=== PATIENT | male | born 2000 | race Caucasian/White ===

== ENCOUNTER 2020-02-19 05:21 | Emergency (ER) | payer OTHER, SELFPAY ==
--- NOTE | 2020-02-19 05:42 | ED.PSYCH ---
HPI - Psych General Stated Complaint: CRISIS Time Seen by Provider: 02/19/20 05:41 MDM - Psych Restraints Face to Face Assessment: Face to Face Assessment: Current Situation: After assessment of the patient, a review of the pertinent medical record and a discussion with nursing staff, I feel the patient requires a restrain intervention. Reaction To: [] Medical Condition: [] Behavioral State: [] Continued Need: []
[2020-02-19 05:55] VITALS: BP 143/98; PULSE 103; RESP 16; TEMP 36.2; O2SAT 99; BMI 21.5
[2020-02-19 06:27] VITALS: BP 143/98; PULSE 103; RESP 18; TEMP 36.2; O2SAT 99
[2020-02-19 06:30] VITALS: BP 143/98; PULSE 103; RESP 20; TEMP 36.2; O2SAT 99
--- NOTE | 2020-02-19 07:27 | ED.PSYCH ---
HPI - Psych General Chief Complaint: Psychiatric Symptoms Stated Complaint: CRISIS Time Seen by Provider: 02/19/20 05:41 Source: patient Mode of arrival: ambulatory History of Present Illness HPI Narrative: 19-year-old male who presents emergency department for evaluation of depression and suicidal ideation. The patient states that he has been depressed and having suicidal ideation for many years. He cannot identify a recent trigger but he states that he is currently suicidal without a plan. He states that the holiday season makes him very depressed. He states in the past he has tried to cut himself. Denies any attempted suicide prior to coming to the emergency department, denies any ingestions. He states that he has been in his usual state of health and has had no known COVID-19 exposures. He denied fever, chills, sore throat, cough, chest pain, shortness of breath, abdominal pain, diarrhea, loss of taste or smell. Review of Systems Review of Systems: Yes all other systems are reviewed and are negative Constitutional: Constitutional: Reports as per HPI Eyes: Eyes: Reports as per HPI ENT: Reports as per HPI Cardiovascular: Cardiovascular: Reports as per HPI Respiratory: Respiratory: Reports as per HPI Gastrointestinal: Gastrointestinal: Reports as per HPI Genitourinary: Genitourinary: Reports as per HPI Musculoskeletal: Musculoskeletal: Reports as per HPI Integumentary/Breasts: Skin/Breast: Reports as per HPI Neurologic: Reports as per HPI and Reports Abnormal speech present Psychiatric: Psychiatric: Reports as per HPI Allergic/Immunologic: Allergic/Immunologic: Reports as per HPI [facility] Past Medical History Attestation statement: The following information was validated with the patient. [facility] Narrative: The patient has a history of depression anxiety, he had a bilateral mastectomy several years ago, he denies tobacco, alcohol and drug use. Medical History (Updated 02/19/20 @ 12:25 by Adolph Aquino MD) Anxiety Depression PTSD (post-traumatic stress disorder) Social History Social History Alcohol intake: never Smoking Status: Never smoker Use of substances other than those prescribed or required for medical reasons: No Advance Directives: No Advance Directives Information Provided: No Physical Exam Vital Signs: Vital Signs: Last Vital Signs Temp 98.6 F 02/19/20 10:07 Pulse 94 02/19/20 10:07 Resp 14 02/19/20 10:07 BP 153/89 H 02/19/20 10:07 Pulse Ox 98 02/19/20 10:07 Body Mass Index 21.5 Const: General: cooperative and healthy appearing Nutritional Appearance: average body habitus Orientation/consciousness: oriented to person and oriented to place Limitations: no limitations HENMT: Head: Yes normal to inspection, Yes normocephalic and Yes atraumatic Ears: external ears normal General nose exam: Normal external nose present Face and sinus: Yes normal facial exam Mouth: Normal oral and palatal mucosa present Throat: Yes posterior oropharynx normal Eyes: General: appearance normal, both eyes and all related structures Alignment and Position: alignment normal Periorbital: periorbital findings normal Eyelids: Yes eyelids normal Conjunctivae: conjunctivae normal Sclerae: sclerae normal Pupils: Equal, round and reactive pupils present Direct Ophthalmoscopy: normal light reflex Neck: Neck: Yes normal visual inspection and Yes supple Thyroid: Thyroid normal Chest: Chest palpation & inspection: normal inspection of the chest and normal palpation of entire chest wall Resp: Effort & Inspection: normal respiratory effort and able to speak in complete sentences Auscultation: clear to auscultation bilaterally, no crackles, no rales and no rhonchi Cardio: Rate: regular rate Rhythm: regular rhythm Heart sounds: S1 normal heart sound present, S2 normal heart sound present and no murmurs GI: Inspection: Yes normal to inspection Palpation (GI): Soft to palpation, nontender and no guarding Auscultation: normal bowel sounds : General: Yes no CVA tenderness Back/Spine/Pelvis: Back: no CVA tenderness Cervical Spine: normal cervical lordosis Thoracic/Lumbar Spine: thoracic and lumbar spine normal to inspection Skin: General skin exam: no rashes or lesions noted Lesions: no lesions Rashes: no rashes Trauma: no lacerations or abrasions Neuro: General: oriented to person and oriented to place Cranial nerves: Yes CN's II-XII intact bilaterally and Yes Equal, round and reactive pupils present Cognition (Neuro): normal cognition Speech: Abnormal speech present Motor exam (neuro): 5/5 motor strength present throughout Extrem: General: Yes normal to inspection and Yes full ROM Psych: Appearance: grossly normal and well kempt Mental Status: mental status grossly normal Speech and movement: Normal speech and movement present Affect: normal affect Attitude: cooperative Thought process: Normal thought process present Thought content: Normal thought content present Insight: Good insight present (Psych) Judgement: Good judgement present (Psych) Course Course Course Narrative: 19-year-old male who presents emergency department for evaluation of suicidal ideation and depression, no recent trigger, no suicide plan, history of cutting himself in the past. Physical examination was unremarkable. The patient is medically cleared for crisis evaluation. 1222: Dr. Aquino's addendum: The patient was evaluated by crisis. The patient is not suicidal at this time and has no plan to hurt himself. Family is willing to pick the patient up. The patient will be discharged home MDM - Psych Restraints Face to Face Assessment: Face to Face Assessment: Current Situation: After assessment of the patient, a review of the pertinent medical record and a discussion with nursing staff, I feel the patient requires a restrain intervention. Reaction To: [] Medical Condition: [] Behavioral State: [] Continued Need: [] Lab Data Labs: Lab Results 02/19/20 Range/Units 07:07 Urine Opiates Screen Not Detected (Not Detect) Ur Barbiturates Screen Not Detected (Not Detect) Ur Phencyclidine Scrn Not Detected (Not Detect) Ur Amphetamines Screen Not Detected (Not Detect) U Benzodiazepines Scrn Not Detected (Not Detect) Urine Cocaine Screen Not Detected (Not Detect) U Marijuana (THC) Screen POSITIVE H (Not Detect) Discharge Plan Discharge Clinical Impression: Suicidal ideation, Depression Patient Disposition: Home, Self-Care Instructions: Depression (ED) Additional Instructions: You were evaluated by our crisis team and you are being discharged home If you feel like your symptoms are getting worse, if you are getting more depressed or develops any other symptoms, please return to the emergency department for evaluation. If you believe that you are going to hurt yourself or hurt anyone else, please return to the emergency department for help. Follow-up with your provider in 2 days for re-evaluation.
--- NOTE | 2020-02-19 07:29 | PC.NURSE ---
Report received. PT resting, denies complaints. PT to be seen by crisis.
[2020-02-19 08:00] LABS: Amphetamine Screen Urine Not Detected (Not Detect); Barbiturates, Urine Not Detected (Not Detect); Benzodiazepines Screen Urine Not Detected (Not Detect); Cannabinoid Screen Urine POSITIVE (Not Detect); Cocaine Screen Urine Not Detected (Not Detect); Opiate Screen Urine Not Detected (Not Detect); Phencyclidine Screen Urine Not Detected (Not Detect)
[2020-02-19 10:07] VITALS: BP 153/89; PULSE 94; RESP 14; TEMP 37; O2SAT 98
== END 2020-02-19 12:43 | disposition home or self-care (01) ==
PROVIDERS: Student in an Organized Health Care Education/Training Program; Emergency Provider Emergency Medicine Emergency Medical Services
DX: R45.851 Suicidal ideations (principal); F32.9 Major depressive disorder, single episode, unspecified; F43.10 Post-traumatic stress disorder, unspecified
CPT/HCPCS: 80307; 99284

== ENCOUNTER 2020-10-19 12:51 | Inpatient (IN) | payer OTHER, SELFPAY ==
--- NOTE | 2020-10-19 12:56 | ECG_ITS ---
Test Reason : OVERDOSE Blood Pressure : / mmHG Vent. Rate : 082 BPM Atrial Rate : 082 BPM P-R Int : 196 ms QRS Dur : 088 ms QT Int : 366 ms P-R-T Axes : 054 047 031 degrees QTc Int : 427 ms Normal sinus rhythm with sinus arrhythmia Possible Left atrial enlargement Borderline ECG No previous ECGs available Referred By: Machelle Ricci Electronically Signed By:DAYNE WILLETT
[2020-10-19 13:02] VITALS: BP 128/76; BP 130/80; PULSE 79; PULSE 90; RESP 17; TEMP 37.1; O2SAT 98; BMI 29.6
--- NOTE | 2020-10-19 13:02 | ED_ITS ---
HPI - Overdose General Chief Complaint: Psychiatric Symptoms Stated Complaint: drug ingestion Time Seen by Provider: 10/19/20 12:56 Source: patient Mode of arrival: ambulatory Limitations: no limitations History of Present Illness complaint: intentional overdose Onset (ago): hour(s) (2 am today almost 12 hours ago) Timing confirmed by: other (self) Substance Ingested acetaminophen: Strength of Substance: 500 Number of Pills Ingested: 30 Total Dose: 50864 Time of Ingestion: 02:00 Intent: suicide attempt How Overdose Was Discovered: called family/friend Context: Intentional Overdose: other (voices told him to) Associated symptoms: depression Treatments Prior to Arrival: none Related Data Home Medications Medication Instructions Recorded Confirmed atomoxetine 25 mg capsule 50 mg PO QAM 10/19/20 10/19/20 dextroamphetamine-amphetamine ER 15 mg PO QAM 10/19/20 10/19/20 15 mg 24hr capsule,extend release (Adderall XR) duloxetine 60 mg capsule,delayed 60 mg PO QAM 10/19/20 10/19/20 release olanzapine 10 mg tablet 10 mg PO BEDTIME 10/19/20 10/19/20 testosterone cypionate 200 mg/mL 100 mg SUBCUT CAMILO 10/19/20 10/19/20 intramuscular oil Allergies Allergy/AdvReac Type Severity Reaction Status Date / Time No Known Allergies Allergy Unverified 02/29/20 16:04 Albuterol Allergy Unknown Uncoded 02/29/20 16:04 Flovent HFA Allergy Unknown Uncoded 02/29/20 16:04 Review of Systems Review of Systems: Constitutional : No Fever, No Chills ENT/Mouth : No Ear Pain, No Nasal Congestion, No sore throat Eyes: No Eye Pain, No Swelling, No Redness Cardiovascular : No Chest Pain, No SOB Respiratory : No Cough, No Sputum, No Dyspnea Gastrointestinal : No Nausea, pos Vomiting (one time at 10am), No Diarrhea, No Hematochezia, No Melena Genitourinary : No Dysuria, No Urinary Frequency, No Hematuria Musculoskeletal : No Myalgias Skin : No Skin Lesions, No rash Neuro : No Weakness, No Numbness, No Paresthesias, No Dizziness, No Headache Psych : positive Anxiety, positive Depression, positive SI no HI, pos AH Heme/Lymph: No Lymphadenopathy Endocrine : No Polyuria, No Polydipsia All other systems reviewed and are negative [facility] Past Medical History Attestation statement: The following information was validated with the patient. Medical History Anxiety Depression PTSD (post-traumatic stress disorder) Social History Social History (Updated 10/19/20 @ 13:30 by Machelle Ricci DO) Alcohol intake: never Patient Tobacco Use Status: Never used Tobacco Use of substances other than those prescribed or required for medical reasons: No Advance Directives: No Advance Directives Information Provided: No Physical Exam Vital Signs: Vital Signs: Last Vital Signs Temp 98.8 F 10/19/20 13:02 Pulse 75 10/19/20 14:50 Resp 14 10/19/20 14:50 BP 128/76 10/19/20 13:02 Pulse Ox 98 10/19/20 14:50 Body Mass Index 29.6 Appearance: Alert. Oriented X3. No acute distress. Eyes: Pupils equal, round and reactive to light. ENT: Pharynx normal. Neck: Normal inspection. Neck supple. CVS: Normal heart rate and rhythm. Pulses normal. Respiratory: No respiratory distress. Breath sounds normal. Abdomen: Soft and non-tender. Skin: Skin warm and dry. Normal skin color. Normal skin turgor. Extremities: No lower extremity edema. No calf ttp Neuro: Oriented X 3. No motor deficit. No sensory deficit. CN 2- 12 intact Psych: pos SI no HI, calm and cooperative Course Course Course Narrative: poison control, continue on protocol, repeat APAP 530 call back with results. Still concerned about ingestion given reports though labs not consistent on nomogram MDM - Overdose MDM Narrative Medical decision making narrative: 19 yo patient significant APAP ingestion almost 12 hours ago did not vomit any pills up this was SI attempt, tox labs ordered, IV nac protocol ordered on arrival. Planned admit for 21 hour protocol pending labs Lab Data Result diagrams: 10/19/20 13:27 10/19/20 13:27 Labs: Lab Results 10/19/20 10/19/20 10/19/20 Range/Units 13:27 13:27 13:27 WBC 5.7 (4.8-10.8) X10*3/uL RBC 4.78 (4.20-5.50) X10*6/uL Hgb 14.4 (12.0-16.0) g/dl Hct 43.0 (37-47) % MCV 90.0 (80-98) fL MCH 30.1 (27.0-33.0) pg MCHC 33.5 (31.0-35.0) g/dl RDW 12.2 (11.0-16.0) % Plt Count 323 (160-400) X10*3/uL MPV 10.2 (9.4-12.3) fL Immature Gran % (Auto) 0.2 (0.0-0.4) % Neut % (Auto) 68.2 (45-73) % Lymph % (Auto) 22.1 (20-40) % [place] % (Auto) 8.4 (2-11) % Eos % (Auto) 0.2 (0-4) % Baso % (Auto) 0.9 (0-2) % Lymph # (Auto) 1.3 (1.2-4.9) X10*3/uL [place] # (Auto) 0.5 (0.1-1.2) X10*3/uL Eos # (Auto) 0.0 (0.0-0.4) X10*3/uL Baso # (Auto) 0.1 (0.0-0.2) X10*3/uL Abs Immat Gran (auto) 0.01 (0.00-0.03) X10*3/uL Absolute Neuts (auto) 3.9 (2.0-8.3) X10*3/uL Absolute Nucleated RBC 0.000 (0.0-0.012) X10*3/uL Nucleated RBC % (auto) 0.0 (0.0-0.2) /100WBC PT (9.9-13.0) SEC INR (0.9-1.1) APTT (24.1-38.0) SEC Sodium 139 (135-145) mmol/L Potassium 4.3 (3.3-5.1) mmol/L Chloride 111 H (96-108) mmol/L Carbon Dioxide 22 (22-29) mmol/L Anion Gap 10 L (12-20) BUN 6 L (9-16) mg/dL Creatinine 0.79 (0.5-1.4) mg/dL Estim Creat Clear Calc 166.2 Estimated GFR > 60 Random Glucose 119 H (60-115) mg/dL Calcium 9.0 (8.4-10.2) mg/dL Magnesium (1.6-2.6) mg/dL Total Bilirubin (0.0-1.0) mg/dL Direct Bilirubin (0.0-0.5) mg/dL AST (5-37) U/L ALT (0-40) U/L Alkaline Phosphatase (39-117) U/L Total Protein (6.5-8.0) g/dL Albumin (3.5-5.0) g/dL Lipase 9 (8-78) U/L Beta HCG, Quant < 2 mIU/mL Salicylates < 5.0 L (15-30) mg/dL Acetaminophen 23 (<30) mcg/mL Ethyl Alcohol mg/dL COVID-19 ([facility]) Negative (Negative) COVID-19 Clin Com See Note 10/19/20 10/19/20 10/19/20 Range/Units 13:27 13:27 13:27 WBC (4.8-10.8) X10*3/uL RBC (4.20-5.50) X10*6/uL Hgb (12.0-16.0) g/dl Hct (37-47) % MCV (80-98) fL MCH (27.0-33.0) pg MCHC (31.0-35.0) g/dl RDW (11.0-16.0) % Plt Count (160-400) X10*3/uL MPV (9.4-12.3) fL Immature Gran % (Auto) (0.0-0.4) % Neut % (Auto) (45-73) % Lymph % (Auto) (20-40) % [place] % (Auto) (2-11) % Eos % (Auto) (0-4) % Baso % (Auto) (0-2) % Lymph # (Auto) (1.2-4.9) X10*3/uL [place] # (Auto) (0.1-1.2) X10*3/uL Eos # (Auto) (0.0-0.4) X10*3/uL Baso # (Auto) (0.0-0.2) X10*3/uL Abs Immat Gran (auto) (0.00-0.03) X10*3/uL Absolute Neuts (auto) (2.0-8.3) X10*3/uL Absolute Nucleated RBC (0.0-0.012) X10*3/uL Nucleated RBC % (auto) (0.0-0.2) /100WBC PT 12.4 (9.9-13.0) SEC INR 1.1 (0.9-1.1) APTT 36.2 (24.1-38.0) SEC Sodium (135-145) mmol/L Potassium (3.3-5.1) mmol/L Chloride (96-108) mmol/L Carbon Dioxide (22-29) mmol/L Anion Gap (12-20) BUN (9-16) mg/dL Creatinine (0.5-1.4) mg/dL Estim Creat Clear Calc Estimated GFR Random Glucose (60-115) mg/dL Calcium (8.4-10.2) mg/dL Magnesium 2.0 (1.6-2.6) mg/dL Total Bilirubin 1.1 H (0.0-1.0) mg/dL Direct Bilirubin 0.4 (0.0-0.5) mg/dL AST 19 (5-37) U/L ALT 18 (0-40) U/L Alkaline Phosphatase 62 (39-117) U/L Total Protein 7.1 (6.5-8.0) g/dL Albumin 4.4 (3.5-5.0) g/dL Lipase (8-78) U/L Beta HCG, Quant mIU/mL Salicylates (15-30) mg/dL Acetaminophen (<30) mcg/mL Ethyl Alcohol < 10 mg/dL COVID-19 ([facility]IS) (Negative) COVID-19 Clin Com ECG Data Attestation: I personally reviewed and interpreted this ECG as follows: ECG interpretation date: 10/19/20 ECG interpretation time: 13:02 Interpretation: Rate: 82 Rhythm: NSR [place]: normal Normal P waves. Normal SANJAY. Normal QRS complex. ST T wave : normal no BOO qTC: normal prior studies: no acute ischemia The study has been interpreted contemporaneously by me. . Critical Care Time Critical Care Time Critical Care Time: Yes Total Critical Care Time: 35 Attestation: poison control consult, pharmacy consult, NAC protocol I attest to this time spent taking care of the patient Discharge Plan Discharge Clinical Impression: Depression Qualifiers: Depression Type: other depression Qualified Code(s): F32.89 - Other specified depressive episodes Acetaminophen overdose Qualifiers: Encounter type: initial encounter Injury intent: intentional self-harm Qualified Code(s): T39.1X2A - Poisoning by 4-Aminophenol derivatives, inte ntional self-harm, initial encounter Patient Disposition: Admitted As Inpatient
[2020-10-19] MEDS: 0.9 % Sodium Chloride 1,000 ML 999 ML IVCONT (13:15)
--- NOTE | 2020-10-19 13:23 | PC.NURSE ---
Spoke with Sujata Smith , cell (mom) concerned regarding next step, if he needs in-patient level of care or home care with support.
[2020-10-19 13:35] LABS: MANUAL DIFF FLAG NO
[2020-10-19 13:37] LABS: Basophils Absolute Auto 0.1 X10*3/uL (0.0-0.2); Basophils Percent Auto 0.9 % (0-2); Eosinophils Percent Auto 0.2 % (0-4); Imm Gran Abs Auto 0.01 X10*3/uL (0.00-0.03); Imm Gran Pct Auto 0.2 % (0.0-0.4); Lymphocytes Absolute Auto 1.3 X10*3/uL (1.2-4.9); Lymphocytes Percent Auto 22.1 % (20-40); Mean Corpuscular Hemoglobin 30.1 pg (27.0-33.0); Monocytes Absolute Auto 0.5 X10*3/uL (0.1-1.2); Monocytes Percent Auto 8.4 % (2-11); Neutrophils Absolute Auto 3.9 X10*3/uL (2.0-8.3); Neutrophils Percent Auto 68.2 % (45-73); Platelet Count 323 X10*3/uL (160-400); Red Cell Distribution Width 12.2 % (11.0-16.0); White Blood Count 5.7 X10*3/uL (4.8-10.8)
[2020-10-19 13:38] LABS: Venous Blood Gas Refer to POC result
[2020-10-19 13:44] LABS: INTERNATIONAL NORM RATIO 1.1 (0.9-1.1); Prothrombin Time 12.4 SEC (9.9-13.0)
[2020-10-19 13:46] LABS: Partial Thromboplastin Time 36.2 SEC (24.1-38.0)
[2020-10-19 13:57] LABS: COVID-19 Test Negative (Negative); Ethanol < 10 mg/dL; IDNOW Serial# 55D5AD1C
--- NOTE | 2020-10-19 13:57 | PHA.MEDREC ---
Pharmacy Consult ? Medication Reconciliation Pharmacy has completed the medication reconciliation. Patient reports taking Stattera 50mg. Patient has a recently fill history for Stattera 25mg and 60mg, it is possible that patient is being titrate up. Patient reports missing the testosterone dose on 10/15/2020. Rebecca Mc, EstebanD
[2020-10-19 13:59] LABS: Alanine Aminotransferase 18 U/L (0-40); Albumin Level 4.4 g/dL (3.5-5.0); Alkaline Phosphatase 62 U/L (39-117); Aspartate Amino Transferase 19 U/L (5-37); Bilirubin Direct 0.4 mg/dL (0.0-0.5); Bilirubin Total 1.1 mg/dL (0.0-1.0); Total Protein 7.1 g/dL (6.5-8.0)
[2020-10-19 14:01] LABS: Anion Gap 10 (12-20); Blood Urea Nitrogen 6 mg/dL (9-16); Carbon Dioxide 22 mmol/L (22-29); Chloride 111 mmol/L (96-108); Creatinine Clr Calc Pharmacy 166.2; Estimated Glomerular Filt Rate > 60; Glucose Random 119 mg/dL (60-115); Lipase 9 U/L (8-78); Potassium 4.3 mmol/L (3.3-5.1); Sodium 139 mmol/L (135-145)
[2020-10-19 14:05] LABS: Acetaminophen LAB 23 mcg/mL (<30); Salicylate < 5.0 mg/dL (15-30)
[2020-10-19 14:08] LABS: HCG Quantitative < 2 mIU/mL
[2020-10-19] MEDS: ondansetron HCL 4 MG/2 ML VIAL IVPUSH (14:49)
[2020-10-19 14:50] VITALS: PULSE 75; RESP 14; O2SAT 98
--- NOTE | 2020-10-19 15:16 | PC.NURSE ---
pt awake and alert in bed, cooperative. he continues to report thoughts of SI. requesting fluids and something to eat. pt had some nausea, given Zofran with good effect.
--- NOTE | 2020-10-19 15:20 | PM.IMHP ---
History of Present Illness Date of Service: 10/19/20 Chief Complaint: overdose 19yo F->M pt with PTSD, depression, ADHD presenting after intentionally ingesting 30 x 500mg APAP plus 5 x 200 mg IBU at 02:30 this morning in an attempt to kill himself. Endorses depressed mood. He hears voices, though not commanding him to hurt himself. Complains of nausea and epigastric pain. No fever or confusion. Denies other substance ingestion and does not use drugs other than THC in the past. Multiple psychiatric hospitalizations. In the ED, APAP level at 13:17 was 23, below the treatment threshold. However, Poison Control recommended that the patient be admitted and given the 20-hour NAC protocol, which has been started. Review of Systems Review of Systems: Yes all other systems are reviewed and are negative [facility] Medical History ADHD Anxiety Depression PTSD (post-traumatic stress disorder) Pertinent family history: no liver disease Social History Alcohol intake: never Patient Tobacco Use Status: Never used Tobacco Use of substances other than those prescribed or required for medical reasons: No Advance Directives: No Advance Directives Information Provided: No Meds Allergies Allergy/AdvReac Type Severity Reaction Status Date / Time No Known Allergies Allergy Unverified 02/29/20 16:04 Albuterol Allergy Unknown Uncoded 02/29/20 16:04 Flovent HFA Allergy Unknown Uncoded 02/29/20 16:04 Active Medications: Current Medications Generic Name Dose Route Start Last Admin Trade Name Freq PRN Reason Stop Dose Admin Acetylcysteine 4,550 mg/ 522.75 mls @ 125 mls/hr 10/19/20 14:20 Dextrose IV 10/19/20 18:30 ONCE ONE Acetylcysteine 9,100 mg/ 1,045.5 mls @ 62.5 mls/hr 10/19/20 18:30 Dextrose IV 10/20/20 11:13 ONCE ONE Pharmacy Consult 1 each 10/19/20 12:56 Consult Rx Perform Med Rec MISCELLANE ONCE PRN Consult order Home Medications Medication Instructions Recorded Confirmed Last Taken Type atomoxetine 25 mg capsule 50 mg PO QAM 10/19/20 10/19/20 10/18/20 History dextroamphetamine-amphetamine ER 15 mg PO QAM 10/19/20 10/19/20 10/18/20 History 15 mg 24hr capsule,extend release (Adderall XR) duloxetine 60 mg capsule,delayed 60 mg PO QAM 10/19/20 10/19/20 10/18/20 History release olanzapine 10 mg tablet 10 mg PO BEDTIME 10/19/20 10/19/20 10/18/20 History testosterone cypionate 200 mg/mL 100 mg SUBCUT CAMILO 10/19/20 10/19/20 10/08/20 History intramuscular oil Physical Exam Vital Signs and Narrative: Vital Signs: Last Vital Signs Temp 98.8 F 10/19/20 13:02 Pulse 75 10/19/20 14:50 Resp 14 10/19/20 14:50 BP 128/76 10/19/20 13:02 Pulse Ox 98 10/19/20 14:50 Body Mass Index 29.6 Gen: in no acute distress HEENT: sclera anicteric, moist mucus membranes Neck: supple Lungs: clear to auscultation bilaterally Heart: regular rate and rhythm, no murmurs Abd: soft, mild epigastric tenderness with no rebound, non-distended Ext: no edema Skin: warm/well-perfused Neuro: alert and oriented x3, no focal findings Psych: appropriate affect Results Labs CBC and Chem 7: 10/19/20 13:27 10/19/20 13:27 Labs: Laboratory Results - last 24 hr 10/19/20 10/19/20 10/19/20 13:27 13:27 13:27 MCV 90.0 MCH 30.1 MCHC 33.5 RDW 12.2 Plt Count 323 MPV 10.2 Immature Gran % (Auto) 0.2 Neut % (Auto) 68.2 Lymph % (Auto) 22.1 [place] % (Auto) 8.4 Eos % (Auto) 0.2 Baso % (Auto) 0.9 Lymph # (Auto) 1.3 [place] # (Auto) 0.5 Eos # (Auto) 0.0 Baso # (Auto) 0.1 Abs Immat Gran (auto) 0.01 Absolute Neuts (auto) 3.9 Absolute Nucleated RBC 0.000 Nucleated RBC % (auto) 0.0 PT INR APTT Anion Gap 10 L Estim Creat Clear Calc 166.2 Estimated GFR > 60 Random Glucose 119 H Calcium 9.0 Magnesium Total Bilirubin Direct Bilirubin AST ALT Alkaline Phosphatase Total Protein Albumin Lipase 9 Beta HCG, Quant < 2 Salicylates < 5.0 L Acetaminophen 23 Ethyl Alcohol COVID-19 ([facility]) Negative COVID-19 Clin Com See Note 10/19/20 10/19/20 10/19/20 13:27 13:27 13:27 MCV MCH MCHC RDW Plt Count MPV Immature Gran % (Auto) Neut % (Auto) Lymph % (Auto) [place] % (Auto) Eos % (Auto) Baso % (Auto) Lymph # (Auto) [place] # (Auto) Eos # (Auto) Baso # (Auto) Abs Immat Gran (auto) Absolute Neuts (auto) Absolute Nucleated RBC Nucleated RBC % (auto) PT 12.4 INR 1.1 APTT 36.2 Anion Gap Estim Creat Clear Calc Estimated GFR Random Glucose Calcium Magnesium 2.0 Total Bilirubin 1.1 H Direct Bilirubin 0.4 AST 19 ALT 18 Alkaline Phosphatase 62 Total Protein 7.1 Albumin 4.4 Lipase Beta HCG, Quant Salicylates Acetaminophen Ethyl Alcohol < 10 COVID-19 ([facility]) COVID-19 Clin Com EKG: Normal sinus rhythm with sinus arrhythmia Assessment and Plan (1) Acetaminophen overdose: Qualifiers: Encounter type: initial encounter Injury intent: intentional self-harm Qualified Code(s): T39.1X2A - Poisoning by 4-Aminophenol derivatives, intentional self-harm, initial encounter Status: Acute 19yo transgender F->M with ADHD, depression, PTSD presenting after intentional APAP overdose (91536 mg at 02:30) # APAP overdose - admit to [facility] [place] for 20-hr NAC protocol, check LFTs in am + update Poison Control # JOEL - JESSI rust consult after medically cleared # depression # PTSD - continue duloxetine + olanzapine # ADHD - Adderall + atomoxetine non-formulary; will need to be brought in from home # transgender - pt on testosterone therapy, can continue if brought in from home # VTE ppx - early ambulation; low-risk # code - FULL # dispo - will need IP psychiatry after medically cleared Quality Stroke Does the patient have a stroke diagnosis?: No VTE Prior VTE?: No VTE Risk Level:: Medical - low VTE Device Contraindication: N/A - Device Ordered VTE Drug Contraindication: N/A - Med Ordered
[2020-10-19 16:09] VITALS: PULSE 87; RESP 15
[2020-10-19] MEDS: DULoxetine HCl 60 MG CAPSULE.DR PO (16:09)
[2020-10-19] MEDS: 0.9 % Sodium Chloride Flush 3 ML SYRINGE IVFLUSH (16:10)
[2020-10-19 16:52] LABS: Amphetamine Screen Urine Not Detected (Not Detect); Barbiturates, Urine Not Detected (Not Detect); Benzodiazepines Screen Urine Not Detected (Not Detect); Cannabinoid Screen Urine Not Detected (Not Detect); Cocaine Screen Urine Not Detected (Not Detect); Fentanyl, urine Not Detected (Not Detect); Opiate Screen Urine Not Detected (Not Detect); Phencyclidine Screen Urine Not Detected (Not Detect)
[2020-10-19 16:53] LABS: Glucose Urine UA NEG (NEG); Leukocyte Esterase Urine NEG (NEG); Nitrite Urine NEG (NEG); PH 6.5 (5.0-8.0); Urine Blood NEG (NEG); Urine Ketones >=80 MG/DL (NEG); Urine Protein NEG (NEG-TRACE)
--- NOTE | 2020-10-19 17:03 | MHC.CARE ---
Pt will require an crisis evaluation once medically cleared. Given the pt's age, pt will require an BHN referral. Please consult CARE team to assist with Smart sheet (BHN) referral once cleared.
[2020-10-19 17:11] LABS: Appearance Urine CLEAR; Color Urine YELLOW
[2020-10-19 18:24] VITALS: BP 140/80; PULSE 85; RESP 18; TEMP 36.6; O2SAT 98
[2020-10-19 19:17] LABS: Acetaminophen LAB 3 mcg/mL (<30)
[2020-10-19] MEDS: OLANZapine 10 MG TABLET PO (21:18)
[2020-10-20 01:13] VITALS: BP 128/66; PULSE 104; RESP 15; TEMP 36.6; O2SAT 97
[2020-10-20 03:48] VITALS: BP 124/56; PULSE 84; RESP 17; TEMP 36.1; O2SAT 96
[2020-10-20 06:16] LABS: MANUAL DIFF FLAG NO
[2020-10-20 06:39] LABS: Eosinophils Percent Auto 1.1 % (0-4); Hematocrit 42.4 % (42-52); Imm Gran Pct Auto 0.3 % (0.0-0.4); Lymphocytes Percent Auto 36.1 % (20-40); Mean Corpuscular Hemoglobin 29.9 pg (27.0-33.0); Mean Corpuscular Volume 90.6 fL (80-98); Mean Platelet Volume 10.4 fL (9.4-12.4); Monocytes Percent Auto 7.3 % (2-11); Neutrophils Percent Auto 54.2 % (45-73); Platelet Count 292 X10*3/uL (160-400); Red Blood Count 4.68 X10*6/uL (4.60-5.80); Red Cell Distribution Width 12.6 % (11.0-16.0); White Blood Count 8.8 X10*3/uL (4.8-10.8)
[2020-10-20 06:40] LABS: Basophils Absolute Auto 0.1 X10*3/uL (0.0-0.2); Eosinophils Absolute Auto 0.1 X10*3/uL (0.0-0.4); Imm Gran Abs Auto 0.03 X10*3/uL (0.00-0.03); Lymphocytes Absolute Auto 3.2 X10*3/uL (1.2-4.9); Monocytes Absolute Auto 0.6 X10*3/uL (0.1-1.2); Neutrophils Absolute Auto 4.8 X10*3/uL (2.0-8.3)
[2020-10-20 06:47] LABS: INTERNATIONAL NORM RATIO 1.2 (0.9-1.1); Prothrombin Time 13.1 SEC (9.9-13.0)
[2020-10-20 07:10] LABS: Acetaminophen LAB < 1 mcg/mL (<30); Alanine Aminotransferase 16 U/L (0-40); Albumin Level 3.8 g/dL (3.5-5.0); Alkaline Phosphatase 51 U/L (39-117); Anion Gap 11 (12-20); Aspartate Amino Transferase 15 U/L (5-37); Bilirubin Total 1.6 mg/dL (0.0-1.0); Blood Urea Nitrogen 5 mg/dL (9-16); Calcium 8.7 mg/dL (8.4-10.2); Carbon Dioxide 24 mmol/L (22-29); Chloride 110 mmol/L (96-108); Estimated Glomerular Filt Rate > 60; Glucose Random 99 mg/dL (60-115); Potassium 4.2 mmol/L (3.3-5.1); Sodium 141 mmol/L (135-145); Total Protein 6.3 g/dL (6.5-8.0)
[2020-10-20 08:00] VITALS: BP 135/74; PULSE 90; RESP 20; TEMP 36.6; O2SAT 96
--- NOTE | 2020-10-20 08:31 | MHC.CM.PN ---
Per H&P, Patient will need Inpatient Psych once medically cleared (Suicide/Overdose attempt). PCP is DR. Alyx Shanks. Patient lives with his Foster Parents.CM has initiated and will follow for dc planning.
[2020-10-20] MEDS: DULoxetine HCl 60 MG CAPSULE.DR PO (09:39)
--- NOTE | 2020-10-20 10:58 | MHC.CARE ---
CARE Team has placed referral to [facility] crisis for evaluation today, as pt is part of the [facility] program with [facility]. ETA pending. Per Dr. Walden, pt will be medically cleared shortly.
[2020-10-20 11:29] VITALS: BP 110/84; PULSE 90; RESP 16; TEMP 37; O2SAT 97
[2020-10-20 12:17] LABS: INTERNATIONAL NORM RATIO 1.2 (0.9-1.1); Prothrombin Time 13.3 SEC (9.9-13.0)
[2020-10-20 12:41] LABS: Acetaminophen LAB < 1 mcg/mL (<30); Alanine Aminotransferase 19 U/L (0-40); Alkaline Phosphatase 55 U/L (39-117); Anion Gap 8 (12-20); Aspartate Amino Transferase 16 U/L (5-37); Bilirubin Total 1.6 mg/dL (0.0-1.0); Blood Urea Nitrogen 5 mg/dL (9-16); Calcium 9.2 mg/dL (8.4-10.2); Carbon Dioxide 27 mmol/L (22-29); Chloride 110 mmol/L (96-108); Creatinine Clr Calc Pharmacy 172.8; Estimated Glomerular Filt Rate > 60; Glucose Random 115 mg/dL (60-115); Potassium 4.4 mmol/L (3.3-5.1); Sodium 141 mmol/L (135-145); Total Protein 6.5 g/dL (6.5-8.0)
--- NOTE | 2020-10-20 12:59 | P.DS_ITS ---
DS: Providers Provider Date of Service: 10/20/20 Date of admission: 10/19/20 15:25 Primary care physician: TERESA Raza Consults: 10/19/20 15:11 Consult for Sitter Routine Reason for consultation: SI DS: Transfer Hospital Acceptance Reason for Transfer: inpatient psychiatry [place] of Facility: [facility] [place] Psychiatry Accepting Provider: Uche Garcia MD DS: Diagnosis Discharge Diagnosis (1) Acetaminophen overdose: Status: Acute (2) Suicide attempt by acetaminophen overdose: Status: Acute DS: Medications Discharge Medications Home Medications: Home Medications Medication Instructions Recorded Confirmed atomoxetine 25 mg capsule 50 mg PO QAM 10/19/20 10/19/20 dextroamphetamine-amphetamine ER 15 mg PO QAM 10/19/20 10/19/20 15 mg 24hr capsule,extend release (Adderall XR) duloxetine 60 mg capsule,delayed 60 mg PO QAM 10/19/20 10/19/20 release olanzapine 10 mg tablet 10 mg PO BEDTIME 10/19/20 10/19/20 testosterone cypionate 200 mg/mL 100 mg SUBCUT CAMILO 10/19/20 10/19/20 intramuscular oil DS: Summary Hospital Course Hospital Course: from my admission H+P, 10/19/20: 19yo F->M pt with PTSD, depression, ADHD presenting after intentionally ingesting 30 x 500mg APAP plus 5 x 200 mg IBU at 02:30 this morning in an attempt to kill himself.? Endorses depressed mood.? He hears voices, though not commanding him to hurt himself.? Complains of nausea and epigastric pain.? No fever or confusion.? Denies other substance ingestion and does not use drugs other than THC in the past.? Multiple psychiatric hospitalizations. In the ED, APAP level at 13:17 was 23, below the treatment threshold.? However, Poison Control recommended that the patient be admitted and given the 20-hour NAC protocol, which has been started. The patient was admitted to the [facility] and given the 20-hour NAC protocol. He did not develop any signs of liver injury and mental status was normal. He was cleared by poison control and transferred to inpatient psychiatry. Time Spent with Patient Time attestation: Total time spent providing and/or coordinating discharge services: Discharge coordination time: Greater than 30 minutes Quality: Stroke Does the patient have a stroke diagnosis?: No Physical Exam Vital Signs: Vital Signs: Last Vital Signs Temp 98.6 F 10/20/20 11:29 Pulse 90 10/20/20 11:29 Resp 16 10/20/20 11:29 BP 110/84 10/20/20 11:29 Pulse Ox 97 10/20/20 11:29 Body Mass Index 29.6 Gen: in no acute distress HEENT: sclera anicteric, moist mucus membranes Neck: supple Lungs: clear to auscultation bilaterally Heart: regular rate and rhythm, no murmurs Abd: soft, non-tender, non-distended Ext: no edema Skin: warm/well-perfused Neuro: alert and oriented x3, no focal findings, no asterixis noted Psych: restricted affect DS: Data Data Completed and Pending Completed studies during hospitalization [Text1]: Laboratory Results WBC 8.8 X10*3/uL (4.8-10.8) 10/20/20 05:09 RBC 4.68 X10*6/uL (4.60-5.80) 10/20/20 05:09 Hgb 14.0 g/dl (14.0-18.0) 10/20/20 05:09 Hct 42.4 % (42-52) 10/20/20 05:09 MCV 90.6 fL (80-98) 10/20/20 05:09 MCH 29.9 pg (27.0-33.0) 10/20/20 05:09 MCHC 33.0 g/dl (31.0-36.0) 10/20/20 05:09 RDW 12.6 % (11.0-16.0) 10/20/20 05:09 Plt Count 292 X10*3/uL (160-400) 10/20/20 05:09 MPV 10.4 fL (9.4-12.4) 10/20/20 05:09 Immature Gran % (Auto) 0.3 % (0.0-0.4) 10/20/20 05:09 Neut % (Auto) 54.2 % (45-73) 10/20/20 05:09 Lymph % (Auto) 36.1 % (20-40) 10/20/20 05:09 [place] % (Auto) 7.3 % (2-11) 10/20/20 05:09 Eos % (Auto) 1.1 % (0-4) 10/20/20 05:09 Baso % (Auto) 1.0 % (0-2) 10/20/20 05:09 Lymph # (Auto) 3.2 X10*3/uL (1.2-4.9) 10/20/20 05:09 [place] # (Auto) 0.6 X10*3/uL (0.1-1.2) 10/20/20 05:09 Eos # (Auto) 0.1 X10*3/uL (0.0-0.4) 10/20/20 05:09 Baso # (Auto) 0.1 X10*3/uL (0.0-0.2) 10/20/20 05:09 Abs Immat Gran (auto) 0.03 X10*3/uL (0.00-0.03) 10/20/20 05:09 Absolute Neuts (auto) 4.8 X10*3/uL (2.0-8.3) 10/20/20 05:09 Absolute Nucleated RBC 0.000 X10*3/uL (0.0-0.012) 10/20/20 05:09 Nucleated RBC % (auto) 0.0 /100WBC (0.0-0.2) 10/20/20 05:09 PT 13.3 SEC (9.9-13.0) H 10/20/20 12:03 INR 1.2 (0.9-1.1) H 10/20/20 12:03 APTT 36.2 SEC (24.1-38.0) 10/19/20 13:27 Sodium 141 mmol/L (135-145) 10/20/20 12:03 Potassium 4.4 mmol/L (3.3-5.1) 10/20/20 12:03 Chloride 110 mmol/L (96-108) H 10/20/20 12:03 Carbon Dioxide 27 mmol/L (22-29) 10/20/20 12:03 Anion Gap 8 (12-20) L 10/20/20 12:03 BUN 5 mg/dL (9-16) L 10/20/20 12:03 Creatinine 0.76 mg/dL (0.5-1.4) 10/20/20 12:03 Estim Creat Clear Calc 172.8 10/20/20 12:03 Estimated GFR > 60 10/20/20 12:03 Random Glucose 115 mg/dL (60-115) 10/20/20 12:03 Calcium 9.2 mg/dL (8.4-10.2) 10/20/20 12:03 Magnesium 2.0 mg/dL (1.6-2.6) 10/19/20 13:27 Total Bilirubin 1.6 mg/dL (0.0-1.0) H 10/20/20 12:03 Direct Bilirubin 0.4 mg/dL (0.0-0.5) 10/19/20 13:27 AST 16 U/L (5-37) 10/20/20 12:03 ALT 19 U/L (0-40) 10/20/20 12:03 Alkaline Phosphatase 55 U/L (39-117) 10/20/20 12:03 Total Protein 6.5 g/dL (6.5-8.0) 10/20/20 12:03 Albumin 4.0 g/dL (3.5-5.0) 10/20/20 12:03 Lipase 9 U/L (8-78) 10/19/20 13:27 Beta HCG, Quant < 2 mIU/mL 10/19/20 13:27 Urine Color YELLOW 10/19/20 16:27 Urine Appearance CLEAR 10/19/20 16:27 Urine pH 6.5 (5.0-8.0) 10/19/20 16:27 Ur Specific [place] 1.010 (1.005-1.025) 10/19/20 16:27 Urine Protein NEG MG/DL (NEG-TRACE) 10/19/20 16:27 Urine Glucose (UA) NEG MG/DL (NEG) 10/19/20 16:27 Urine Ketones >=80 MG/DL (NEG) 10/19/20 16:27 Urine Blood NEG (NEG) 10/19/20 16:27 Urine Nitrite NEG (NEG) 10/19/20 16:27 Ur Leukocyte Esterase NEG (NEG) 10/19/20 16:27 Salicylates < 5.0 mg/dL (15-30) L 10/19/20 13:27 Urine Opiates Screen Not Detected (Not Detect) 10/19/20 16:27 Urine Fentanyl Screen Not Detected (Not Detect) 10/19/20 16:27 Acetaminophen < 1 mcg/mL (<30) 10/20/20 12:03 Ur Barbiturates Screen Not Detected (Not Detect) 10/19/20 16:27 Ur Phencyclidine Scrn Not Detected (Not Detect) 10/19/20 16:27 Ur Amphetamines Screen Not Detected (Not Detect) 10/19/20 16:27 U Benzodiazepines Scrn Not Detected (Not Detect) 10/19/20 16:27 Urine Cocaine Screen Not Detected (Not Detect) 10/19/20 16:27 U Marijuana (THC) Screen Not Detected (Not Detect) 10/19/20 16:27 Ethyl Alcohol < 10 mg/dL 10/19/20 13:27 COVID-19 (GLADIS) Negative (Negative) 10/19/20 13:27 COVID-19 Clin Com See Note 10/19/20 13:27 Labs on day of discharge: Laboratory Results - last 24 hr 10/19/20 10/19/20 10/19/20 13:27 13:27 13:27 WBC 5.7 RBC 4.78 Hgb 14.4 Hct 43.0 MCV 90.0 MCH 30.1 MCHC 33.5 RDW 12.2 Plt Count 323 MPV 10.2 Immature Gran % (Auto) 0.2 Neut % (Auto) 68.2 Lymph % (Auto) 22.1 [place] % (Auto) 8.4 Eos % (Auto) 0.2 Baso % (Auto) 0.9 Lymph # (Auto) 1.3 [place] # (Auto) 0.5 Eos # (Auto) 0.0 Baso # (Auto) 0.1 Abs Immat Gran (auto) 0.01 Absolute Neuts (auto) 3.9 Absolute Nucleated RBC 0.000 Nucleated RBC % (auto) 0.0 PT INR APTT Sodium 139 Potassium 4.3 Chloride 111 H Carbon Dioxide 22 Anion Gap 10 L BUN 6 L Creatinine 0.79 Estim Creat Clear Calc 166.2 Estimated GFR > 60 Random Glucose 119 H Calcium 9.0 Magnesium Total Bilirubin Direct Bilirubin AST ALT Alkaline Phosphatase Total Protein Albumin Lipase 9 Beta HCG, Quant < 2 Urine Color Urine Appearance Urine pH Ur Specific [place] Urine Protein Urine Glucose (UA) Urine Ketones Urine Blood Urine Nitrite Ur Leukocyte Esterase Salicylates < 5.0 L Urine Opiates Screen Urine Fentanyl Screen Acetaminophen 23 Ur Barbiturates Screen Ur Phencyclidine Scrn Ur Amphetamines Screen U Benzodiazepines Scrn Urine Cocaine Screen U Marijuana (THC) Screen Ethyl Alcohol COVID-19 (GLADIS) Negative COVID-19 Collax Com See Note 10/19/20 10/19/20 10/19/20 13:27 13:27 13:27 WBC RBC Hgb Hct MCV MCH MCHC RDW Plt Count MPV Immature Gran % (Auto) Neut % (Auto) Lymph % (Auto) [place] % (Auto) Eos % (Auto) Baso % (Auto) Lymph # (Auto) [place] # (Auto) Eos # (Auto) Baso # (Auto) Abs Immat Gran (auto) Absolute Neuts (auto) Absolute Nucleated RBC Nucleated RBC % (auto) PT 12.4 INR 1.1 APTT 36.2 Sodium Potassium Chloride Carbon Dioxide Anion Gap BUN Creatinine Estim Creat Clear Calc Estimated GFR Random Glucose Calcium Magnesium 2.0 Total Bilirubin 1.1 H Direct Bilirubin 0.4 AST 19 ALT 18 Alkaline Phosphatase 62 Total Protein 7.1 Albumin 4.4 Lipase Beta HCG, Quant Urine Color Urine Appearance Urine pH Ur Specific [place] Urine Protein Urine Glucose (UA) Urine Ketones Urine Blood Urine Nitrite Ur Leukocyte Esterase Salicylates Urine Opiates Screen Urine Fentanyl Screen Acetaminophen Ur Barbiturates Screen Ur Phencyclidine Scrn Ur Amphetamines Screen U Benzodiazepines Scrn Urine Cocaine Screen U Marijuana (THC) Screen Ethyl Alcohol < 10 COVID-19 (GLADIS) COVID-19 [employer] 10/19/20 10/19/20 10/19/20 16:27 16:27 18:18 WBC RBC Hgb Hct MCV MCH MCHC RDW Plt Count MPV Immature Gran % (Auto) Neut % (Auto) Lymph % (Auto) [place] % (Auto) Eos % (Auto) Baso % (Auto) Lymph # (Auto) [place] # (Auto) Eos # (Auto) Baso # (Auto) Abs Immat Gran (auto) Absolute Neuts (auto) Absolute Nucleated RBC Nucleated RBC % (auto) PT INR APTT Sodium Potassium Chloride Carbon Dioxide Anion Gap BUN Creatinine Estim Creat Clear Calc Estimated GFR Random Glucose Calcium Magnesium Total Bilirubin Direct Bilirubin AST ALT Alkaline Phosphatase Total Protein Albumin Lipase Beta HCG, Quant Urine Color YELLOW Urine Appearance CLEAR Urine pH 6.5 Ur Specific [place] 1.010 Urine Protein NEG Urine Glucose (UA) NEG Urine Ketones >=80 Urine Blood NEG Urine Nitrite NEG Ur Leukocyte Esterase NEG Salicylates Urine Opiates Screen Not Detected Urine Fentanyl Screen Not Detected Acetaminophen 3 Ur Barbiturates Screen Not Detected Ur Phencyclidine Scrn Not Detected Ur Amphetamines Screen Not Detected U Benzodiazepines Scrn Not Detected Urine Cocaine Screen Not Detected U Marijuana (THC) Screen Not Detected Ethyl Alcohol COVID-19 (GLADIS) COVID-19 Collax Com 10/20/20 10/20/20 10/20/20 05:09 05:09 05:09 WBC 8.8 RBC 4.68 Hgb 14.0 Hct 42.4 MCV 90.6 MCH 29.9 MCHC 33.0 RDW 12.6 Plt Count 292 MPV 10.4 Immature Gran % (Auto) 0.3 Neut % (Auto) 54.2 Lymph % (Auto) 36.1 [place] % (Auto) 7.3 Eos % (Auto) 1.1 Baso % (Auto) 1.0 Lymph # (Auto) 3.2 [place] # (Auto) 0.6 Eos # (Auto) 0.1 Baso # (Auto) 0.1 Abs Immat Gran (auto) 0.03 Absolute Neuts (auto) 4.8 Absolute Nucleated RBC 0.000 Nucleated RBC % (auto) 0.0 PT 13.1 H INR 1.2 H APTT Sodium 141 Potassium 4.2 Chloride 110 H Carbon Dioxide 24 Anion Gap 11 L BUN 5 L Creatinine 0.71 Estim Creat Clear Calc 185.0 Estimated GFR > 60 Random Glucose 99 Calcium 8.7 Magnesium Total Bilirubin 1.6 H Direct Bilirubin AST 15 ALT 16 Alkaline Phosphatase 51 Total Protein 6.3 L Albumin 3.8 Lipase Beta HCG, Quant Urine Color Urine Appearance Urine pH Ur Specific [place] Urine Protein Urine Glucose (UA) Urine Ketones Urine Blood Urine Nitrite Ur Leukocyte Esterase Salicylates Urine Opiates Screen Urine Fentanyl Screen Acetaminophen < 1 Ur Barbiturates Screen Ur Phencyclidine Scrn Ur Amphetamines Screen U Benzodiazepines Scrn Urine Cocaine Screen U Marijuana (THC) Screen Ethyl Alcohol COVID-19 (GLADIS) COVID-19 Collax Com 10/20/20 10/20/20 12:03 12:03 WBC RBC Hgb Hct MCV MCH MCHC RDW Plt Count MPV Immature Gran % (Auto) Neut % (Auto) Lymph % (Auto) [place] % (Auto) Eos % (Auto) Baso % (Auto) Lymph # (Auto) [place] # (Auto) Eos # (Auto) Baso # (Auto) Abs Immat Gran (auto) Absolute Neuts (auto) Absolute Nucleated RBC Nucleated RBC % (auto) PT 13.3 H INR 1.2 H APTT Sodium 141 Potassium 4.4 Chloride 110 H Carbon Dioxide 27 Anion Gap 8 L BUN 5 L Creatinine 0.76 Estim Creat Clear Calc 172.8 Estimated GFR > 60 Random Glucose 115 Calcium 9.2 Magnesium Total Bilirubin 1.6 H Direct Bilirubin AST 16 ALT 19 Alkaline Phosphatase 55 Total Protein 6.5 Albumin 4.0 Lipase Beta HCG, Quant Urine Color Urine Appearance Urine pH Ur Specific [place] Urine Protein Urine Glucose (UA) Urine Ketones Urine Blood Urine Nitrite Ur Leukocyte Esterase Salicylates Urine Opiates Screen Urine Fentanyl Screen Acetaminophen < 1 Ur Barbiturates Screen Ur Phencyclidine Scrn Ur Amphetamines Screen U Benzodiazepines Scrn Urine Cocaine Screen U Marijuana (THC) Screen Ethyl Alcohol COVID-19 (GLADIS) COVID-19 Clin Com Discharge Plan Discharge Disposition: Xfer Psychiatric Hosp Referrals: Alyx Shanks PA [Primary Care Provider] - 1 Week Discharge Medications: Continued olanzapine 10 mg tablet 10 mg PO BEDTIME RF: 0 testosterone cypionate 200 mg/mL oil 100 mg subcut CAMILO RF: 0 dextroamphetamine-amphetamine [Adderall XR] 15 mg capsule,extended release 24 hr 15 mg PO QAM RF: 0 atomoxetine 25 mg capsule 50 mg PO QAM RF: 0 duloxetine 60 mg capsule,delayed release(DR/EC) 60 mg PO QAM RF: 0 Discharge Orders: Discharge Order (Routine); Ordered 10/20/20 Ordered By: Faviola Walden Forms: Patient Portal Discharge page Care Plan Goals: mental wellness Health Concerns: intentional overdose of acetaminophen Plan of Treatment: inpatient psychiatry Assessment: as above Patient Instructions: Depression (DC)
[2020-10-20 16:00] VITALS: BP 144/73; PULSE 94; RESP 18; TEMP 36.6; O2SAT 97
[2020-10-20 19:49] VITALS: BP 144/73; PULSE 94; RESP 18; TEMP 36.6; O2SAT 97
[2020-10-23 08:41] LABS: VBG Base Excess -2.2 mmol/L; VBG HCO3 22 mmol/L (22-26); VBG pCO2 37 mmHg; VBG pH 7.38 (7.32-7.43); VBG pO2 173 mmHg
[2020-10-24 09:11] LABS: Hemoglobin 14.4 g/dl (14.0-18.0); Red Blood Count 4.78 X10*6/uL (4.60-5.80)
[2020-10-24 09:12] LABS: Mean Corpuscular HGB Conc 33.5 g/dl (31.0-36.0)
[2020-10-24 09:13] LABS: Mean Platelet Volume 10.2 fL (9.4-12.4)
== END 2020-10-20 21:11 | DRG 817 ==
LOC: HO.ED 13:41 → HO.IMC 16:30 → HO.PADLT16 10-20 13:06 → HO.IMC 10-20 14:01
PROVIDERS: Admitting Provider Family Medicine; Emergency Provider Emergency Medicine; PCP Physician Assistant; Visit Provider Family Medicine
DX: T39.1X2A Poisoning by 4-Aminophenol derivatives, intentional self-harm, initial encounter (principal); R45.851 Suicidal ideations; F32.89 Other specified depressive episodes; F64.0 Transsexualism; F43.10 Post-traumatic stress disorder, unspecified; F90.9 Attention-deficit hyperactivity disorder, unspecified type; Z20.822 Contact with and (suspected) exposure to COVID-19; Z79.899 Other long term (current) drug therapy
CPT/HCPCS: 36415; 80048; 80053; 80076; 80143; 80179; 80307; 81003; 82077; 82803; 83690; 83735; 84702; 85025; 85610; 85730; 87635; 93005; 96365; 96366; 96375; 99285; 99291; J0132; J2405

== ENCOUNTER 2020-10-20 21:52 | Inpatient (IN) | payer OTHER, SELFPAY ==
[2020-10-20 22:15] VITALS: BP 129/90; PULSE 103; TEMP 36.8; O2SAT 96
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
[2020-10-20] MEDS: OLANZapine 7.5 MG TABLET 15 MG PO (23:05)
--- NOTE | 2020-10-20 23:56 | PC.ADMIT ---
Pt is a 19 year old male admitted to the unit after referral from the CARE team at [facility] on IM. Arrived on unit at 2210 and placed on 5 minute safety checks per unit policy. Legal status: CV. Medical issues: denies. Substance use: denies. Precipitant: Pt reports that he has been struggling with anxiety, depression, and auditory hallucinations, sometimes commanding in nature. He reports taking in impulsive overdose of 30-500 mg tylenol in a suicide attempt. At the time of admission, pt regrets making attempt and is happy that it was not successful. He presents with a broad affect, pleasant and cooperative throughout admission assessment. Denies current auditory/visual hallucinations. Denies SI/HI or self-harming thoughts. He does admit to recently engaging in self-harm behaviors by superficially cutting. Denies sleep disturbances. Appetite is good. Pt does have outpatient providers. Nurse to nurse done prior to admission. Medications verified via [facility] d/c orders. Araseli Avila NP notified of admission and orders obtained. Pt placed on 15 minute safety checks. Contracts for unit safety and agrees to seek out staff if necessary.
[2020-10-21] MEDS: DULoxetine HCl 30 MG CAPSULE.DR 90 MG PO (08:28)
[2020-10-21 09:20] VITALS: BP 119/76; PULSE 91; TEMP 36.4
[2020-10-21 12:00] VITALS: BP 129/65; PULSE 102; TEMP 36.7
[2020-10-21 16:00] VITALS: BP 118/58; PULSE 103; RESP 16; TEMP 36.6; O2SAT 96
[2020-10-21 21:18] VITALS: BP 119/71; PULSE 100; RESP 16; TEMP 36.7; O2SAT 96
[2020-10-21] MEDS: OLANZapine 7.5 MG TABLET 15 MG PO (21:28)
[2020-10-21] MEDS: traZODone HCL 50 MG TABLET PO (21:38)
[2020-10-21 22:29] VITALS: O2SAT 96
--- NOTE | 2020-10-21 23:27 | HO.PSYCHPN ---
Subjective Subjective Date of Service: 10/21/20 Reason For Visit: APAP overdose Subjective Notes: Whitt Order and Conditional Voluntary Guardianship: No Medication Compliance: Yes Attending Groups: No Review of Systems S/P TYLENOL od Mental Status Exam Mental Status Exam Narrative: A&O. In hospital attire, good hygiene, overweight withdrawn . No Tics or Tremors. No abnormal involuntary movements. flat not engaged. Non-pressured speech, spontaneous with regular rate and rhythm, normal volume and prosody. No prolonged speech latency or dysarthria. Mood is ?groggy,? affect is blunted. Currently denies SI/SIB/HI upon inquiry. Endorses AH and tactile hallucinations, denies VH or delusional thought content. Thoughts are coherent, organized. No known cognitive or memory impairment. Insight/ Judgment fair and adequate. Diagnostics Vital Signs (24Hr): Vital Signs - 24 hr 10/21/20 09:20 10/21/20 12:00 10/21/20 16:00 Temperature 97.6 F 98.0 F 97.9 F Pulse Rate 91 102 H 103 H Respiratory Rate 16 Blood Pressure 119/76 129/65 118/58 L Pulse Oximetry 96 10/21/20 21:18 10/21/20 22:29 Temperature 98.1 F Pulse Rate 100 Respiratory Rate 16 Blood Pressure 119/71 Pulse Oximetry 96 96 Medications Medications Current Medications Generic Name Dose Route Start Last Admin Trade Name Freq PRN Reason Stop Dose Admin Acetaminophen 650 mg 10/20/20 21:52 Acetaminophen 325 Mg Tablet PO Q6H PRN Headache/Pain Mild Scale (1-3) Al Hydroxide/Mg Hydroxide 30 ml 10/20/20 21:52 Magnesium Hydrox/Alum Hydrox 30 Ml Oral.Susp PO Q6H PRN Heartburn/Nausea Al Hydroxide/Mg Hydroxide 30 ml 10/20/20 22:44 Magnesium Hydrox/Alum Hydrox 30 Ml Oral.Susp PO Q4H PRN Heartburn Al Hydroxide/Mg Hydroxide 30 ml 10/21/20 09:19 Magnesium Hydrox/Alum Hydrox 30 Ml Oral.Susp PO Q4H PRN Heartburn/Nausea Duloxetine HCl 90 mg 10/21/20 09:00 10/21/20 08:28 Duloxetine Hcl 30 Mg Capsule.Dr PO 90 mg DAILY ARPIT Administration Hydroxyzine HCl 25 mg 10/20/20 21:52 Hydroxyzine Hcl 25 Mg Tablet PO Q6H PRN Anxiety Magnesium Hydroxide 30 ml 10/20/20 21:52 Milk Of Magnesia 30 Ml Oral.Susp PO DAILY PRN Constipation Non-Formulary Medication 100 mg 10/22/20 22:40 Testosterone Cypionate SUBCUT [facility]ILO ARPIT Olanzapine 15 mg 10/20/20 22:45 10/21/20 21:28 Olanzapine 7.5 Mg Tablet PO 15 mg BEDTIME ARPIT Administration Trazodone HCl 50 mg 10/20/20 21:52 10/21/20 21:38 Trazodone Hcl 50 Mg Tablet PO 50 mg BEDTIME PRN Administration Insomnia Allergies Allergies Allergy/AdvReac Type Severity Reaction Status Date / Time No Known Allergies Allergy Unverified 02/29/20 16:04 Albuterol Allergy Unknown Uncoded 02/29/20 16:04 Flovent HFA Allergy Unknown Uncoded 02/29/20 16:04 Assessment & Plan Assessment & Plan (1) ADHD: Status: Acute Code(s): F90.9 - Attention-deficit hyperactivity disorder, unspecified type (2) Suicide attempt by acetaminophen overdose: Status: Acute Code(s): T39.1X2A - Poisoning by 4-Aminophenol derivatives, intentional self-harm, initial encounter (3) Schizoaffective disorder, depressive type: Status: Acute Code(s): F25.1 - Schizoaffective disorder, depressive type (4) PTSD (post-traumatic stress disorder): Status: Acute Code(s): F43.10 - Post-traumatic stress disorder, unspecified (5) Anxiety disorder, unspecified: Status: Acute Code(s): F41.9 - Anxiety disorder, unspecified Assessment and Plan: 19 y.o. Transgender male who carries a dx of ADHD, PTSD, depression, and ANI. Preferred pronouns are he/him. He presented to [facility] [place] [facility] via ambulance on 10/19/20 after intentionally ingesting 30 tabs of 500 mg APAP and 5 tabs of 200 mg Ibuprofen at 02:30 in a suicide attempt. He is currently presenting with sx of command AH, tactile hallucinations, depressed mood, and inattention. He reports some benefit on cymbalta and asks to trial an increased dose due to positive benefit and tolerability. He says olanzapine has helped with sleep and anxiety but not AH, would also like to trial an increased dose. He is amenable to trialing off adderall XR during this inpatient stay, although he says he has been off it before and denies that it exacerbates AH. He denies benefit on strattera, will discontinue. He currently denies SI/SIB/HI and says he feels safe. He would like help with managing the voices, wants them to be quieter. Plan: 1. increase cymbalta to 90 mg to target sx of depression, PTSD. 2. Increase olanzapine to 15 mg QHS to target AH, reviewed risks and benefits including wt gain 3. Hold adderall XR 15 mg QAM due to possible activation of AH 4. discontinue strattera 60 mg due to lack of benefit 5. consider neuro consult, head CT as AH are new problem, r/o neulogic pathology 6. Monitor response to medications. Monitor for safety in the milieu. Discharge on stabilization. Patient seen. Chart reviewed. Discussed with team. Continue present tx plan encourage OOB Greater than 50% of the session was spent on counseling and/or coordination of care Reason for contiued inpatient stay Substantial Risk for: harm to self and rapid decompensation
[2020-10-22 08:11] VITALS: BP 115/65; PULSE 92; TEMP 36.5; O2SAT 97
[2020-10-22 08:13] VITALS: BP 115/65; PULSE 91; TEMP 36.5; O2SAT 97
[2020-10-22] MEDS: DULoxetine HCl 30 MG CAPSULE.DR 90 MG PO (08:16)
[2020-10-22 12:00] VITALS: BP 115/64; PULSE 110; O2SAT 98
[2020-10-22 16:00] VITALS: BP 124/78; PULSE 96; RESP 16; TEMP 36.4; O2SAT 99
[2020-10-22] MEDS: OLANZapine 7.5 MG TABLET 15 MG PO (22:10)
[2020-10-22 22:12] VITALS: BP 134/76; PULSE 105; TEMP 36.4; O2SAT 95
--- NOTE | 2020-10-22 23:06 | P.PNPSI_ITS ---
Subjective Subjective Date of Service: 10/22/20 Reason For Visit: APAP overdose Subjective Notes: Conditional Voluntary Healthcare Proxy: No Guardianship: No Interim History: Patient has been withdrawn and lethargic not currently on stimulants they have been held secondary to psychosis patient describes hallucinations encouraging him to kill himself. Has been having psychotic symptoms about 1 year in addition to stimulants significant use of THC also a risk factor has been on olanzapine may be causing lethargy continues on Cymbalta Medication Compliance: Yes Mental Status Exam Mental Status Exam Narrative: A&O. In hospital attire, good hygiene, overweight withdrawn . No Tics or Tremors. No abnormal involuntary movements. flat not engaged. Non-pressured speech, spontaneous with regular rate and rhythm, normal volume and prosody. No prolonged speech latency or dysarthria. Mood is ?groggy,? affect is blunted. Currently denies SI/SIB/HI upon inquiry. Endorses AH and tactile hallucinations, denies VH or delusional thought content. Thoughts are coherent, organized. No known cognitive or memory impairment. Insight/ Judgment fair and adequate. Some degree of auditory hallucinations at times telling him to harm self patient states he feels safe Diagnostics Vital Signs (24Hr): Vital Signs - 24 hr 10/22/20 08:11 10/22/20 08:13 10/22/20 12:00 Temperature 97.7 F 97.7 F Pulse Rate 92 91 110 H Respiratory Rate Blood Pressure 115/65 115/65 115/64 Pulse Oximetry 97 97 98 10/22/20 16:00 10/22/20 22:12 Temperature 97.5 F 97.5 F Pulse Rate 96 105 H Respiratory Rate 16 Blood Pressure 124/78 134/76 Pulse Oximetry 99 95 Medications Medications Current Medications Generic Name Dose Route Start Last Admin Trade Name Freq PRN Reason Stop Dose Admin Acetaminophen 650 mg 10/20/20 21:52 Acetaminophen 325 Mg Tablet PO Q6H PRN Headache/Pain Mild Scale (1-3) Al Hydroxide/Mg Hydroxide 30 ml 10/20/20 21:52 Magnesium Hydrox/Alum Hydrox 30 Ml Oral.Susp PO Q6H PRN Heartburn/Nausea Al Hydroxide/Mg Hydroxide 30 ml 10/20/20 22:44 Magnesium Hydrox/Alum Hydrox 30 Ml Oral.Susp PO Q4H PRN Heartburn Al Hydroxide/Mg Hydroxide 30 ml 10/21/20 09:19 Magnesium Hydrox/Alum Hydrox 30 Ml Oral.Susp PO Q4H PRN Heartburn/Nausea Duloxetine HCl 90 mg 10/21/20 09:00 10/22/20 08:16 Duloxetine Hcl 30 Mg Capsule.Dr PO 90 mg DAILY ARPIT Administration Hydroxyzine HCl 25 mg 10/20/20 21:52 Hydroxyzine Hcl 25 Mg Tablet PO Q6H PRN Anxiety Magnesium Hydroxide 30 ml 10/20/20 21:52 Milk Of Magnesia 30 Ml Oral.Susp PO DAILY PRN Constipation Non-Formulary Medication 100 mg 10/22/20 22:40 Testosterone Cypionate SUBCUT [facility]IL[facility]PIT Olanzapine 15 mg 10/20/20 22:45 10/22/20 22:10 Olanzapine 7.5 Mg Tablet PO 15 mg BEDTIME ARPIT Administration Trazodone HCl 50 mg 10/20/20 21:52 10/21/20 21:38 Trazodone Hcl 50 Mg Tablet PO 50 mg BEDTIME PRN Administration Insomnia Allergies Allergies Allergy/AdvReac Type Severity Reaction Status Date / Time No Known Allergies Allergy Unverified 02/29/20 16:04 Albuterol Allergy Unknown Uncoded 02/29/20 16:04 Flovent HFA Allergy Unknown Uncoded 02/29/20 16:04 Assessment & Plan Assessment & Plan (1) ADHD: Status: Acute Code(s): F90.9 - Attention-deficit hyperactivity disorder, unspecified type (2) Suicide attempt by acetaminophen overdose: Status: Acute Code(s): T39.1X2A - Poisoning by 4-Aminophenol derivatives, intentional self-harm, initial encounter (3) Schizoaffective disorder, depressive type: Status: Acute Code(s): F25.1 - Schizoaffective disorder, depressive type (4) PTSD (post-traumatic stress disorder): Status: Acute Code(s): F43.10 - Post-traumatic stress disorder, unspecified (5) Anxiety disorder, unspecified: Status: Acute Code(s): F41.9 - Anxiety disorder, unspecified Assessment and Plan: 19 y.o. Transgender male who carries a dx of ADHD, PTSD, depression, and ANI. Preferred pronouns are he/him. He [place] [facility] [place] [facility] [place] on 10/19/20 after intentionally ingesting 30 tabs of 500 mg APAP and 5 tabs of 200 mg Ibuprofen at 02:30 in a suicide attempt. He is currently presenting with sx of command AH, tactile hallucinations, depressed mood, and inattention. He reports some benefit on cymbalta and asks to trial an increased dose due to positive benefit and tolerability. He says olanzapine has helped with sleep and anxiety but not AH, would also like to trial an increased dose. He is amenable to trialing off adderall XR during this inpatient stay, although he says he has been off it before and denies that it exacerbates AH. He denies benefit on strattera, will discontinue. He currently denies SI/SIB/HI and says he feels safe. He would like help with managing the voices, wants them to be quieter. Plan: 1. increase cymbalta to 90 mg to target sx of depression, PTSD. 2. Increase olanzapine to 15 mg QHS to target AH, reviewed risks and benefits including wt gain 3. Hold adderall XR 15 mg QAM due to possible activation of AH 4. discontinue strattera 60 mg due to lack of benefit Agree with above continue olanzapine may be causing sedation Greater than 50% of the session was spent on counseling and/or coordination of care Informed Consent: understands Reason for contiued inpatient stay Substantial Risk for: harm to self
[2020-10-23 08:00] VITALS: BP 128/72; PULSE 75; TEMP 36.2; O2SAT 98
[2020-10-23] MEDS: DULoxetine HCl 30 MG CAPSULE.DR 90 MG PO (08:26)
[2020-10-23 08:32] VITALS: BP 128/72; PULSE 75; TEMP 36.2; O2SAT 98
[2020-10-23 12:00] VITALS: BP 138/73; PULSE 113; O2SAT 96
--- NOTE | 2020-10-23 15:42 | HO.PSYCHPN ---
Subjective Subjective Date of Service: 10/23/20 Reason For Visit: APAP overdose Interim History: pt requesting discharge today, reports has had some insights since admission, such as that his foster family cares about him and wants him to come home. denies SI since the index event. states he does not have SI unless hearing the CAH. AH continue, but minute and as chatter. describes his support structure of therapist and prescriber as well as foster family. states he started cutting abit a week prior to the overdose attempt, first time cutting in his life. unable to identify any stressors other than registering for college [employer] year, however. per staff, s/p tylenol overdose. guarded. dep 03/05 and anx 0/. isolative, withdrawn. attending art group. Mental Status Exam Mental Status Exam Narrative: A&O. In hospital attire, good hygiene, overweight withdrawn . No Tics or Tremors. No abnormal involuntary movements. Non-pressured speech, spontaneous with regular rate and rhythm, normal volume and prosody. No prolonged speech latency or dysarthria. affect is flexible. Currently denies SI/SIB/HI upon inquiry. Endorses AH. Thoughts are coherent, organized. No known cognitive or memory impairment. Insight/ Judgment fair and adequate. Diagnostics Vital Signs (24Hr): Vital Signs - 24 hr 10/22/20 16:00 10/22/20 22:12 10/23/20 08:00 Temperature 97.5 F 97.5 F 97.2 F Pulse Rate 96 105 H 75 Respiratory Rate 16 Blood Pressure 124/78 134/76 128/72 Pulse Oximetry 99 95 98 10/23/20 08:32 10/23/20 12:00 Temperature 97.2 F Pulse Rate 75 113 H Respiratory Rate Blood Pressure 128/72 138/73 Pulse Oximetry 98 96 Medications Medications Current Medications Generic Name Dose Route Start Last Admin Trade Name Freq PRN Reason Stop Dose Admin Acetaminophen 650 mg 10/20/20 21:52 Acetaminophen 325 Mg Tablet PO Q6H PRN Headache/Pain Mild Scale (1-3) Al Hydroxide/Mg Hydroxide 30 ml 10/20/20 21:52 Magnesium Hydrox/Alum Hydrox 30 Ml Oral.Susp PO Q6H PRN Heartburn/Nausea Al Hydroxide/Mg Hydroxide 30 ml 10/20/20 22:44 Magnesium Hydrox/Alum Hydrox 30 Ml Oral.Susp PO Q4H PRN Heartburn Al Hydroxide/Mg Hydroxide 30 ml 10/21/20 09:19 Magnesium Hydrox/Alum Hydrox 30 Ml Oral.Susp PO Q4H PRN Heartburn/Nausea Duloxetine HCl 90 mg 10/21/20 09:00 10/23/20 08:26 Duloxetine Hcl 30 Mg Capsule.Dr PO 90 mg DAILY ARPIT Administration Hydroxyzine HCl 25 mg 10/20/20 21:52 Hydroxyzine Hcl 25 Mg Tablet PO Q6H PRN Anxiety Magnesium Hydroxide 30 ml 10/20/20 21:52 Milk Of Magnesia 30 Ml Oral.Susp PO DAILY PRN Constipation Non-Formulary Medication 100 mg 10/22/20 22:40 Testosterone Cypionate SUBCUT [facility]PIT Olanzapine 15 mg 10/20/20 22:45 10/22/20 22:10 Olanzapine 7.5 Mg Tablet PO 15 mg BEDTIME ARPIT Administration Trazodone HCl 50 mg 10/20/20 21:52 10/21/20 21:38 Trazodone Hcl 50 Mg Tablet PO 50 mg BEDTIME PRN Administration Insomnia Allergies Allergies Allergy/AdvReac Type Severity Reaction Status Date / Time No Known Allergies Allergy Unverified 02/29/20 16:04 Albuterol Allergy Unknown Uncoded 02/29/20 16:04 Flovent HFA Allergy Unknown Uncoded 02/29/20 16:04 Assessment & Plan Assessment & Plan (1) ADHD: Status: Acute Code(s): F90.9 - Attention-deficit hyperactivity disorder, unspecified type (2) Suicide attempt by acetaminophen overdose: Status: Acute Code(s): T39.1X2A - Poisoning by 4-Aminophenol derivatives, intentional self-harm, initial encounter (3) Schizoaffective disorder, depressive type: Status: Acute Code(s): F25.1 - Schizoaffective disorder, depressive type (4) PTSD (post-traumatic stress disorder): Status: Acute Code(s): F43.10 - Post-traumatic stress disorder, unspecified (5) Anxiety disorder, unspecified: Status: Acute Code(s): F41.9 - Anxiety disorder, unspecified Assessment and Plan: 19 y.o. Transgender male who carries a dx of ADHD, PTSD, depression, and ANI. Preferred pronouns are he/him. [place] [facility] [place] on 10/19/20 after intentionally ingesting 30 tabs of 500 mg APAP and 5 tabs of 200 mg Ibuprofen at 02:30 in a suicide attempt. He is currently presenting with sx of command AH, tactile hallucinations, depressed mood, and inattention. He reports some benefit on cymbalta and asks to trial an increased dose due to positive benefit and tolerability. He says olanzapine has helped with sleep and anxiety but not AH, would also like to trial an increased dose. He is amenable to trialing off adderall XR during this inpatient stay, although he says he has been off it before and denies that it exacerbates AH. He denies benefit on strattera, will discontinue. He currently denies SI/SIB/HI and says he feels safe. He would like help with managing the voices, wants them to be quieter. Plan: 1. increased cymbalta to 90 mg to target sx of depression, PTSD. 2. Increased olanzapine to 15 mg QHS to target AH, reviewed risks and benefits including wt gain 3. Hold adderall XR 15 mg QAM due to possible activation of AH 4. discontinued strattera 60 mg due to lack of benefit Greater than 50% of the session was spent on counseling and/or coordination of care Reason for contiued inpatient stay Substantial Risk for: harm to self, inability to function and rapid decompensation
[2020-10-23 16:00] VITALS: BP 115/65; PULSE 94; RESP 20; TEMP 36.8; O2SAT 97
[2020-10-23 22:09] VITALS: BP 132/68; PULSE 81; TEMP 36.5; O2SAT 97
[2020-10-23] MEDS: OLANZapine 7.5 MG TABLET 15 MG PO (22:10)
[2020-10-24 08:46] VITALS: BP 135/76; PULSE 89; RESP 16; TEMP 36.6; O2SAT 98
[2020-10-24] MEDS: DULoxetine HCl 30 MG CAPSULE.DR 90 MG PO (08:47)
[2020-10-24 10:48] VITALS: O2SAT 98
--- NOTE | 2020-10-24 13:33 | P.PNPSI_ITS ---
Subjective Subjective Date of Service: 10/24/20 Reason For Visit: APAP overdose Interim History: pt has no questions or concerns. roused from sleep late morning. aware SW is contacting collaterals. denies any safety cocnerns, reports mood as good. per SW, both therapist and foster mother have serious concerns. therapist recommending a PHP. no discharge today. per staff, no notable events or behaviors. Mental Status Exam Mental Status Exam Narrative: A&O. In hospital attire, good hygiene, overweight withdrawn . No Tics or Tremors. No abnormal involuntary movements. Non-pressured speech, spontaneous with regular rate and rhythm, normal volume and prosody. No prolonged speech latency or dysarthria. affect is flexible. mood good. Currently denies SI/SIBI/HI/AVH. Thoughts are coherent, organized. No known cognitive or memory impairment. Insight/ Judgment fair and adequate. Diagnostics Vital Signs (24Hr): Vital Signs - 24 hr 10/23/20 16:00 10/23/20 22:09 10/24/20 08:46 Temperature 98.3 F 97.7 F 97.9 F Pulse Rate 94 81 89 Respiratory Rate 20 16 Blood Pressure 115/65 132/68 135/76 Pulse Oximetry 97 97 98 10/24/20 10:48 Temperature Pulse Rate Respiratory Rate Blood Pressure Pulse Oximetry 98 Medications Medications Current Medications Generic Name Dose Route Start Last Admin Trade Name Freq PRN Reason Stop Dose Admin Acetaminophen 650 mg 10/20/20 21:52 Acetaminophen 325 Mg Tablet PO Q6H PRN Headache/Pain Mild Scale (1-3) Al Hydroxide/Mg Hydroxide 30 ml 10/20/20 21:52 Magnesium Hydrox/Alum Hydrox 30 Ml Oral.Susp PO Q6H PRN Heartburn/Nausea Al Hydroxide/Mg Hydroxide 30 ml 10/20/20 22:44 Magnesium Hydrox/Alum Hydrox 30 Ml Oral.Susp PO Q4H PRN Heartburn Al Hydroxide/Mg Hydroxide 30 ml 10/21/20 09:19 Magnesium Hydrox/Alum Hydrox 30 Ml Oral.Susp PO Q4H PRN Heartburn/Nausea Duloxetine HCl 90 mg 10/21/20 09:00 10/24/20 08:47 Duloxetine Hcl 30 Mg Capsule.Dr PO 90 mg DAILY ARPIT Administration Hydroxyzine HCl 25 mg 10/20/20 21:52 Hydroxyzine Hcl 25 Mg Tablet PO Q6H PRN Anxiety Magnesium Hydroxide 30 ml 10/20/20 21:52 Milk Of Magnesia 30 Ml Oral.Susp PO DAILY PRN Constipation Non-Formulary Medication 100 mg 10/22/20 22:40 Testosterone Cypionate SUBCUT [facility]PIT Olanzapine 15 mg 10/20/20 22:45 10/23/20 22:10 Olanzapine 7.5 Mg Tablet PO 15 mg BEDTIME ARPIT Administration Trazodone HCl 50 mg 10/20/20 21:52 10/21/20 21:38 Trazodone Hcl 50 Mg Tablet PO 50 mg BEDTIME PRN Administration Insomnia Allergies Allergies Allergy/AdvReac Type Severity Reaction Status Date / Time No Known Allergies Allergy Unverified 02/29/20 16:04 Albuterol Allergy Unknown Uncoded 02/29/20 16:04 Flovent HFA Allergy Unknown Uncoded 02/29/20 16:04 Assessment & Plan Assessment & Plan (1) ADHD: Status: Acute Code(s): F90.9 - Attention-deficit hyperactivity disorder, unspecified type (2) Suicide attempt by acetaminophen overdose: Status: Acute Code(s): T39.1X2A - Poisoning by 4-Aminophenol derivatives, intentional self-harm, initial encounter (3) Schizoaffective disorder, depressive type: Status: Acute Code(s): F25.1 - Schizoaffective disorder, depressive type (4) PTSD (post-traumatic stress disorder): Status: Acute Code(s): F43.10 - Post-traumatic stress disorder, unspecified (5) Anxiety disorder, unspecified: Status: Acute Code(s): F41.9 - Anxiety disorder, unspecified Assessment and Plan: 19 y.o. Transgender male who carries a dx of ADHD, PTSD, depression, and ANI. Preferred pronouns are he/him. He presented to [facility] [place] [facility] via ambulance on 10/19/20 after intentionally ingesting 30 tabs of 500 mg APAP and 5 tabs of 200 mg Ibupro fen at 02:30 in a suicide attempt. He is currently presenting with sx of command AH, tactile hallucinations, depressed mood, and inattention. He reports some benefit on cymbalta and asks to trial an increased dose due to positive benefit and tolerability. He says olanzapine has helped with sleep and anxiety but not AH, would also like to trial an increased dose. He is amenable to trialing off adderall XR during this inpatient stay, although he says he has been off it before and denies that it exacerbates AH. He denies benefit on strattera, will discontinue. He currently denies SI/SIB/HI and says he feels safe. He would like help with managing the voices, wants them to be quieter. Plan: 1. increased cymbalta to 90 mg to target sx of depression, PTSD. 2. Increased olanzapine to 15 mg QHS to target AH, reviewed risks and benefits including wt gain 3. Holding adderall XR 15 mg QAM due to possible activation of AH 4. discontinued strattera 60 mg due to lack of benefit 5. dispo pending adequately safe plan. Greater than 50% of the session was spent on counseling and/or coordination of care Reason for contiued inpatient stay Substantial Risk for: harm to self, inability to function and rapid decompensation
[2020-10-24 20:25] VITALS: BP 131/77; PULSE 71; RESP 18; TEMP 525.7; TEMP 978.3; O2SAT 98
[2020-10-24] MEDS: OLANZapine 7.5 MG TABLET 15 MG PO (20:27)
[2020-10-25 06:00] VITALS: BP 115/70; PULSE 97; RESP 16; TEMP 36.1; O2SAT 97
[2020-10-25] MEDS: DULoxetine HCl 30 MG CAPSULE.DR 90 MG PO (08:54)
[2020-10-25 12:05] VITALS: O2SAT 99
--- NOTE | 2020-10-25 12:45 | P.PNPSI_ITS ---
Subjective Subjective Date of Service: 10/25/20 Reason For Visit: APAP overdose Interim History: pt denies any concerns at the moment. appears quite ambivalent about PHP, but willing to do it to return to outpt care. attempted to engage pt in considering how he might be helped by such a program, especially in learning coping skills. denies any CAH since last . states he likes his outpt therapist and would like to return there. awarehis 3-day matures tomorrow and is intent on leaving. planning for discharge tomorrow. Mental Status Exam Mental Status Exam Narrative: A&O. In street clothes, good hygiene. No Tics or Tremors. No abnormal involuntary movements. Non-pressured speech, spontaneous with regular rate and rhythm, normal volume and prosody. No prolonged speech latency or dysarthria. affect is flexible. mood good. Currently denies SI/SIBI/HI/AVH. Thoughts are coherent, organized. No known cognitive or memory impairment. Insight/ Judgment fair and adequate. Diagnostics Vital Signs (24Hr): Vital Signs - 24 hr 10/24/20 20:25 10/25/20 06:00 10/25/20 12:05 Temperature 978.3 F H 97.0 F Pulse Rate 71 97 Respiratory Rate 18 16 Blood Pressure 131/77 115/70 Pulse Oximetry 98 97 99 Medications Medications Current Medications Generic Name Dose Route Start Last Admin Trade Name Freq PRN Reason Stop Dose Admin Acetaminophen 650 mg 10/20/20 21:52 Acetaminophen 325 Mg Tablet PO Q6H PRN Headache/Pain Mild Scale (1-3) Al Hydroxide/Mg Hydroxide 30 ml 10/20/20 21:52 Magnesium Hydrox/Alum Hydrox 30 Ml Oral.Susp PO Q6H PRN Heartburn/Nausea Al Hydroxide/Mg Hydroxide 30 ml 10/20/20 22:44 Magnesium Hydrox/Alum Hydrox 30 Ml Oral.Susp PO Q4H PRN Heartburn Al Hydroxide/Mg Hydroxide 30 ml 10/21/20 09:19 Magnesium Hydrox/Alum Hydrox 30 Ml Oral.Susp PO Q4H PRN Heartburn/Nausea Duloxetine HCl 90 mg 10/21/20 09:00 10/25/20 08:54 Duloxetine Hcl 30 Mg Capsule. PO 90 mg DAILY ARPIT Administration Hydroxyzine HCl 25 mg 10/20/20 21:52 Hydroxyzine Hcl 25 Mg Tablet PO Q6H PRN Anxiety Magnesium Hydroxide 30 ml 10/20/20 21:52 Milk Of Magnesia 30 Ml Oral.Susp PO DAILY PRN Constipation Non-Formulary Medication 100 mg 10/22/20 22:40 Testosterone Cypionate SUBCUT CAMILO ARPIT Olanzapine 15 mg 10/20/20 22:45 10/24/20 20:27 Olanzapine 7.5 Mg Tablet PO 15 mg BEDTIME ARPIT Administration Trazodone HCl 50 mg 10/20/20 21:52 10/21/20 21:38 Trazodone Hcl 50 Mg Tablet PO 50 mg BEDTIME PRN Administration Insomnia Allergies Allergies Allergy/AdvReac Type Severity Reaction Status Date / Time No Known Allergies Allergy Unverified 02/29/20 16:04 Albuterol Allergy Unknown Uncoded 02/29/20 16:04 Flovent HFA Allergy Unknown Uncoded 02/29/20 16:04 Assessment & Plan Assessment & Plan (1) ADHD: Status: Acute Code(s): F90.9 - Attention-deficit hyperactivity disorder, unspecified type (2) Suicide attempt by acetaminophen overdose: Status: Acute Code(s): T39.1X2A - Poisoning by 4-Aminophenol derivatives, intentional self-harm, initial encounter (3) Schizoaffective disorder, depressive type: Status: Acute Code(s): F25.1 - Schizoaffective disorder, depressive type (4) PTSD (post-traumatic stress disorder): Status: Acute Code(s): F43.10 - Post-traumatic stress disorder, unspecified (5) Anxiety disorder, unspecified: Status: Acute Code(s): F41.9 - Anxiety disorder, unspecified Assessment and Plan: 19 y.o. Transgender male who carries a dx of ADHD, PTSD, depression, and ANI. Preferred pronouns are he/him. He presented to [facility] ED via ambulance on 10/19/20 after intentionally ingesting 30 tabs of 500 mg APAP and 5 tabs of 200 mg Ibuprofen at 02:30 in a suicide attempt. He is currently presenting with sx of command AH, tactile hallucinations, depressed mood, and inattention. He reports some benefit on cymbalta and asks to trial an increased dose due to positive benefit and tolerability. He says olanzapine has helped with sleep and anxiety but not AH, would also like to trial an increased dose. He is amenable to trialing off adderall XR during this inpatient stay, although he says he has been off it before and denies that it exacerbates AH. He denies benefit on strattera, will discontinue. He currently denies SI/SIB/HI and says he feels safe. He would like help with managing the voices, wants them to be quieter. Plan: 1. increased cymbalta to 90 mg to target sx of depression, PTSD. 2. Increased olanzapine to 15 mg QHS to target AH, reviewed risks and benefits including wt gain 3. Holding adderall XR 15 mg QAM due to possible activation of AH 4. discontinued strattera 60 mg due to lack of benefit 5. discharge tomorrow as 3-day notice matures and pt is not committable at present. Greater than 50% of the session was spent on counseling and/or coordination of care Reason for contiued inpatient stay Substantial Risk for: rapid decompensation
[2020-10-25 19:53] VITALS: BP 143/67; PULSE 86; RESP 18; TEMP 36.4; O2SAT 98
[2020-10-25] MEDS: OLANZapine 7.5 MG TABLET 15 MG PO (20:08)
[2020-10-26 06:00] VITALS: BP 111/67; PULSE 72; O2SAT 98
[2020-10-26] MEDS: DULoxetine HCl 30 MG CAPSULE.DR 90 MG PO (08:09)
--- NOTE | 2020-10-26 08:59 | P.DS_ITS ---
DS: Providers Provider Date of admission: 10/20/20 21:52 Primary care physician: Unknown Physician DS: Diagnosis Discharge Diagnosis (1) ADHD: Status: Acute (2) Suicide attempt by acetaminophen overdose: Status: Acute (3) Schizoaffective disorder, depressive type: Status: Acute (4) PTSD (post-traumatic stress disorder): Status: Acute (5) Anxiety disorder, unspecified: Status: Acute DS: Medications Discharge Medications Home Medications: Home Medications Medication Instructions Recorded Confirmed dextroamphetamine-amphetamine ER 15 mg PO QAM 10/19/20 10/20/20 15 mg 24hr capsule,extend release (Adderall XR) testosterone cypionate 200 mg/mL 100 mg SUBCUT CAMILO 10/19/20 10/20/20 intramuscular oil Previous Rx's Medication Instructions Recorded duloxetine 30 mg capsule,delayed 90 mg PO DAILY 30 Days #90 cap 10/26/20 release olanzapine 7.5 mg tablet 15 mg PO BEDTIME 30 Days #60 tab 10/26/20 Data Data Completed and Pending Completed studies during hospitalization [Text1]: 10/26/20 10/26/20 08:43 08:43 Estimat Average Glucose Pending Hemoglobin A1c % Pending Triglycerides Pending Cholesterol Pending LDL Cholesterol, Calc Pending HDL Cholesterol Pending DS: Summary Time Spent with Patient Time attestation: Total time spent providing and/or coordinating discharge services: Discharge Plan Discharge Patient Disposition: Home, Self-Care Discharge Diagnosis: PTSD, Chronic Referrals: Mary Puentes (therapist) [Other] (Reach out to schedule follow-up after comple tion of [facility], or work with [facility] clinicians to schedule follow-up) Derrick Rogers (psychiatrist) [Other] - 11/09/20 8:30 am [facility] ([facility]) [Other] - 10/27/20 9:00 am (You will receive a phone call this evening to confirm your intake appointment tomorrow. You will then get an email with paperwork that needs to be completed and e-signed by this evening. Once your paperwork is submitted, you will be assigned a clinician who will send you the Zoom link via email for your intake tomorrow. ) Physician,Unknown [Primary Care Provider] - 1 Week Discharge Medications: New olanzapine 7.5 mg Tablet 15 mg PO BEDTIME 30 Days Qty: 60 RF: 0 duloxetine 30 mg Capsule,Delayed Release(Dr/Ec) 90 mg PO DAILY 30 Days Qty: 90 RF: 0 Continued testosterone cypionate 200 mg/mL oil 100 mg subcut CAMILO RF: 0 Held dextroamphetamine-amphetamine [Adderall XR] 15 mg capsule,extended release 24hr 15 mg PO QAM RF: 0 Hold Instructions: unclear if exacerbates psychotic symptoms. HOLD ind efinitely. Discontinued olanzapine 10 mg tablet 10 mg PO BEDTIME RF: 0 duloxetine 60 mg capsule,delayed release(DR/EC) 60 mg PO QAM RF: 0 Maalox 30 ml PO Q4H PRN (Reason: Heartburn) RF: 0 atomoxetine 25 mg Capsule 50 mg PO QAM RF: 0 Discharge Orders: Discharge Order (Routine); Ordered 10/26/20 Ordered By: Araseli Avila Diet: advance to usual diet Activity on Discharge: As tolerated Stand Alone Forms: Patient Portal Discharge page, Community Support Care Plan Goals: maintain safe and independent living in the outpatient setting Health Concerns: none Plan of Treatment: take medications as prescribed, attend appointments as scheduled Assessment: not at imminent risk of harm to self or others.
[2020-10-26 09:15] LABS: Estimated Average Glucose 103 mg/dL; Hemoglobin A1c % 5.2 %
[2020-10-26 09:16] LABS: Cholesterol 148 mg/dL; HDL Cholesterol 44 mg/dL; LDL Cholesterol Calculated 78 mg/dl; Triglycerides 132 mg/dL
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
== END 2020-10-26 15:18 | disposition home or self-care (01) | DRG 750 ==
PROVIDERS: Admitting Provider Psychiatry & Neurology Psychiatry; Visit Provider Psychiatry & Neurology Psychiatry
DX: F25.1 Schizoaffective disorder, depressive type (principal); R45.851 Suicidal ideations; F90.9 Attention-deficit hyperactivity disorder, unspecified type; F43.10 Post-traumatic stress disorder, unspecified; Z91.5 Personal history of self-harm; F41.9 Anxiety disorder, unspecified; F64.0 Transsexualism; Z79.899 Other long term (current) drug therapy
CPT/HCPCS: 36415; 80061; 83036

== ENCOUNTER 2021-04-07 18:27 | Inpatient (IN) | payer OTHER, SELFPAY ==
[2021-04-07 18:41] VITALS: BP 138/63; BP 162/82; PULSE 14; PULSE 95; RESP 18; TEMP 36.9; O2SAT 95; BMI 30.4
--- NOTE | 2021-04-07 18:51 | ECG_ITS ---
Test Reason : OD Blood Pressure : / mmHG Vent. Rate : 075 BPM Atrial Rate : 075 BPM P-R Int : 252 ms QRS Dur : 090 ms QT Int : 368 ms P-R-T Axes : 071 067 043 degrees QTc Int : 410 ms Sinus rhythm with marked sinus arrhythmia with 1st degree A-V block Possible Left atrial enlargement Borderline ECG When compared with ECG of 19-OCT-2020 13:03, ND interval has increased Referred By: Ayaz Cabezas Electronically Signed By:Salomon Holder
[2021-04-07] MEDS: 0.9 % Sodium Chloride 1,000 ML 999 ML IV (19:05)
--- NOTE | 2021-04-07 19:06 | PC.NURSE ---
patient a&ox3, denies si/hi, monitoring and evaluation advisor nsr, vss ,iv inserted labs drawn, ivf running per order, ekg being performed by tech, will continue to monitor
[2021-04-07 19:07] LABS: MANUAL DIFF FLAG NO
[2021-04-07 19:09] LABS: Basophils Absolute Auto 0.1 X10*3/uL (0.0-0.2); Basophils Percent Auto 0.6 % (0-2); Eosinophils Absolute Auto 0.1 X10*3/uL (0.0-0.4); Eosinophils Percent Auto 0.7 % (0-4); Hematocrit 39.3 % (42.0-52.0); Hemoglobin 13.1 g/dl (14.0-18.0); Imm Gran Abs Auto 0.03 X10*3/uL (0.00-0.03); Imm Gran Pct Auto 0.2 % (0.0-0.4); Lymphocytes Absolute Auto 2.4 X10*3/uL (1.2-4.9); Lymphocytes Percent Auto 19.6 % (20-40); Mean Corpuscular HGB Conc 33.3 g/dl (31.0-36.0); Mean Corpuscular Hemoglobin 29.6 pg (27.0-33.0); Mean Corpuscular Volume 88.9 fL (80.0-98.0); Mean Platelet Volume 10.2 fL (9.4-12.4); Monocytes Absolute Auto 0.9 X10*3/uL (0.1-1.2); Monocytes Percent Auto 7.2 % (2-11); Neutrophils Absolute Auto 8.6 x10*3/uL (2.0-8.3); Neutrophils Percent Auto 71.7 % (45-73); Platelet Count 289 X10*3/uL (160-400); Red Blood Count 4.42 X10*6/uL (4.60-5.80); Red Cell Distribution Width 12.7 % (11.0-16.0)
--- NOTE | 2021-04-07 19:15 | ED.OVERDOSE ---
HPI - Overdose General Chief Complaint: Overdose Stated Complaint: SI, OVERDOSE Time Seen by Provider: 04/07/21 18:50 Source: patient and EMS Mode of arrival: EMS Limitations: no limitations History of Present Illness HPI Narrative: 20 years old male history of PTSD and ADHD and history of SI came in for evaluation after ingested handful of extra-strength Tylenol about 20 hours ago. Patient overdosed on Tylenol yesterday after hearing voices encourage him to overdose and hurt himself, patient is to be eating about 30 tablets of extra-strength Tylenol (500 mg each), despite the initial report by Nursing say that the patient denies SI or HI however patient admitted to and SD and hearing voices. Patient told his parents about the overdose today who called the ambulance and transported him to the hospital. Patient been having nausea and mild epigastric pain, he vomited once today. Patient declined any other coingestion or using any other drugs. Related Data Home Medications Medication Instructions Recorded Confirmed duloxetine 30 mg capsule,delayed 3 cap PO QAM 04/07/21 04/07/21 release olanzapine 15 mg tablet 1 tab PO BEDTIME 04/07/21 04/07/21 testosterone cypionate 200 mg/mL 0.5 ml SUBCUT QWEEK 04/07/21 04/07/21 intramuscular oil Allergies Allergy/AdvReac Type Severity Reaction Status Date / Time No Known Allergies Allergy Unverified 02/29/20 16:04 Albuterol Allergy Unknown Uncoded 02/29/20 16:04 Flovent HFA Allergy Unknown Uncoded 02/29/20 16:04 Review of Systems Review of Systems: All other systems are reviewed and are negative Constitutional: Reports as per HPI and Reports no additional constitutional complaints Eyes: Reports as per HPI and Reports no additional eye complaints Reports system reviewed and no additional complaints, except as documented Cardiovascular: Reports as per HPI and Reports no additional cardiovascular complaints Respiratory: Reports as per HPI and Reports no additional respiratory complaints Gastrointestinal: Reports as per HPI and Reports no additional gastrointestinal complaints Genitourinary: Reports no additional female genitourinary complaints Musculoskeletal: Reports no additional musculoskeletal complaints Skin/Breast: Reports system reviewed and no additional complaints, except as docu Psychiatric: Reports no additional psychiatric complaints Endocrine: Reports no additional endocrine complaints Hematologic/Lymphatic: Reports no additional hematologic/lymphatic complaints Allergic/Immunologic: Reports no additional allergic/immunologic complaints Reports system reviewed and no additional complaints, except as documented and Reports Abnormal speech present [facility] Past Medical History Medical History Acetaminophen overdose ADHD Anxiety Anxiety disorder, unspecified Asthma Depression Depression PTSD (post-traumatic stress disorder) Suicide attempt by acetaminophen overdose Social History Social History Household Members: Foster Family Housing: House Do you presently have visiting nurse or other home services: No Alcohol intake: current Alcohol intake frequency: holidays/special occasions only Patient Tobacco Use Status: Never used Tobacco Use of substances other than those prescribed or required for medical reasons: Yes Substance Use Type: Marijuana Substance Use Frequency: Daily Advance Directives: No Advance Directives Information Provided: No service: No Current occupational status: unemployed Sexual orientation: Did not discuss. Physical Exam Vital Signs: Vital Signs: Last Vital Signs Temp 98.2 F 04/08/21 00:19 Pulse 86 04/08/21 00:19 Resp 17 04/08/21 00:19 BP 139/65 04/08/21 00:19 Pulse Ox 97 04/08/21 00:19 BMI result Body Mass Index 30.4 Vital signs have been reviewed as appeared to be correct. Blood pressure normal. Heart rate normal. Respiration rate normal. Temperature normal. Oxygen saturation normal. Appearance: Alert. Oriented X3. No acute distress. Head: Normal external exam. Normocephalic. Atraumatic. No Rowe signs noted. No raccoon eyes noted Eyes: PERRLA. EOMI. Conjunctiva and sclera normal. Eyelids normal. ENT: TM's Normal. Pharynx normal. Uvula midline. Moist mucous membranes. No trismus noted. No drooling noted. No muffled voice noted. Neck: Normal inspection. Neck supple. FROM. No adenopathy. Thyroid Normal. No meningeal signs. No neck mass noted. CVS: Normal heart rate and rhythm. Heart sound normal. No murmurs noted. Pulses normal throughout. Respiratory: No respiratory distress. Painless inspiration. Breath sounds normal. No wheezes/rales/rhonchi noted. Chest nontender. No accessory muscle usage noted or decreased air movement noted. Abdomen: Soft and nontender. Bowel sounds normal in all 4 quadrants. No distention noted. No organomegaly noted. No visible injury noted. Back: No CVA tenderness. Full range of motion noted. Skin: Skin warm and dry. Normal skin color. Normal skin turgor. No rashes/lesions/lacerations noted. Extremities: No lower extremity edema. Extremities exhibit normal range of motion. Extremities nontender. Neuro: Oriented X 3. Cranial nerve exam: II-XII are grossly intact No motor deficit. No sensory deficit. Reflexes normal. Patient Appearance: Appropriate Patient Orientation: Person, Place, Time and Situation Level of Consciousness: Awake, Appropriate and Alert Patient Behavior: Talkative, Cooperative. Mood Description: Depressed. Affect Description: Flat. Patient Cognition Impaired: No Ability to Follow Directions: Good Speech Pattern: Spontaneous Speech Memory Description: Intact Hallucinations: Hear voices telling him to hurt himself Delusions: Believe people on live stream know everything about him. Thought Process: Logical. Thought Content: Unremarkable Depressive Symptoms: Increased anxiety. Judgement: poor Course Course Course Narrative: Assessment and plan. 20-year-old male came in after ingested 30 pills of 500 mg each Tylenol 20 hours before arrival to the ED, patient is complaining of mild nausea, fortunately labs were unremarkable with no indication for Tylenol antidote, patient is medically cleared. Poison control were solar sales consultant and in agreement with the planned, input is appreciated. Await for BHN evaluation. Reevaluation(s) Reevaluation #1: Physician observation started at 1:00 . Patient placed in physician observation because the patient needed more time for BHN evaluation and the need for placement patient's vital sign were stable, patient is alert and oriented , neuro exam unchanged, unremarkable rest of physical exam. Time: 00:58 MDM - Overdose Lab Data Attestation: I reviewed the patient's lab results. Result diagrams: 04/07/21 19:02 04/07/21 22:54 Labs: Lab Results 04/07/21 04/07/21 04/07/21 Range/Units 19:02 19:02 19: WBC 12.0 H (4.8-10.8) X10*3/uL RBC 4.42 L (4.60-5.80) X10*6/uL Hgb 13.1 L (14.0-18.0) g/dl Hct 39.3 L (42.0-52.0) % MCV 88.9 (80.0-98.0) fL MCH 29.6 (27.0-33.0) pg MCHC 33.3 (31.0-36.0) g/dl RDW 12.7 (11.0-16.0) % Plt Count 289 (160-400) X10*3/uL MPV 10.2 (9.4-12.4) fL Immature Gran % (Auto) 0.2 (0.0-0.4) % Neut % (Auto) 71.7 (45-73) % Lymph % (Auto) 19.6 L (20-40) % [place] % (Auto) 7.2 (2-11) % Eos % (Auto) 0.7 (0-4) % Baso % (Auto) 0.6 (0-2) % Lymph # (Auto) 2.4 (1.2-4.9) X10*3/uL [place] # (Auto) 0.9 (0.1-1.2) X10*3/uL Eos # (Auto) 0.1 (0.0-0.4) X10*3/uL Baso # (Auto) 0.1 (0.0-0.2) X10*3/uL Abs Immat Gran (auto) 0.03 (0.00-0.03) X10*3/uL Absolute Neuts (auto) 8.6 H (2.0-8.3) x10*3/uL Absolute Nucleated RBC 0.000 (0.0-0.012) X10*3/uL Nucleated RBC % (auto) 0.0 (0.0-0.2) /100WBC PT (9.9-13.0) SEC INR (0.9-1.1) APTT (24.1-38.0) SEC Sodium 137 (135-145) mmol/L Potassium 4.1 (3.3-5.1) mmol/L Chloride 107 (96-108) mmol/L Carbon Dioxide 24 (22-29) mmol/L Anion Gap 10 L (12-20) BUN 11 (9-16) mg/dL Creatinine 0.69 (0.5-1.4) mg/dL Estim Creat Clear Calc 185.2 Estimated GFR > 60 Random Glucose 97 (60-115) mg/dL Calcium 9.2 (8.4-10.2) mg/dL Magnesium 2.1 (1.6-2.6) mg/dL Total Bilirubin 1.1 H (0.0-1.0) mg/dL Direct Bilirubin 0.4 (0.0-0.5) mg/dL AST 19 (5-37) U/L ALT 14 (0-40) U/L Alkaline Phosphatase 65 (39-117) U/L Total Protein 7.0 (6.5-8.0) g/dL Albumin 4.2 (3.5-5.0) g/dL Lipase 14 (8-78) U/L Urine Color Urine Appearance Urine pH (5.0-8.0) Ur Specific [place] (1.005-1.025) Urine Protein (NEG-TRACE) MG/DL Urine Glucose (UA) (NEG) MG/DL Urine Ketones (NEG) MG/DL Urine Blood (NEG) Urine Nitrite (NEG) Ur Leukocyte Esterase (NEG) Salicylates < 5.0 L (15-30) mg/dL Urine Opiates Screen (Not Detect) Urine Fentanyl Screen (Not Detect) Acetaminophen 1 (<30) mcg/mL Ur Barbiturates Screen (Not Detect) Ur Phencyclidine Scrn (Not Detect) Ur Amphetamines Screen (Not Detect) U Benzodiazepines Scrn (Not Detect) Urine Cocaine Screen (Not Detect) U Marijuana (THC) Screen (Not Detect) COVID-19 (GLADIS) Negative (Negative) COVID-19 Clin Com See Note 04/07/21 04/07/21 04/07/21 Range/Units 20:17 20:17 22:54 WBC (4.8-10.8) X10*3/uL RBC (4.60-5.80) X10*6/uL Hgb (14.0-18.0) g/dl Hct (42.0-52.0) % MCV (80.0-98.0) fL MCH (27.0-33.0) pg MCHC (31.0-36.0) g/dl RDW (11.0-16.0) % Plt Count (160-400) X10*3/uL MPV (9.4-12.4) fL Immature Gran % (Auto) (0.0-0.4) % Neut % (Auto) (45-73) % Lymph % (Auto) (20-40) % [place] % (Auto) (2-11) % Eos % (Auto) (0-4) % Baso % (Auto) (0-2) % Lymph # (Auto) (1.2-4.9) X10*3/uL [place] # (Auto) (0.1-1.2) X10*3/uL Eos # (Auto) (0.0-0.4) X10*3/uL Baso # (Auto) (0.0-0.2) X10*3/uL Abs Immat Gran (auto) (0.00-0.03) X10*3/uL Absolute Neuts (auto) (2.0-8.3) x10*3/uL Absolute Nucleated RBC (0.0-0.012) X10*3/uL Nucleated RBC % (auto) (0.0-0.2) /100WBC PT 12.7 (9.9-13.0) SEC INR 1.1 (0.9-1.1) APTT 36.5 (24.1-38.0) SEC Sodium (135-145) mmol/L Potassium (3.3-5.1) mmol/L Chloride (96-108) mmol/L Carbon Dioxide (22-29) mmol/L Anion Gap (12-20) BUN (9-16) mg/dL Creatinine (0.5-1.4) mg/dL Estim Creat Clear Calc Estimated GFR Random Glucose (60-115) mg/dL Calcium (8.4-10.2) mg/dL Magnesium (1.6-2.6) mg/dL Total Bilirubin (0.0-1.0) mg/dL Direct Bilirubin (0.0-0.5) mg/dL AST (5-37) U/L ALT (0-40) U/L Alkaline Phosphatase (39-117) U/L Total Protein (6.5-8.0) g/dL Albumin (3.5-5.0) g/dL Lipase (8-78) U/L Urine Color YELLOW Urine Appearance CLEAR Urine pH 6.0 (5.0-8.0) Ur Specific [place] 1.010 (1.005-1.025) Urine Protein NEG (NEG-TRACE) MG/DL Urine Glucose (UA) NEG (NEG) MG/DL Urine Ketones NEG (NEG) MG/DL Urine Blood NEG (NEG) Urine Nitrite NEG (NEG) Ur Leukocyte Esterase NEG (NEG) Salicylates (15-30) mg/dL Urine Opiates Screen Not Detected (Not Detect) Urine Fentanyl Screen Not Detected (Not Detect) Acetaminophen (<30) mcg/mL Ur Barbiturates Screen Not Detected (Not Detect) Ur Phencyclidine Scrn Not Detected (Not Detect) Ur Amphetamines Screen Not Detected (Not Detect) U Benzodiazepines Scrn Not Detected (Not Detect) Urine Cocaine Screen Not Detected (Not Detect) U Marijuana (THC) Screen POSITIVE H (Not Detect) COVID-19 (GLADIS) (Negative) COVID-19 Clin Com 04/07/21 Range/Units 22:54 WBC (4.8-10.8) X10*3/uL RBC (4.60-5.80) X10*6/uL Hgb (14.0-18.0) g/dl Hct (42.0-52.0) % MCV (80.0-98.0) fL MCH (27.0-33.0) pg MCHC (31.0-36.0) g/dl RDW (11.0-16.0) % Plt Count (160-400) X10*3/uL MPV (9.4-12.4) fL Immature Gran % (Auto) (0.0-0.4) % Neut % (Auto) (45-73) % Lymph % (Auto) (20-40) % [place] % (Auto) (2-11) % Eos % (Auto) (0-4) % Baso % (Auto) (0-2) % Lymph # (Auto) (1.2-4.9) X10*3/uL [place] # (Auto) (0.1-1.2) X10*3/uL Eos # (Auto) (0.0-0.4) X10*3/uL Baso # (Auto) (0.0-0.2) X10*3/uL Abs Immat Gran (auto) (0.00-0.03) X10*3/uL Absolute Neuts (auto) (2.0-8.3) x10*3/uL Absolute Nucleated RBC (0.0-0.012) X10*3/uL Nucleated RBC % (auto) (0.0-0.2) /100WBC PT (9.9-13.0) SEC INR (0.9-1.1) APTT (24.1-38.0) SEC Sodium 140 (135-145) mmol/L Potassium 4.3 (3.3-5.1) mmol/L Chloride 109 H (96-108) mmol/L Carbon Dioxide 24 (22-29) mmol/L Anion Gap 11 L (12-20) BUN 10 (9-16) mg/dL Creatinine 0.70 (0.5-1.4) mg/dL Estim Creat Clear Calc 182.5 Estimated GFR > 60 Random Glucose 103 (60-115) mg/dL Calcium 8.7 (8.4-10.2) mg/dL Magnesium (1.6-2.6) mg/dL Total Bilirubin 0.9 (0.0-1.0) mg/dL Direct Bilirubin 0.3 (0.0-0.5) mg/dL AST 19 (5-37) U/L ALT 12 (0-40) U/L Alkaline Phosphatase 59 (39-117) U/L Total Protein 6.6 (6.5-8.0) g/dL Albumin 3.9 (3.5-5.0) g/dL Lipase 17 (8-78) U/L Urine Color Urine Appearance Urine pH (5.0-8.0) Ur Specific [place] (1.005-1.025) Urine Protein (NEG-TRACE) MG/DL Urine Glucose (UA) (NEG) MG/DL Urine Ketones (NEG) MG/DL Urine Blood (NEG) Urine Nitrite (NEG) Ur Leukocyte Esterase (NEG) Salicylates (15-30) mg/dL Urine Opiates Screen (Not Detect) Urine Fentanyl Screen (Not Detect) Acetaminophen < 1 (<30) mcg/mL Ur Barbiturates Screen (Not Detect) Ur Phencyclidine Scrn (Not Detect) Ur Amphetamines Screen (Not Detect) U Benzodiazepines Scrn (Not Detect) Urine Cocaine Screen (Not Detect) U Marijuana (THC) Screen (Not Detect) COVID-19 (GLADIS) (Negative) COVID-19 Clin Com ECG Data Attestation: I personally reviewed and interpreted this ECG as follows: Interpretation: Normal sinus rhythm at 75 beats per minute, normal axis deviation, prolonged WI interval with 1st degree AV block. no ST-T ischemic change. Discharge Plan Discharge Clinical Impression: Suicidal behavior, Drug overdose, PTSD (post-traumatic stress disorder) Prescriptions: No Action duloxetine 30 mg capsule,delayed release(DR/EC) 3 cap PO QAM 0RF testosterone cypionate 200 mg/mL oil 0.5 ml subcut QWEEK 0RF olanzapine 15 mg tablet 1 tab PO BEDTIME 0RF
[2021-04-07 19:27] LABS: COVID-19 Test Negative (Negative)
[2021-04-07 19:29] LABS: Acetaminophen LAB 1 mcg/mL (<30); Magnesium 2.1 mg/dL (1.6-2.6); Salicylate < 5.0 mg/dL (15-30)
[2021-04-07 19:32] LABS: Alanine Aminotransferase 14 U/L (0-40); Albumin Level 4.2 g/dL (3.5-5.0); Alkaline Phosphatase 65 U/L (39-117); Anion Gap 10 (12-20); Aspartate Amino Transferase 19 U/L (5-37); Bilirubin Direct 0.4 mg/dL (0.0-0.5); Bilirubin Total 1.1 mg/dL (0.0-1.0); Blood Urea Nitrogen 11 mg/dL (9-16); Calcium 9.2 mg/dL (8.4-10.2); Carbon Dioxide 24 mmol/L (22-29); Chloride 107 mmol/L (96-108); Creatinine Clr Calc Pharmacy 185.2; Estimated Glomerular Filt Rate > 60; Glucose Random 97 mg/dL (60-115); Lipase 14 U/L (8-78); Potassium 4.1 mmol/L (3.3-5.1); Sodium 137 mmol/L (135-145)
--- NOTE | 2021-04-07 19:35 | PC.NURSE ---
spoke with poison control, since >8hrs since ingestion, recommended IV N-acetylcysteine at 150g/kg in 200ml D5W over an hour, provider notified, lab results pending, will update poison control with labs when available.
--- NOTE | 2021-04-07 19:44 | PC.NURSE ---
Spoke w poison control re lab results, suggested holding treatment due to normal labs, recheck in 4hrs, call w lab update
[2021-04-07 20:00] VITALS: BP 136/77; PULSE 77; RESP 16; TEMP 36.8; O2SAT 98
--- NOTE | 2021-04-07 20:01 | PC.NURSE ---
n referral sent, labs to be repeated at 2300, cardiac cath technician intact- nsr with 1st degree av block, 1:1 sitter at bedside, patient continues to deny current si/hi.
[2021-04-07 20:24] LABS: Appearance Urine CLEAR; Color Urine YELLOW; Glucose Urine UA NEG (NEG); Leukocyte Esterase Urine NEG (NEG); Nitrite Urine NEG (NEG); Urine Blood NEG (NEG); Urine Ketones NEG (NEG); Urine Protein NEG (NEG-TRACE)
[2021-04-07 20:38] LABS: Amphetamine Screen Urine Not Detected (Not Detect); Barbiturates, Urine Not Detected (Not Detect); Benzodiazepines Screen Urine Not Detected (Not Detect); Cannabinoid Screen Urine POSITIVE (Not Detect); Cocaine Screen Urine Not Detected (Not Detect); Fentanyl, urine Not Detected (Not Detect); Opiate Screen Urine Not Detected (Not Detect); Phencyclidine Screen Urine Not Detected (Not Detect)
[2021-04-07] MEDS: ondansetron HCL 4 MG/2 ML VIAL IVPUSH (21:52)
--- NOTE | 2021-04-07 21:53 | PC.NURSE ---
patient medicated per order, ivf continue to run leroy, director targeted marketing nsr, 1:1 sitter at bedside
[2021-04-07 22:00] VITALS: BP 141/90; PULSE 89; RESP 16; O2SAT 97
--- NOTE | 2021-04-07 22:58 | PC.NURSE ---
Addendum entered by Deon Aldrich 04/07/21 22:58: labs obtained. Original Note: pt a&ox3, sitting on bed watching TV, vss, 1:1 sitter in room.
[2021-04-07 23:12] LABS: INTERNATIONAL NORM RATIO 1.1 (0.9-1.1); Prothrombin Time 12.7 SEC (9.9-13.0)
[2021-04-07 23:14] LABS: Partial Thromboplastin Time 36.5 SEC (24.1-38.0)
[2021-04-07 23:19] LABS: Alanine Aminotransferase 12 U/L (0-40); Albumin Level 3.9 g/dL (3.5-5.0); Alkaline Phosphatase 59 U/L (39-117); Anion Gap 11 (12-20); Aspartate Amino Transferase 19 U/L (5-37); Bilirubin Direct 0.3 mg/dL (0.0-0.5); Bilirubin Total 0.9 mg/dL (0.0-1.0); Blood Urea Nitrogen 10 mg/dL (9-16); Calcium 8.7 mg/dL (8.4-10.2); Carbon Dioxide 24 mmol/L (22-29); Chloride 109 mmol/L (96-108); Creatinine Clr Calc Pharmacy 182.5; Estimated Glomerular Filt Rate > 60; Glucose Random 103 mg/dL (60-115); Lipase 17 U/L (8-78); Potassium 4.3 mmol/L (3.3-5.1); Sodium 140 mmol/L (135-145); Total Protein 6.6 g/dL (6.5-8.0)
[2021-04-08 00:19] VITALS: BP 139/65; PULSE 86; RESP 17; TEMP 36.8; O2SAT 97
[2021-04-08 00:57] LABS: Acetaminophen LAB < 1 mcg/mL (<30)
--- NOTE | 2021-04-08 05:26 | PC.NURSE ---
Patient slept through the night, no distress observed/reported, VSS, behavior appropriate and non concerning at this time, med rec completed/pending provider's approval, BHN referral completed/confirmed pending evaluation, will continue to monitor.
--- NOTE | 2021-04-08 07:11 | PC.NURSE ---
patient appears ot remain asleep at present respirations are even and unlabored, patient appears in no distress
[2021-04-08] MEDS: DULoxetine HCl 30 MG CAPSULE.DR 90 MG PO (12:48)
[2021-04-08 16:21] VITALS: BP 141/81; PULSE 94; RESP 18; TEMP 36.9; O2SAT 99
--- NOTE | 2021-04-08 16:55 | PC.NURSE ---
patients foster mother left contact numbers [phone] home and cell [phone]
[2021-04-08] MEDS: OLANZapine 7.5 MG TABLET 15 MG PO (20:43)
[2021-04-09 05:56] VITALS: BP 129/63; PULSE 90; RESP 20; TEMP 36.9; O2SAT 97
--- NOTE | 2021-04-09 06:26 | PC.NURSE ---
Patient slept through the night, no distress observed/reported, behavior appropriate and non concerning, medication compliant, disposition per [facility] inpatient bed search, VSS, will continue to monitor.
--- NOTE | 2021-04-09 07:02 | PC.NURSE ---
patient appears to remain asleep at present respirations are even and unlabored patient appears in no distress
[2021-04-09] MEDS: DULoxetine HCl 30 MG CAPSULE.DR 90 MG PO (08:57)
[2021-04-09 15:46] VITALS: BP 140/78; PULSE 93; TEMP 36.7; O2SAT 98
--- NOTE | 2021-04-09 17:26 | PC.NURSE ---
nurse to nurse given to terell wharton on m3
[2021-04-09] MEDS: OLANZapine 7.5 MG TABLET 15 MG PO (20:17)
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
[2021-04-09 21:45] VITALS: BP 119/70; PULSE 80; RESP 17; TEMP 36.2; O2SAT 95
[2021-04-09] MEDS: hydrOXYzine HCL 25 MG TABLET PO (22:24)
[2021-04-10 02:25] VITALS: BMI 30.4
--- NOTE | 2021-04-10 04:48 | PC.NURSE ---
20 year old male (assigned female at ) patient admitted to on 04/09/2021 at 2105 s/p intentional overdose on thirty 500mg tylenol. Pt. reports command AH of voices telling him to take the pills. Pt. wrote a suicide note. He reports he fell asleep and vomited three times the following morning. Pt. reports he stopped zyprexa about a week ago because he didn?t feel it was working. Pt. experiencing increased AH, worsening depression, panic attacks, and insomnia. AH began approximately two years ago. Pt. describes AH as more than one voice that mostly talk to him but occasionally the voices talk to each other. Command AH at times to hurt himself. Pt. reports AH ?comes and goes.? Anxiety triggers the voices. Coping mechanisms include grounding and meditation. Pt. uses marijuana daily from the dispensary. He plans to stop using marijuana because he believes it contributes to increased AH.? Pt. A&Ox4. Pt. calm and cooperative during admission assessment. Pt. denied HI and VH. Pt. has no acute or chronic medical issues. Pt. refused flu vaccine. Pt. reports a history of trauma. Previous inpatient at [facility] [facility] 10/20/2020 to 10/26/2020 after Tylenol OD attempt. Pt. signed a CV. After admission assessment was completed he signed a three-day notice which will be up on 04/12/2021. Pt. took hydroxyzine 25mg at 2224 for anxiety and insomnia. Pt. is taking testosterone injection weekly.? Admission orders entered. Medication reconciliation completed. Admission assessments completed. Safety tool completed. Pt. denies active SI at this time. Pt. contracts for safety.?
[2021-04-10 08:30] VITALS: BP 124/61; PULSE 65; RESP 16; TEMP 36.7; O2SAT 97
[2021-04-10 08:50] LABS: Cholesterol 131 mg/dL; HDL Cholesterol 39 mg/dL; LDL Cholesterol Calculated 76 mg/dl; Magnesium 2.1 mg/dL (1.6-2.6); Triglycerides 81 mg/dL
[2021-04-10 08:51] LABS: Estimated Average Glucose 103 mg/dL; Hemoglobin A1c % 5.2 %
[2021-04-10] MEDS: DULoxetine HCl 30 MG CAPSULE.DR 90 MG PO (08:53)
[2021-04-10 09:12] LABS: Free T4 (Free Thyroxine) 1.08 ng/dL (0.71-1.85); Thyroid Stimulating Hormone 0.57 uIU/mL (0.32-4.0)
[2021-04-10 09:32] LABS: Folate 11.1 ng/mL (> or = 4.0); Vitamin B12 438 pg/mL (200-900)
[2021-04-10] MEDS: Dextroamphetamine/Amphetamine XR 5 MG CAP.ER.24H 15 MG PO (12:13)
--- NOTE | 2021-04-10 15:51 | P.PNPSI_ITS ---
Subjective Subjective Date of Service: 04/10/21 Reason For Visit: SI, OVERDOSE Interim History: slept well, feeling good on zyprexa. helps with sleep, mood stabilization, and AH. feeling much better than at admission. as happened last time, feels his foster family is coming together for him and showing him their care and support. denies AI/HI/AVH today. discuss restarting adderall XR 15 mg daily, which we decide to do as of today. planning for discharge. per staff, ovmindi rdosed on tylenol, not for the first time. had CAH to suicide. stopped zyprexa about a week prior to the attempt bcse he felt it wasn't working for his AH. then his Sx worsened... increased anxiety leads to increased voices. uses cannabis daily. trauma Hx. got hydroxyzine last NOC and slept well. Mental Status Exam Mental Status Exam Narrative: A&O. In street clothes, good hygiene. No Tics or Tremors. No abnormal involuntary movements. Non-pressured speech, spontaneous with regular rate and rhythm, normal volume and prosody. No prolonged speech latency or dysarthria. affect is flexible. mood much better. denies SI/SIBI/HI/AVH. Thoughts are coherent, organized. No known cognitive or memory impairment. Insight/ Judgment fair and adequate. Diagnostics Vital Signs (24Hr): Vital Signs - 24 hr 04/09/21 21:45 04/10/21 08:30 Temperature 97.1 F 98.0 F Pulse Rate 80 65 Respiratory Rate 17 16 Blood Pressure 119/70 124/61 Pulse Oximetry 95 97 BMI result Body Mass Index 30.4 Labs Results: 04/07/21 19:02 04/07/21 22:54 Labs: Laboratory Results - last 48 hr 04/10/21 04/10/21 04/10/21 08:27 08:27 08:27 Estimat Average Glucose 103 Hemoglobin A1c % 5.2 Magnesium 2.1 Triglycerides 81 Cholesterol 131 LDL Cholesterol, Calc 76 HDL Cholesterol 39 Vitamin B12 438 Folate 11.1 TSH 0.57 Free T4 1.08 Medications Medications Current Medications Al Hydroxide/Mg Hydroxide (Magnesium Hydrox/Alum Hydrox 30 Ml Oral.Susp) 30 ml PO Q6H PRN PRN Reason: Heartburn/Nausea Amphetamine/Dextroamphetamine (Dextroamphetamine/Amphetamine Xr 5 Mg Cap.Er.24h) 15 mg PO DAILY@1100 [facility] Last Admin: 04/10/21 12:13 Dose: 15 mg Documented by: Duloxetine HCl (Duloxetine Hcl 30 Mg Capsule.Dr) 90 mg PO DAILY [facility] Last Admin: 04/10/21 08:53 Dose: 90 mg Documented by: Hydroxyzine HCl (Hydroxyzine Hcl 25 Mg Tablet) 25 mg PO Q6H PRN PRN Reason: Anxiety Last Admin: 04/09/21 22:24 Dose: 25 mg Documented by: Magnesium Hydroxide (Milk Of Magnesia 30 Ml Oral.Susp) 30 ml PO DAILY PRN PRN Reason: Constipation Non-Formulary Medication (Testosterone Cypionate) 0.5 ml SUBCUT Nicole [facility] Olanzapine (Olanzapine 7.5 Mg Tablet) 15 mg PO BEDTIME [facility] Last Admin: 04/09/21 20:17 Dose: 15 mg Documented by: Trazodone HCl (Trazodone Hcl 50 Mg Tablet) 50 mg PO BEDTIME PRN PRN Reason: Insomnia Allergies Allergies Allergy/AdvReac Type Severity Reaction Status Date / Time Albuterol Allergy Unknown Unknown Uncoded 04/10/21 00:46 Flovent HFA Allergy Unknown Unknown Uncoded 04/10/21 00:46 Assessment & Plan Assessment & Plan (1) Major depression: Status: Acute Code(s): F32.9 - Major depressive disorder, single episode, unspecified (2) ADHD: Status: Acute Code(s): F90.9 - Attention-deficit hyperactivity disorder, unspecified type (3) PTSD (post-traumatic stress disorder): Status: Acute Code(s): F43.10 - Post-traumatic stress disorder, unspecified Plan Plan: restarted olanzapine 15 mg QHS at admission. restarted adderall XR 15 mg daily aday after admission. observe for stability, then DC to outpt care. I spent minutes with the patient and/or on the patient floor today, greater than?50% of which was spent counseling/coordinating care. Reason for contiued inpatient stay Substantial Risk for: harm to self, inability to function and rapid decompensation
[2021-04-10 20:01] VITALS: BP 144/88; PULSE 103; RESP 18; TEMP 36.9; O2SAT 97
[2021-04-10] MEDS: traZODone HCL 50 MG TABLET PO (20:05)
[2021-04-10] MEDS: OLANZapine 7.5 MG TABLET 15 MG PO (20:05)
[2021-04-11 06:00] VITALS: BP 146/85; PULSE 85; RESP 16; TEMP 36.8; O2SAT 95
[2021-04-11] MEDS: DULoxetine HCl 30 MG CAPSULE.DR 90 MG PO (08:28)
[2021-04-11] MEDS: Dextroamphetamine/Amphetamine XR 5 MG CAP.ER.24H 15 MG PO (10:09)
--- NOTE | 2021-04-11 16:58 | HO.PSYCHPN ---
Subjective Subjective Date of Service: 04/11/21 Reason For Visit: SI, OVERDOSE Interim History: reports he continues to feel well. denies SI/HI/AVH, feels a lot better. would like to discharge tomorrow at noon. per staff, 3-day up tomorrow. safe. no SI/HI/AVH. feels zyprexa has been helpful. calm, med-compliant. adderall restarted. slept well on PRN trazodone. Mental Status Exam Mental Status Exam Narrative: A&O. In street clothes, good hygiene. No Tics or Tremors. No abnormal involuntary movements. Non-pressured speech, spontaneous with regular rate and rhythm, normal volume and prosody. No prolonged speech latency or dysarthria. affect is flexible. mood a lot better. denies SI/SIBI/HI/AVH. Thoughts are coherent, organized. No known cognitive or memory impairment. Insight/ Judgment fair and adequate. Diagnostics Vital Signs (24Hr): Vital Signs - 24 hr 04/10/21 20:01 04/11/21 06:00 Temperature 98.4 F 98.2 F Pulse Rate 103 H 85 Respiratory Rate 18 16 Blood Pressure 144/88 H 146/85 H Pulse Oximetry 97 95 BMI result Body Mass Index 30.4 Labs Results: 04/07/21 19:02 04/07/21 22:54 Labs: Laboratory Results - last 48 hr 04/10/21 04/10/21 04/10/21 08:27 08:27 08:27 Estimat Average Glucose 103 Hemoglobin A1c % 5.2 Magnesium 2.1 Triglycerides 81 Cholesterol 131 LDL Cholesterol, Calc 76 HDL Cholesterol 39 Vitamin B12 438 Folate 11.1 TSH 0.57 Free T4 1.08 Medications Medications Current Medications Al Hydroxide/Mg Hydroxide (Magnesium Hydrox/Alum Hydrox 30 Ml Oral.Susp) 30 ml PO Q6H PRN PRN Reason: Heartburn/Nausea Amphetamine/Dextroamphetamine (Dextroamphetamine/Amphetamine Xr 5 Mg Cap.Er.24h) 15 mg PO DAILY@1100 [facility] Last Admin: 04/11/21 10:09 Dose: 15 mg Documented by: Duloxetine HCl (Duloxetine Hcl 30 Mg Capsule.) 90 mg PO DAILY [facility] Last Admin: 04/11/21 08:28 Dose: 90 mg Documented by: Hydroxyzine HCl (Hydroxyzine Hcl 25 Mg Tablet) 25 mg PO Q6H PRN PRN Reason: Anxiety Last Admin: 04/09/21 22:24 Dose: 25 mg Documented by: Magnesium Hydroxide (Milk Of Magnesia 30 Ml Oral.Susp) 30 ml PO DAILY PRN PRN Reason: Constipation Non-Formulary Medication (Testosterone Cypionate) 0.5 ml SUBCUT Nicole [facility] Olanzapine (Olanzapine 7.5 Mg Tablet) 15 mg PO BEDTIME [facility] Last Admin: 04/10/21 20:05 Dose: 15 mg Documented by: Trazodone HCl (Trazodone Hcl 50 Mg Tablet) 50 mg PO BEDTIME PRN PRN Reason: Insomnia Last Admin: 04/10/21 20:05 Dose: 50 mg Documented by: Allergies Allergies Allergy/AdvReac Type Severity Reaction Status Date / Time Albuterol Allergy Unknown Unknown Uncoded 04/10/21 00:46 Flovent HFA Allergy Unknown Unknown Uncoded 04/10/21 00:46 Assessment & Plan Assessment & Plan (1) Major depression: Status: Acute Code(s): F32.9 - Major depressive disorder, single episode, unspecified (2) ADHD: Status: Acute Code(s): F90.9 - Attention-deficit hyperactivity disorder, unspecified type (3) PTSD (post-traumatic stress disorder): Status: Acute Code(s): F43.10 - Post-traumatic stress disorder, unspecified Plan Plan: restarted olanzapine 15 mg QHS at admission. restarted adderall XR 15 mg daily aday after admission. observe for stability, then DC to outpt care. DC tomorrow as 3-day notice matures and pt is not committable. I spent minutes with the patient and/or on the patient floor today, greater than?50% of which was spent counseling/coordinating care. Reason for contiued inpatient stay Substantial Risk for: inability to function and rapid decompensation
[2021-04-11 20:58] VITALS: BP 143/72; PULSE 98; RESP 18; TEMP 37.1; O2SAT 95
[2021-04-11] MEDS: traZODone HCL 50 MG TABLET PO (21:09)
[2021-04-11] MEDS: OLANZapine 7.5 MG TABLET 15 MG PO (21:09)
[2021-04-12 08:00] VITALS: BP 131/73; PULSE 74; RESP 16; TEMP 36.6; O2SAT 97
[2021-04-12] MEDS: DULoxetine HCl 30 MG CAPSULE.DR 90 MG PO (08:29)
[2021-04-12] MEDS: Dextroamphetamine/Amphetamine XR 5 MG CAP.ER.24H 15 MG PO (11:25)
--- NOTE | 2021-04-12 11:41 | PM.PSYDC ---
DS: Providers Provider Date of Service: 04/12/21 Date of admission: 04/09/21 18:22 Primary care physician: Unknown Physician DS: Diagnosis Discharge Diagnosis (1) Major depression: Status: Acute (2) ADHD: Status: Acute (3) PTSD (post-traumatic stress disorder): Status: Acute DS: Medications Discharge Medications Home Medications: Home Medications Medication Instructions Recorded Confirmed duloxetine 30 mg capsule,delayed 3 cap PO QAM 04/07/21 04/07/21 release olanzapine 15 mg tablet 1 tab PO BEDTIME 04/07/21 04/07/21 testosterone cypionate 200 mg/mL 0.5 ml SUBCUT CAMILO 04/07/21 04/09/21 intramuscular oil Previous Rx's Medication Instructions Recorded dextroamphetamine-amphetamine ER 5 15 mg PO DAILY@1100 30 Days #90 cap 04/12/21 mg 24hr capsule,extend release trazodone 50 mg tablet 50 mg PO BEDTIME PRN 30 Days #30 04/12/21 tab Mental Status Exam Mental Status Exam Narrative: A&O. In street clothes, good hygiene. No Tics or Tremors. No abnormal involuntary movements. Non-pressured speech, spontaneous with regular rate and rhythm, normal volume and prosody. No prolonged speech latency or dysarthria. affect is flexible. mood good. denies SI/SIBI/HI/AVH. Thoughts are coherent, organized. No known cognitive or memory impairment. Insight/ Judgment fair and adequate. Data Data Completed and Pending Completed studies during hospitalization [Text1]: 04/07/21 04/07/21 04/07/21 19:02 19:02 19:02 WBC 12.0 H RBC 4.42 L Hgb 13.1 L Hct 39.3 L MCV 88.9 MCH 29.6 MCHC 33.3 RDW 12.7 Plt Count 289 MPV 10.2 Immature Gran % (Auto) 0.2 Neut % (Auto) 71.7 Lymph % (Auto) 19.6 L [place] % (Auto) 7.2 Eos % (Auto) 0.7 Baso % (Auto) 0.6 Lymph # (Auto) 2.4 [place] # (Auto) 0.9 Eos # (Auto) 0.1 Baso # (Auto) 0.1 Abs Immat Gran (auto) 0.03 Absolute Neuts (auto) 8.6 H Absolute Nucleated RBC 0.000 Nucleated RBC % (auto) 0.0 PT INR APTT Sodium 137 Potassium 4.1 Chloride 107 Carbon Dioxide 24 Anion Gap 10 L BUN 11 Creatinine 0.69 Estim Creat Clear Calc 185.2 Estimated GFR > 60 Random Glucose 97 Estimat Average Glucose Hemoglobin A1c % Calcium 9.2 Magnesium 2.1 Total Bilirubin 1.1 H Direct Bilirubin 0.4 AST 19 ALT 14 Alkaline Phosphatase 65 Total Protein 7.0 Albumin 4.2 Triglycerides Cholesterol LDL Cholesterol, Calc HDL Cholesterol Lipase 14 Vitamin B12 Folate TSH Free T4 Urine Color Urine Appearance Urine pH Ur Specific [place] Urine Protein Urine Glucose (UA) Urine Ketones Urine Blood Urine Nitrite Ur Leukocyte Esterase Salicylates < 5.0 L Urine Opiates Screen Urine Fentanyl Screen Acetaminophen 1 Ur Barbiturates Screen Ur Phencyclidine Scrn Ur Amphetamines Screen U Benzodiazepines Scrn Urine Cocaine Screen U Marijuana (THC) Screen COVID-19 (GLADIS) Negative COVID-[employer] See Note 04/07/21 04/07/21 04/07/21 20:17 20:17 22:54 WBC RBC Hgb Hct MCV MCH MCHC RDW Plt Count MPV Immature Gran % (Auto) Neut % (Auto) Lymph % (Auto) [place] % (Auto) Eos % (Auto) Baso % (Auto) Lymph # (Auto) [place] # (Auto) Eos # (Auto) Baso # (Auto) Abs Immat Gran (auto) Absolute Neuts (auto) Absolute Nucleated RBC Nucleated RBC % (auto) PT 12.7 INR 1.1 APTT 36.5 Sodium Potassium Chloride Carbon Dioxide Anion Gap BUN Creatinine Estim Creat Clear Calc Estimated GFR Random Glucose Estimat Average Glucose Hemoglobin A1c % Calcium Magnesium Total Bilirubin Direct Bilirubin AST ALT Alkaline Phosphatase Total Protein Albumin Triglycerides Cholesterol LDL Cholesterol, Calc HDL Cholesterol Lipase Vitamin B12 Folate TSH Free T4 Urine Color YELLOW Urine Appearance CLEAR Urine pH 6.0 Ur Specific [place] 1.010 Urine Protein NEG Urine Glucose (UA) NEG Urine Ketones NEG Urine Blood NEG Urine Nitrite NEG Ur Leukocyte Esterase NEG Salicylates Urine Opiates Screen Not Detected Urine Fentanyl Screen Not Detected Acetaminophen Ur Barbiturates Screen Not Detected Ur Phencyclidine Scrn Not Detected Ur Amphetamines Screen Not Detected U Benzodiazepines Scrn Not Detected Urine Cocaine Screen Not Detected U Marijuana (THC) Screen POSITIVE H COVID-19 ([facility]ADIS) COVID-[employer] 04/07/21 04/10/21 04/10/21 22:54 08:27 08:27 WBC RBC Hgb Hct MCV MCH MCHC RDW Plt Count MPV Immature Gran % (Auto) Neut % (Auto) Lymph % (Auto) [place] % (Auto) Eos % (Auto) Baso % (Auto) Lymph # (Auto) [place] # (Auto) Eos # (Auto) Baso # (Auto) Abs Immat Gran (auto) Absolute Neuts (auto) Absolute Nucleated RBC Nucleated RBC % (auto) PT INR APTT Sodium 140 Potassium 4.3 Chloride 109 H Carbon Dioxide 24 Anion Gap 11 L BUN 10 Creatinine 0.70 Estim Creat Clear Calc 182.5 Estimated GFR > 60 Random Glucose 103 Estimat Average Glucose 103 Hemoglobin A1c % 5.2 Calcium 8.7 Magnesium 2.1 Total Bilirubin 0.9 Direct Bilirubin 0.3 AST 19 ALT 12 Alkaline Phosphatase 59 Total Protein 6.6 Albumin 3.9 Triglycerides 81 Cholesterol 131 LDL Cholesterol, Calc 76 HDL Cholesterol 39 Lipase 17 Vitamin B12 Folate TSH 0.57 Free T4 1.08 Urine Color Urine Appearance Urine pH Ur Specific [place] Urine Protein Urine Glucose (UA) Urine Ketones Urine Blood Urine Nitrite Ur Leukocyte Esterase Salicylates Urine Opiates Screen Urine Fentanyl Screen Acetaminophen < 1 Ur Barbiturates Screen Ur Phencyclidine Scrn Ur Amphetamines Screen U Benzodiazepines Scrn Urine Cocaine Screen U Marijuana (THC) Screen COVID-19 ([facility]) COVID-19 Clin Com 04/10/21 08:27 WBC RBC Hgb Hct MCV MCH MCHC RDW Plt Count MPV Immature Gran % (Auto) Neut % (Auto) Lymph % (Auto) [place] % (Auto) Eos % (Auto) Baso % (Auto) Lymph # (Auto) [place] # (Auto) Eos # (Auto) Baso # (Auto) Abs Immat Gran (auto) Absolute Neuts (auto) Absolute Nucleated RBC Nucleated RBC % (auto) PT INR APTT Sodium Potassium Chloride Carbon Dioxide Anion Gap BUN Creatinine Estim Creat Clear Calc Estimated GFR Random Glucose Estimat Average Glucose Hemoglobin A1c % Calcium Magnesium Total Bilirubin Direct Bilirubin AST ALT Alkaline Phosphatase Total Protein Albumin Triglycerides Cholesterol LDL Cholesterol, Calc HDL Cholesterol Lipase Vitamin B12 438 Folate 11.1 TSH Free T4 Urine Color Urine Appearance Urine pH Ur Specific [place] Urine Protein Urine Glucose (UA) Urine Ketones Urine Blood Urine Nitrite Ur Leukocyte Esterase Salicylates Urine Opiates Screen Urine Fentanyl Screen Acetaminophen Ur Barbiturates Screen Ur Phencyclidine Scrn Ur Amphetamines Screen U Benzodiazepines Scrn Urine Cocaine Screen U Marijuana (THC) Screen COVID-19 ([facility]ADIS) COVID-19 Clin Com DS: Summary Hospital Course Hospital Course: per 04/09 admission note: 20 years old male history of PTSD and ADHD and history of SI came in for evaluation after ingested handful of extra-strength Tylenol about 20 hours ago.? Patient overdosed on Tylenol yesterday after hearing voices encourage him to overdose and hurt himself, patient is to be eating about 30 tablets of extra-strength Tylenol (500 mg each), despite the initial report by Nursing say that the patient denies SI or HI however patient admitted to SI and HI and hearing voices.? Patient told his parents about the overdose today who called the ambulance and transported him to the hospital. Patient been having nausea and mild epigastric pain, he vomited once today. Patient declined any other coingestion or using any other drugs. Having panic attacks, hearing voices, wanting to stop everything. They do get better with medication, not on olanzapine for a week, depression, getting worse seasonally. Impulsive, regretful, threw up three times the next morning, nothing in between november. Adderall helps with focus and energy, derrick espino- not hurting the voices. Doesnt know the voices, derogatory, negative, olanzapine helps with sleep, at first it helped with the voices, hasnt helped, more derogatory off olanzapine. Barely sleeping, energy is low, trouble eating. 4 hours of sleep. Nightmares. Flashbacks in the day. Anxiety is high. Risperidone didnt really do anything. Voices and go, if they something to say, i.e. if i get really anxious they start picking up. Started two years ago. Grounding works. Duloxetine helps with depression. Had panic attack yesterdya, i get claustrophobic, in the pod. Foster Mom and sister. No VH. more than one, mostly talking to him. Sometimes command to hurt self. Denies anger or aggression. Trauma informed. Stress induced paranoia, it picked up a lot the day before, people listening through phones and cinthia, uncle in the , worries about surveillance. Feels like he gest signs, shagufta numbers, it will come up. Wants safe place to recover, feels safe. I like it a lot for sleeping. Alright with being off the adderall. Daily cannabis, dispensary, 500 mg cart, lasts a week or two, doesnt help with the voices, withdrawal, groggy. Drink, not often, tipsy, every once in a while. No seizures, no head injury, no cardiac issues. PMFSH Medical History? Acetaminophen overdose ADHD Anxiety Anxiety disorder, unspecified Asthma Depression Depression PTSD (post-traumatic stress disorder) Suicide attempt by acetaminophen overdose 04/10: slept well, feeling good on zyprexa.? helps with sleep, mood stabilization, and AH.? feeling much better than at admission.? as happened last time, feels his foster family is coming together for him and showing him their care and support.? denies AI/HI/AVH today.? discuss restarting adderall XR 15 mg daily, which we decide to do as of today.? planning for discharge.? per staff, overdosed on tylenol, not for the first time.? had CAH to suicide.? stopped zyprexa about a week prior to the attempt bcse he felt it wasn't working for his AH.? then his Sx worsened...? increased anxiety leads to increased voices.? uses cannabis daily.? trauma Hx.? got hydroxyzine last NOC and slept well. 04/11: reports he continues to feel well.? denies SI/HI/AVH, feels a lot better. ? would like to discharge tomorrow at noon.? per staff, 3-day up tomorrow.? safe.? no SI/HI/AVH.? feels zyprexa has been helpful.? calm, med-compliant.? adderall restarted.? slept well on PRN trazodone. 04/12: pt reports his mood continue to be good, denies any safety concerns. reports he will be getting picked up by his mother at noon. meds reviewed, reconciled, and prescribed. Precis: restarted olanzapine 15 mg QHS at admission. restarted adderall XR 15 mg daily aday after admission. quickly stabilized. DCed 04/12 as 3-day notice matured and pt was not committable. Time Spent with Patient Time attestation: Total time spent providing and/or coordinating discharge services: Discharge Plan Discharge Patient Disposition: Home, Self-Care Discharge Diagnosis: Major Depressive Disorder, Recurrent, Moderate Referrals: Derrick Espino (Psychiatry) [Other] - 05/07/21 8:00 am (Telehealth appointment) [facility] [Other] - 04/17/21 11:45 am (Appointment scheduled for Saturday, April 17, 2021 @ 11:45 AM IN-OFFCE with Dr. Laird as Alyx is not available.) Discharge Medications: New trazodone 50 mg Tablet 50 mg PO BEDTIME PRN (Reason: Insomnia) 30 Days Qty: 30 0RF dextroamphetamine-amphetamine 5 mg Capsule,Extended Release 24hr 15 mg PO DAILY@1100 30 Days Qty: 90 0RF Continued duloxetine 30 mg capsule,delayed release(DR/EC) 3 cap PO QAM 0RF testosterone cypionate 200 mg/mL oil 0.5 ml subcut CAMILO 0RF olanzapine 15 mg tablet 1 tab PO BEDTIME 0RF Discharge Orders: Discharge Order (Routine); Ordered 04/12/21 Ordered By: Uche Garcia Diet: advance to usual diet Activity on Discharge: As tolerated Stand Alone Forms: Patient Portal Discharge page, Community Support Care Plan Goals: maintain safe and independent living in the outpatient treatment setting. Health Concerns: none Plan of Treatment: take medications as prescribed, attend appointments as scheduled. Assessment: not at imminent risk of harm to self or others. Discharge Date/Time: 04/12/21 12:07
[2021-04-12 11:59] VITALS: BMI 30.2
== END 2021-04-12 12:07 | disposition home or self-care (01) | DRG 754 ==
LOC: HO.ED 04-09 19:09 → HO.PADLT16 04-09 19:11
PROVIDERS: Admitting Provider Registered Nurse; Emergency Provider Emergency Medicine; Visit Provider Psychiatry & Neurology Psychiatry
DX: F32.9 Major depressive disorder, single episode, unspecified (principal); R45.851 Suicidal ideations; T39.1X1A Poisoning by 4-Aminophenol derivatives, accidental (unintentional), initial encounter; Y92.9 Unspecified place or not applicable; F43.10 Post-traumatic stress disorder, unspecified; F90.9 Attention-deficit hyperactivity disorder, unspecified type; Z20.822 Contact with and (suspected) exposure to COVID-19; Z79.899 Other long term (current) drug therapy
CPT/HCPCS: 36415; 80048; 80061; 80076; 80143; 80179; 80307; 81003; 82607; 82746; 83036; 83690; 83735; 84439; 84443; 85025; 85610; 85730; 87635; 93005; 99285; J2405

== ENCOUNTER 2021-05-15 15:45 | Emergency (ER) | payer OTHER, SELFPAY ==
[2021-05-15 16:46] VITALS: BP 139/77; PULSE 91; RESP 16; TEMP 37.1; O2SAT 99; BMI 30.4
[2021-05-15 18:26] VITALS: BP 140/75; PULSE 89; RESP 16; TEMP 37.1; O2SAT 98
--- NOTE | 2021-05-15 18:27 | ED_ITS ---
HPI - Psych General Chief Complaint: Psychiatric Symptoms Stated Complaint: suicidal thoughts, hallucinations, SI Time Seen by Provider: 05/16/21 00:16 Source: patient Mode of arrival: ambulatory Limitations: no limitations History of Present Illness HPI Narrative: 20-YEAR-OLD MALE WITH PMH OF Depression, Anxiety, adn schizoaffective disorder TO ED FOR AUDITORY HALLUCINATIONS AND SUICIDAL THOUGHTS. PATIENT STATES having auditory lesions for the past 2 years, but since May 11 of this month which is the anniversary of his father's the auditory hallucination has become stronger and tell him to kill himself. Patient states [place] Patient last suicide attempt was couple months ago and was by overdosing over Tylenol. Patient admits to being co mpliant on medication for his psych issues but states they have not been affective. Related Data Home Medications Medication Instructions Recorded Confirmed duloxetine 30 mg capsule,delayed 3 cap PO QAM 04/07/21 05/15/21 release olanzapine 15 mg tablet 1 tab PO BEDTIME 04/07/21 05/15/21 testosterone cypionate 200 mg/mL 0.5 ml SUBCUT CAMILO 04/07/21 05/15/21 intramuscular oil Previous Rx's Medication Instructions Recorded dextroamphetamine-amphetamine ER 5 15 mg PO DAILY@1100 30 Days #90 cap 04/12/21 mg 24hr capsule,extend release trazodone 50 mg tablet 50 mg PO BEDTIME PRN 30 Days #30 04/12/21 tab Allergies Allergy/AdvReac Type Severity Reaction Status Date / Time Albuterol Allergy Unknown Unknown Uncoded 04/10/21 00:46 Flovent HFA Allergy Unknown Unknown Uncoded 04/10/21 00:46 Review of Systems Review of Systems: Auditory hallucinations and suicidal ideation with plan Yes all other systems are reviewed and are negative PMFSH Past Medical History Medical History Acetaminophen overdose ADHD Anxiety Anxiety disorder, unspecified Asthma Depression Depression PTSD (post-traumatic stress disorder) Suicide attempt by acetaminophen overdose Social History Social History Household Members: Foster Family Housing: House Do you presently have visiting nurse or other home services: No Alcohol intake: current Alcohol intake frequency: holidays/special occasions only Patient Tobacco Use Status: Never used Tobacco e-Cigarette/Vaping Use: Never Used Second Hand Smoke Exposure: Yes (as a child, mom smoked) Substance Use Type: Marijuana Advance Directives: No Advance Directives Information Provided: No service: No Current occupational status: unemployed Sexual orientation: Did not discuss. Physical Exam Vital Signs: Vital Signs: Last Vital Signs Temp 98.7 F 05/15/21 18:26 Pulse 89 05/15/21 18:26 Resp 16 05/15/21 18:26 BP 140/75 H 05/15/21 18:26 Pulse Ox 98 05/15/21 18:26 BMI result Body Mass Index 30.4 Const: General: cooperative, healthy appearing, comfortable, no acute distress, well developed, alert, awake and Physically active Orientation/consciousness: patient oriented x3 HEENT: Head: Yes normal to inspection, Yes No palpable skull fracture present, Yes normocephalic and Yes atraumatic Eyes: General: appearance normal, both eyes and all related structures Neck: Neck: Yes normal visual inspection, Yes full ROM, Yes no lymphadenopathy, Yes no meningeal signs, Yes trachea midline, Yes supple, No anterior neck swelling and No tender Chest: Chest palpation & inspection: normal inspection of the chest and normal palpation of entire chest wall Resp: Effort & Inspection: normal respiratory effort and able to speak in complete sentences Auscultation: clear to auscultation bilaterally Cardio: Jugular venous distension: no JVD Heart sounds: S1 normal heart sound present and S2 normal heart sound present GI: Inspection: Yes normal to inspection and No abdominal wall ecchymosis Palpation (GI): Soft to palpation, not firm, nontender, no guarding and not rigid : General: No CVA tenderness and Yes no CVA tenderness Back/Spine/Pelvis: Back: no CVA tenderness, No CVA tenderness and No back tenderness Skin: General skin exam: no rashes or lesions noted and elasticity normal Neuro: General: patient oriented x3, gait normal, no meningeal signs and CN's II-XI intact bilaterally Extrem: General: Yes normal to inspection, Yes full ROM and Yes capillary refill normal Psych: Appearance: grossly normal, well kempt and not disheveled Course Course Course Narrative: Patient will have labs drawn and crisis consult placed. Reevaluation(s) Reevaluation #1: Patient labs are normal and been signed. Patient awaiting psych evaluation. Time: 01:25 MDM - Psych MDM Narrative Medical decision making narrative: Depression Lab Data Result diagrams: 05/15/21 18:40 05/15/21 18:40 Labs: Lab Results 05/15/21 05/15/21 05/15/21 Range/Units 18:40 18:40 18:40 WBC 11.9 H (4.8-10.8) X10*3/uL RBC 4.93 (4.60-5.80) X10*6/uL Hgb 14.6 (14.0-18.0) g/dl Hct 43.6 (42.0-52.0) % MCV 88.4 (80.0-98.0) fL MCH 29.6 (27.0-33.0) pg MCHC 33.5 (31.0-36.0) g/dl RDW 12.5 (11.0-16.0) % Plt Count 333 (160-400) X10*3/uL MPV 10.4 (9.4-12.4) fL Immature Gran % (Auto) 0.3 (0.0-0.4) % Neut % (Auto) 71.1 (45-73) % Lymph % (Auto) 18.8 L (20-40) % [place] % (Auto) 9.2 (2-11) % Eos % (Auto) 0.0 (0-4) % Baso % (Auto) 0.6 (0-2) % Lymph # (Auto) 2.3 (1.2-4.9) X10*3/uL [place] # (Auto) 1.1 (0.1-1.2) X10*3/uL Eos # (Auto) 0.0 (0.0-0.4) X10*3/uL Baso # (Auto) 0.1 (0.0-0.2) X10*3/uL Abs Immat Gran (auto) 0.03 (0.00-0.03) X10*3/uL Absolute Neuts (auto) 8.5 H (2.0-8.3) x10*3/uL Absolute Nucleated RBC 0.000 (0.0-0.012) X10*3/uL Nucleated RBC % (auto) 0.0 (0.0-0.2) /100WBC Sodium 140 (135-145) mmol/L Potassium 4.1 (3.3-5.1) mmol/L Chloride 106 (96-108) mmol/L Carbon Dioxide 24 (22-29) mmol/L Anion Gap 14 (12-20) BUN 7 L (9-16) mg/dL Creatinine 0.72 (0.5-1.4) mg/dL Estim Creat Clear Calc 177.5 Estimated GFR > 60 Random Glucose 113 (60-115) mg/dL Calcium 9.9 D (8.4-10.2) mg/dL Total Bilirubin 1.0 (0.0-1.0) mg/dL AST 29 D (5-37) U/L ALT 23 (0-40) U/L Alkaline Phosphatase 62 (39-117) U/L Total Protein 7.6 (6.5-8.0) g/dL Albumin 4.8 D (3.5-5.0) g/dL Urine Color Urine Appearance Urine pH (5.0-8.0) Ur Specific [place] (1.005-1.025) Urine Protein (NEG-TRACE) MG/DL Urine Glucose (UA) (NEG) MG/DL Urine Ketones (NEG) MG/DL Urine Blood (NEG) Urine Nitrite (NEG) Ur Leukocyte Esterase (NEG) Urine RBC (0) /HPF Urine WBC (0-4) /HPF Ur Squamous Epith Cells /LPF Urine Bacteria /LPF Urine Opiates Screen (Not Detect) Urine Fentanyl Screen (Not Detect) Ur Barbiturates Screen (Not Detect) Ur Phencyclidine Scrn (Not Detect) Ur Amphetamines Screen (Not Detect) U Benzodiazepines Scrn (Not Detect) Urine Cocaine Screen (Not Detect) U Marijuana (THC) Screen (Not Detect) Ethyl Alcohol < 10 mg/dL COVID-19 (GLADIS) (Negative) COVID-19 Clin Com 05/15/21 05/15/21 05/15/21 Range/Units 18:48 18:48 18:49 WBC (4.8-10.8) X10*3/uL RBC (4.60-5.80) X10*6/uL Hgb (14.0-18.0) g/dl Hct (42.0-52.0) % MCV (80.0-98.0) fL MCH (27.0-33.0) pg MCHC (31.0-36.0) g/dl RDW (11.0-16.0) % Plt Count (160-400) X10*3/uL MPV (9.4-12.4) fL Immature Gran % (Auto) (0.0-0.4) % Neut % (Auto) (45-73) % Lymph % (Auto) (20-40) % [place] % (Auto) (2-11) % Eos % (Auto) (0-4) % Baso % (Auto) (0-2) % Lymph # (Auto) (1.2-4.9) X10*3/uL [place] # (Auto) (0.1-1.2) X10*3/uL Eos # (Auto) (0.0-0.4) X10*3/uL Baso # (Auto) (0.0-0.2) X10*3/uL Abs Immat Gran (auto) (0.00-0.03) X10*3/uL Absolute Neuts (auto) (2.0-8.3) x10*3/uL Absolute Nucleated RBC (0.0-0.012) X10*3/uL Nucleated RBC % (auto) (0.0-0.2) /100WBC Sodium (135-145) mmol/L Potassium (3.3-5.1) mmol/L Chloride (96-108) mmol/L Carbon Dioxide (22-29) mmol/L Anion Gap (12-20) BUN (9-16) mg/dL Creatinine (0.5-1.4) mg/dL Estim Creat Clear Calc Estimated GFR Random Glucose (60-115) mg/dL Calcium (8.4-10.2) mg/dL Total Bilirubin (0.0-1.0) mg/dL AST (5-37) U/L ALT (0-40) U/L Alkaline Phosphatase (39-117) U/L Total Protein (6.5-8.0) g/dL Albumin (3.5-5.0) g/dL Urine Color YELLOW Urine Appearance CLEAR Urine pH 8.0 (5.0-8.0) Ur Specific [place] 1.015 (1.005-1.025) Urine Protein NEG (NEG-TRACE) MG/DL Urine Glucose (UA) NEG (NEG) MG/DL Urine Ketones NEG (NEG) MG/DL Urine Blood NEG (NEG) Urine Nitrite NEG (NEG) Ur Leukocyte Esterase TRACE H (NEG) Urine RBC 0 (0) /HPF Urine WBC 1-4 (0-4) /HPF Ur Squamous Epith Cells 1+ /LPF Urine Bacteria NONE /LPF Urine Opiates Screen Not Detected (Not Detect) Urine Fentanyl Screen Not Detected (Not Detect) Ur Barbiturates Screen Not Detected (Not Detect) Ur Phencyclidine Scrn Not Detected (Not Detect) Ur Amphetamines Screen Not Detected (Not Detect) U Benzodiazepines Scrn Not Detected (Not Detect) Urine Cocaine Screen Not Detected (Not Detect) U Marijuana (THC) Screen POSITIVE H (Not Detect) Ethyl Alcohol mg/dL COVID-19 (GLADIS) Negative (Negative) COVID-19 Clin Com See Note Discharge Plan Discharge Clinical Impression: Depression Patient Disposition: Still a Patient Prescriptions: No Action duloxetine 30 mg capsule,delayed release(DR/EC) 3 cap PO QAM 0RF testosterone cypionate 200 mg/mL oil 0.5 ml subcut CAMILO 0RF olanzapine 15 mg tablet 1 tab PO BEDTIME 0RF trazodone 50 mg Tablet 50 mg PO BEDTIME PRN (Reason: Insomnia) 30 Days Qty: 30 0RF dextroamphetamine-amphetamine 5 mg Capsule,Extended Release 24hr 15 mg PO DAILY@1100 30 Days Qty: 90 0RF
[2021-05-15 18:45] LABS: MANUAL DIFF FLAG NO
[2021-05-15 18:47] LABS: Basophils Absolute Auto 0.1 X10*3/uL (0.0-0.2); Basophils Percent Auto 0.6 % (0-2); Hematocrit 43.6 % (42.0-52.0); Hemoglobin 14.6 g/dl (14.0-18.0); Imm Gran Abs Auto 0.03 X10*3/uL (0.00-0.03); Imm Gran Pct Auto 0.3 % (0.0-0.4); Lymphocytes Absolute Auto 2.3 X10*3/uL (1.2-4.9); Lymphocytes Percent Auto 18.8 % (20-40); Mean Corpuscular HGB Conc 33.5 g/dl (31.0-36.0); Mean Corpuscular Hemoglobin 29.6 pg (27.0-33.0); Mean Corpuscular Volume 88.4 fL (80.0-98.0); Mean Platelet Volume 10.4 fL (9.4-12.4); Monocytes Absolute Auto 1.1 X10*3/uL (0.1-1.2); Monocytes Percent Auto 9.2 % (2-11); Neutrophils Absolute Auto 8.5 x10*3/uL (2.0-8.3); Neutrophils Percent Auto 71.1 % (45-73); Platelet Count 333 X10*3/uL (160-400); Red Blood Count 4.93 X10*6/uL (4.60-5.80); Red Cell Distribution Width 12.5 % (11.0-16.0); White Blood Count 11.9 X10*3/uL (4.8-10.8)
[2021-05-15 18:59] LABS: Ethanol < 10 mg/dL
[2021-05-15 19:03] LABS: Alanine Aminotransferase 23 U/L (0-40); Albumin Level 4.8 g/dL (3.5-5.0); Alkaline Phosphatase 62 U/L (39-117); Anion Gap 14 (12-20); Aspartate Amino Transferase 29 U/L (5-37); Blood Urea Nitrogen 7 mg/dL (9-16); Calcium 9.9 mg/dL (8.4-10.2); Carbon Dioxide 24 mmol/L (22-29); Chloride 106 mmol/L (96-108); Creatinine Clr Calc Pharmacy 177.5; Estimated Glomerular Filt Rate > 60; Glucose Random 113 mg/dL (60-115); Potassium 4.1 mmol/L (3.3-5.1); Sodium 140 mmol/L (135-145); Total Protein 7.6 g/dL (6.5-8.0)
[2021-05-15 19:03] LABS: Appearance Urine CLEAR; Color Urine YELLOW; Glucose Urine UA NEG (NEG); Leukocyte Esterase Urine TRACE (NEG); Nitrite Urine NEG (NEG); Specific Gravity - Urine 1.015 (1.005-1.025); UACC Culture Trigger YES; Urine Blood NEG (NEG); Urine Ketones NEG (NEG); Urine Protein NEG (NEG-TRACE)
[2021-05-15 19:09] LABS: RBC Urine 0 /HPF (0)
[2021-05-15 19:10] LABS: Squamous Epithelial Cell Urine 1+ /LPF
[2021-05-15 19:20] LABS: COVID-19 Test Negative (Negative); IDNOW Serial# 55D5AD1C
[2021-05-15 19:31] LABS: Amphetamine Screen Urine Not Detected (Not Detect); Barbiturates, Urine Not Detected (Not Detect); Benzodiazepines Screen Urine Not Detected (Not Detect); Cannabinoid Screen Urine POSITIVE (Not Detect); Cocaine Screen Urine Not Detected (Not Detect); Fentanyl, urine Not Detected (Not Detect); Opiate Screen Urine Not Detected (Not Detect); Phencyclidine Screen Urine Not Detected (Not Detect)
[2021-05-16 03:18] VITALS: BP 123/83; PULSE 79; RESP 20; TEMP 37.1; O2SAT 99
--- NOTE | 2021-05-16 06:04 | PC.NURSE ---
Patient has been sleeping since he came in, no distress observed/reported, BHN referral completed/confirmed pending evaluation in the morning, behavior appropriate, patient is currently not on any medication, VSS, will continue to monitor.
--- NOTE | 2021-05-16 06:07 | PC.NURSE ---
Patient stayed awake whole night, self dialoguing/responding extensively to internal stimuli, behavior non concerning, medication rec completed/MAR updated, patient is awaiting BHN evaluation in the morning, VSS, will continue to monitor.
--- NOTE | 2021-05-16 07:27 | PC.NURSE ---
patient appears to remain asleep at present respirations are even and unlabored patient appears in no distress
[2021-05-16] MEDS: Dextroamphetamine/Amphetamine XR 5 MG CAP.ER.24H 15 MG PO (11:53)
[2021-05-16] MEDS: Acetaminophen 325 MG TABLET 650 MG PO (11:53)
[2021-05-16] MEDS: DULoxetine HCl 30 MG CAPSULE.DR 90 MG PO (11:54)
[2021-05-16 18:07] VITALS: BP 130/68; PULSE 92; RESP 16; TEMP 37.2; O2SAT 99
[2021-05-16] MEDS: OLANZapine 7.5 MG TABLET 15 MG PO (20:39)
[2021-05-17 05:30] VITALS: BP 113/58; PULSE 47; RESP 15; TEMP 36.5; O2SAT 98
--- NOTE | 2021-05-17 05:44 | PC.NURSE ---
Patient slept through the night, no distress observed/reported, behavior quiet and non concerning, medication compliant, VSS, patient was assessed by care team disposition pending, will continue to monitor.
--- NOTE | 2021-05-17 07:08 | PC.NURSE ---
Care assumed at this time, report from Tavon GAMBOA. Pt sleeping at this time, resp reg and even, NAD. Waiting on re-eval from Care team at this time.
[2021-05-17 08:15] VITALS: BP 117/66; PULSE 52; RESP 13; TEMP 36.6; O2SAT 98
[2021-05-17] MEDS: DULoxetine HCl 30 MG CAPSULE.DR 90 MG PO (10:14)
[2021-05-17] MEDS: Dextroamphetamine/Amphetamine XR 5 MG CAP.ER.24H 15 MG PO (10:15)
--- NOTE | 2021-05-17 14:51 | MHC.CARE ---
Pt was advised he was accepted to [facility]. He was advised about it's location in the [facility]. Pt was in agreement with his departure to that facility.
--- NOTE | 2021-05-17 15:18 | PC.NURSE ---
Report given to Avery at [facility]
[2021-05-17 16:57] VITALS: BP 145/84; PULSE 86; RESP 18; TEMP 37.3; O2SAT 99
== END 2021-05-17 20:31 ==
PROVIDERS: Physician Assistant; Emergency Provider Internal Medicine
DX: F32.A Depression, unspecified (principal); R45.851 Suicidal ideations; Z20.822 Contact with and (suspected) exposure to COVID-19; F41.9 Anxiety disorder, unspecified; F25.1 Schizoaffective disorder, depressive type; F43.10 Post-traumatic stress disorder, unspecified; F90.9 Attention-deficit hyperactivity disorder, unspecified type; F12.90 Cannabis use, unspecified, uncomplicated; Z91.51 Personal history of suicidal behavior; Z79.899 Other long term (current) drug therapy
CPT/HCPCS: 36415; 80053; 80307; 81001; 81003; 82077; 85025; 87086; 87635; 99285

== ENCOUNTER 2021-07-29 18:33 | Emergency (ER) | payer OTHER, SELFPAY ==
[2021-07-29 19:03] VITALS: BP 108/58; PULSE 77; RESP 18; TEMP 36.4; O2SAT 96; BMI 27.4
--- NOTE | 2021-07-29 20:04 | PHA.MEDREC ---
Pharmacy Consult ? Medication Reconciliation Pharmacy has completed the medication reconciliation.
[2021-07-29 20:15] LABS: COVID-19 Test Negative (Negative); IDNOW Serial# 9DB6401D
[2021-07-29 20:15] LABS: Amphetamine Screen Urine Not Detected (Not Detect); Barbiturates, Urine Not Detected (Not Detect); Benzodiazepines Screen Urine Not Detected (Not Detect); Cannabinoid Screen Urine POSITIVE (Not Detect); Cocaine Screen Urine Not Detected (Not Detect); Fentanyl, urine Not Detected (Not Detect); Opiate Screen Urine Not Detected (Not Detect); Phencyclidine Screen Urine Not Detected (Not Detect)
--- NOTE | 2021-07-30 00:05 | ED_ITS ---
HPI - Psych General Chief Complaint: Psychiatric Symptoms Stated Complaint: psyche symptoms /SI Time Seen by Provider: 07/30/21 00:05 History of Present Illness HPI Narrative: Patient is a 20-year-old male hearing voices. Unable to the tell us what the voices telling him. He denies any suicidal homicidal ideation. He did use marijuana. Came in for further evaluation. Has a long history of depression. Related Data Home Medications Medication Instructions Recorded Confirmed duloxetine 30 mg capsule,delayed 90 mg PO QAM 04/07/21 07/29/21 release olanzapine 5 mg tablet 5 mg PO QAM 07/29/21 07/29/21 paliperidone 6 mg tablet,extended 6 mg PO QAM 07/29/21 07/29/21 release 24 hr quetiapine 50 mg tablet 50 mg PO BEDTIME 07/29/21 07/29/21 Allergies Allergy/AdvReac Type Severity Reaction Status Date / Time Albuterol Allergy Unknown Unknown Uncoded 04/10/21 00:46 Flovent HFA Allergy Unknown Unknown Uncoded 04/10/21 00:46 Review of Systems Review of Systems: No fever no chills Yes all other systems are reviewed and are negative [facility] Past Medical History Attestation statement: The following information was validated with the patient. Medical History Acetaminophen overdose ADHD Anxiety Anxiety disorder, unspecified Asthma Depression Depression PTSD (post-traumatic stress disorder) Suicide attempt by acetaminophen overdose Social History Social History Household Members: Foster Family Housing: House Do you presently have visiting nurse or other home services: No Alcohol intake: current Alcohol intake frequency: holidays/special occasions only Patient Tobacco Use Status: Never used Tobacco e-Cigarette/Vaping Use: Never Used Second Hand Smoke Exposure: Yes (as a child, mom smoked) Substance Use Type: Marijuana Advance Directives: No Advance Directives Information Provided: Yes service: No Current occupational status: unemployed Sexual orientation: Did not discuss. Physical Exam Vital Signs: Vital Signs: Last Vital Signs Temp 97.7 F 07/30/21 02:14 Pulse 73 07/30/21 02:14 Resp 17 07/30/21 02:14 BP 112/62 07/30/21 02:14 Pulse Ox 97 07/30/21 02:14 BMI result Body Mass Index 27.4 Appearance: Alert. Oriented X3. No acute distress. Eyes: Pupils equal, round and reactive to light. ENT: Pharynx normal. Neck: Normal inspection. Neck supple. No lymph nodes noted. No crepitus CVS: Normal heart rate and rhythm. Pulses normal. Normal S1 and S2 Respiratory: No respiratory distress. Breath sounds normal. No Wheezing. No rales Abdomen: Soft and nontender. No rigidity. No distention. good BS x4 Skin: Skin warm and dry. Normal skin color. Normal skin turgor. Extremities: No lower extremity edema. Neurovascular intact to all extremities. No Lacerations. No Rash Neuro: Oriented X 3. No motor deficit. No sensory deficit. Moving all extermities. No slurred speech. Cranial nerves grossly intact MDM - Psych MDM Narrative Medical decision making narrative: Patient evaluated by BHN. Will discuss patient's case with mom in the morning. Most likely will discharge patient home. Currently in stable condition. Patient no longer suicidal. He is currently in stable condition Medical Records Attestation: I reviewed the patient's medical records. Lab Data Labs: Lab Results 07/29/21 07/29/21 Range/Units 19:47 19:48 Urine Opiates Screen Not Detected (Not Detect) Urine Fentanyl Screen Not Detected (Not Detect) Ur Barbiturates Screen Not Detected (Not Detect) Ur Phencyclidine Scrn Not Detected (Not Detect) Ur Amphetamines Screen Not Detected (Not Detect) U Benzodiazepines Scrn Not Detected (Not Detect) Urine Cocaine Screen Not Detected (Not Detect) U Marijuana (THC) Screen POSITIVE H (Not Detect) COVID-19 (GLADIS) Negative (Negative) COVID-19 Clin Com See Note Discharge Plan Discharge Clinical Impression: Major depression Patient Disposition: Still a Patient Prescriptions: No Action duloxetine 30 mg capsule,delayed release(DR/EC) 90 mg PO QAM 0RF olanzapine 5 mg tablet 5 mg PO QAM 0RF quetiapine 50 mg tablet 50 mg PO BEDTIME 0RF paliperidone 6 mg tablet extended release 24 hr 6 mg PO QAM 0RF
[2021-07-30 02:14] VITALS: BP 112/62; PULSE 73; RESP 17; TEMP 36.5; O2SAT 97
--- NOTE | 2021-07-30 06:05 | PC.NURSE ---
patient slept through the night, no distress observed/reported, patient was assessed by BHN, disposition PHP provider and patient agreement with plan, patient's mother will come pick him up in the morning, behavior appropriate, VSS, will continue to monitor.
--- NOTE | 2021-07-30 07:51 | PC.NURSE ---
patient appears to remain at rest at present respirations ar even and unlabored patient appears in no distress
[2021-07-30] MEDS: Ondansetron ODT 4 MG TAB.RAPDIS TRANSLINGU (08:10)
== END 2021-07-30 11:35 | disposition home or self-care (01) ==
PROVIDERS: Emergency Provider Emergency Medicine Emergency Medical Services
DX: F32.9 Major depressive disorder, single episode, unspecified (principal); R45.851 Suicidal ideations; Z20.822 Contact with and (suspected) exposure to COVID-19; F25.1 Schizoaffective disorder, depressive type; F43.10 Post-traumatic stress disorder, unspecified; F90.9 Attention-deficit hyperactivity disorder, unspecified type; Z79.899 Other long term (current) drug therapy
CPT/HCPCS: 80307; 87635; 99284

== ENCOUNTER 2021-08-16 21:15 | Emergency (ER) | payer OTHER, SELFPAY ==
[2021-08-16 21:34] VITALS: BP 131/79; PULSE 72; RESP 16; TEMP 36.5; O2SAT 99; BMI 27.6
--- NOTE | 2021-08-16 21:38 | ECG_ITS ---
Test Reason : ABNOMINAL PAIN Blood Pressure : / mmHG Vent. Rate : 073 BPM Atrial Rate : 073 BPM P-R Int : 220 ms QRS Dur : 092 ms QT Int : 414 ms P-R-T Axes : 041 050 020 degrees QTc Int : 456 ms Sinus rhythm with 1st degree A-V block Possible Left atrial enlargement Borderline ECG When compared with ECG of 07-APR-2021 19:03, No significant change was found Referred By: Edel Kinsey Electronically Signed By:KRISTI MAYORGA MD
--- NOTE | 2021-08-16 21:40 | ED.PSYCH ---
HPI - Psych General Chief Complaint: Psychiatric Symptoms Stated Complaint: overdose on Tylenol Time Seen by Provider: 08/16/21 21:21 Source: patient Mode of arrival: ambulatory Limitations: no limitations History of Present Illness HPI Narrative: patient came to the emergency room complaining of suicidal attempt. Patient states that approximate 7-1/2 hours ago, patient ingested over 50 tablets of Tylenol and a handful of ibuprofen, mixed it with alcohol. Patient states that he has tried to commit suicide in the past. Patient states that he has been having problems with his mother due to his psychiatric history and suicidal ideation. Today, patient got kicked out of his house. Patient Went to work today, then came to the emergency room complaining of nausea. Patient states that he takes several medications for his psychiatric conditions, he did not take any additional doses of his meds. Furthermore, patient states that he hears voices, states that he talks to God and the [employer] Related Data Home Medications Medication Instructions Recorded Confirmed duloxetine 30 mg capsule,delayed 90 mg PO QAM 04/07/21 07/29/21 release olanzapine 5 mg tablet 5 mg PO QAM 07/29/21 07/29/21 paliperidone 6 mg tablet,extended 6 mg PO QAM 07/29/21 07/29/21 release 24 hr quetiapine 50 mg tablet 50 mg PO BEDTIME 07/29/21 07/29/21 Allergies Allergy/AdvReac Type Severity Reaction Status Date / Time Albuterol Allergy Unknown Unknown Uncoded 04/10/21 00:46 Flovent HFA Allergy Unknown Unknown Uncoded 04/10/21 00:46 Review of Systems Review of Systems: Constitutional : No Weight loss, No Fever, No Chills, No Night Sweats, No Fatigue, No Malaise ENT/Mouth : No Hearing loss, No Ear Pain, No Nasal Congestion, No Sinus Pain, No Hoarseness, No sore throat, No Rhinorrhea, No Swallowing Difficulty Eyes: No Eye Pain, No Swelling, No Redness, No Foreign Body, No Discharge, No Vision Changes Cardiovascular : No Chest Pain, No SOB, No Dyspnea on Exertion, No Orthopnea, No Edema, No Palpitations Respiratory : No Cough, No Sputum, No Wheezing, No Smoke Exposure, No Dyspnea Gastrointestinal : complaining of Nausea, No Vomiting, No Diarrhea, No Constipation, No abdominal Pain, No Hematochezia, No Melena Genitourinary : no irregular bleeding, No Dysuria, No Urinary Frequency, No Hematuria, No Urinary Incontinence, No Urgency, No Flank Pain, No Urinary Flow Changes, No Hesitancy Musculoskeletal : No joint pain, No Myalgias, No Joint Swelling Skin : No Skin Lesions, No rash Neuro : No Weakness, No Numbness, No Paresthesias, No Loss of Consciousness, No Dizziness, No Headache Psych : complaining of depression, suicide attempt this afternoon, no homicidal ideation, patient was kicked out of his house by his mother today Heme/Lymph: No Bruising, No Bleeding,No Lymphadenopathy Endocrine : No Polyuria, No Polydipsia, No Temperature Intolerance [facility] Past Medical History Medical History Acetaminophen overdose Anxiety Anxiety disorder, unspecified Asthma Depression Depression PTSD (post-traumatic stress disorder) Suicide attempt by acetaminophen overdose Social History Social History Household Members: Foster Family Housing: House Do you presently have visiting nurse or other home services: No Alcohol intake: current Alcohol intake frequency: holidays/special occasions only Patient Tobacco Use Status: Never used Tobacco e-Cigarette/Vaping Use: Never Used Second Hand Smoke Exposure: Yes (as a child, mom smoked) Substance Use Type: Marijuana Advance Directives: No Advance Directives Information Provided: Yes service: No Current occupational status: unemployed Sexual orientation: Did not discuss. Physical Exam Vital Signs: Vital Signs: Last Vital Signs Temp 97.7 F 08/16/21 21:34 Pulse 72 08/16/21 21:34 Resp 16 08/16/21 21:34 BP 131/79 08/16/21 21:34 Pulse Ox 99 08/16/21 21:34 O2 Del Method 08/16/21 21:34 BMI result Body Mass Index 27.6 Const: Other: Appearance: Alert. Oriented X3. No acute distress. well-appearing Eyes: Pupils equal, round and reactive to light. ENT: Pharynx normal. Neck: Normal inspection. Neck supple. No lymph nodes noted. No crepitus CVS: Normal heart rate and rhythm. Pulses normal. Normal S1 and S2 Respiratory: No respiratory distress. Breath sounds normal. No Wheezing. No rales Abdomen: Soft and nontender. No rigidity. No distention. Skin: Skin warm and dry. Normal skin color. Normal skin turgor. Extremities: No lower extremity edema. No Lacerations. No Rash Neuro: Oriented X 3. No motor deficit. No sensory deficit. Moving all extremities. No slurred speech. CN 2 through 12 grossly intact Psych: calm, cooperative, normal affect, coherent Course Course Course Narrative: patient has has been here before for suicide attempt with acetaminophen. The last time he was here on 10/19/2020, the APAP level was below the treatment threshold however poison Control recommended treatment. At this time, patient is well appearing, vitals are stable. Other labs are pending. patient is on a Section 12 I discussed with the patient that his LFTs and Tylenol levels are pretty much negative. Patient confesses that he did not take Tylenol. Patient states he took trazodone. Then I confronted the patient that when he came in he said specifically that he did not take any of his psychiatric medications. Then he started crying, states that he does not know what he took, he may not have taking anything. Patient crying that he is schizophrenic. That he is homeless, Still stating that he is suicidal. Overall, does not seem that patient took any medications. Patient's story keeps changing his story. physician observation started that 23:30 [facility] - Psych Lab Data Result diagrams: 08/16/21 22:04 08/16/21 22:04 Labs: Lab Results 08/16/21 08/16/21 08/16/21 Range/Units 22:03 22:03 22:04 WBC 9.0 (4.8-10.8) X10*3/uL RBC 4.37 L (4.60-5.80) X10*6/uL Hgb 13.0 L (14.0-18.0) g/dl Hct 38.8 L (42.0-52.0) % MCV 88.8 (80.0-98.0) fL MCH 29.7 (27.0-33.0) pg MCHC 33.5 (31.0-36.0) g/dl RDW 12.5 (11.0-16.0) % Plt Count 280 (160-400) X10*3/uL MPV 10.7 (9.4-12.4) fL Immature Gran % (Auto) 0.2 (0.0-0.4) % Neut % (Auto) 68.6 (45-73) % Lymph % (Auto) 23.1 (20-40) % [place] % (Auto) 7.3 (2-11) % Eos % (Auto) 0.2 (0-4) % Baso % (Auto) 0.6 (0-2) % Lymph # (Auto) 2.1 (1.2-4.9) X10*3/uL [place] # (Auto) 0.7 (0.1-1.2) X10*3/uL Eos # (Auto) 0.0 (0.0-0.4) X10*3/uL Baso # (Auto) 0.1 (0.0-0.2) X10*3/uL Abs Immat Gran (auto) 0.02 (0.00-0.03) X10*3/uL Absolute Neuts (auto) 6.2 (2.0-8.3) x10*3/uL Absolute Nucleated RBC 0.000 (0.0-0.012) X10*3/uL Nucleated RBC % (auto) 0.0 (0.0-0.2) /100WBC VBG pH (7.32-7.43) VBG pCO2 mmHg VBG pO2 mmHg VBG HCO3 (22-26) mmol/L VBG O2 Saturation % VBG Base Excess mmol/L Sodium (135-145) mmol/L Potassium (3.3-5.1) mmol/L Chloride (96-108) mmol/L Carbon Dioxide (22-29) mmol/L Anion Gap (12-20) BUN (9-16) mg/dL Creatinine (0.5-1.4) mg/dL Estim Creat Clear Calc Estimated GFR Random Glucose (60-115) mg/dL Lactic Acid 0.9 (0.5-2.0) mmol/L Calcium (8.4-10.2) mg/dL Magnesium (1.6-2.6) mg/dL Total Bilirubin (0.0-1.0) mg/dL Direct Bilirubin (0.0-0.5) mg/dL AST (5-37) U/L ALT (0-40) U/L Alkaline Phosphatase (39-117) U/L Ammonia 25 (13-55) umol/L Troponin I High Sens (<3.5-35.0) ng/L Total Protein (6.5-8.0) g/dL Albumin (3.5-5.0) g/dL Lipase (8-78) U/L Salicylates (15-30) mg/dL Urine Opiates Screen (Not Detect) Urine Fentanyl Screen (Not Detect) Acetaminophen (<30) mcg/mL Ur Barbiturates Screen (Not Detect) Ur Phencyclidine Scrn (Not Detect) Ur Amphetamines Screen (Not Detect) U Benzodiazepines Scrn (Not Detect) Urine Cocaine Screen (Not Detect) U Marijuana (THC) Screen (Not Detect) Ethyl Alcohol mg/dL COVID-19 (GLADIS) (Negative) COVID-19 Clin Com 08/16/21 08/16/21 08/16/21 Range/Units 22:04 22:04 22:04 WBC (4.8-10.8) X10*3/uL RBC (4.60-5.80) X10*6/uL Hgb (14.0-18.0) g/dl Hct (42.0-52.0) % MCV (80.0-98.0) fL MCH (27.0-33.0) pg MCHC (31.0-36.0) g/dl RDW (11.0-16.0) % Plt Count (160-400) X10*3/uL MPV (9.4-12.4) fL Immature Gran % (Auto) (0.0-0.4) % Neut % (Auto) (45-73) % Lymph % (Auto) (20-40) % [place] % (Auto) (2-11) % Eos % (Auto) (0-4) % Baso % (Auto) (0-2) % Lymph # (Auto) (1.2-4.9) X10*3/uL [place] # (Auto) (0.1-1.2) X10*3/uL Eos # (Auto) (0.0-0.4) X10*3/uL Baso # (Auto) (0.0-0.2) X10*3/uL Abs Immat Gran (auto) (0.00-0.03) X10*3/uL Absolute Neuts (auto) (2.0-8.3) x10*3/uL Absolute Nucleated RBC (0.0-0.012) X10*3/uL Nucleated RBC % (auto) (0.0-0.2) /100WBC VBG pH (7.32-7.43) VBG pCO2 mmHg VBG pO2 mmHg VBG HCO3 (22-26) mmol/L VBG O2 Saturation % VBG Base Excess mmol/L Sodium 138 (135-145) mmol/L Potassium 3.5 (3.3-5.1) mmol/L Chloride 105 (96-108) mmol/L Carbon Dioxide 22 (22-29) mmol/L Anion Gap 15 (12-20) BUN 10 (9-16) mg/dL Creatinine 0.66 (0.5-1.4) mg/dL Estim Creat Clear Calc 185.4 Estimated GFR > 60 Random Glucose 95 (60-115) mg/dL Lactic Acid (0.5-2.0) mmol/L Calcium 9.4 (8.4-10.2) mg/dL Magnesium 2.0 (1.6-2.6) mg/dL Total Bilirubin 2.2 H (0.0-1.0) mg/dL Direct Bilirubin 0.7 H (0.0-0.5) mg/dL AST 17 D (5-37) U/L ALT 14 (0-40) U/L Alkaline Phosphatase 58 (39-117) U/L Ammonia (13-55) umol/L Troponin I High Sens < 3.5 (<3.5-35.0) ng/L Total Protein 7.6 (6.5-8.0) g/dL Albumin 4.8 (3.5-5.0) g/dL Lipase 7 L (8-78) U/L Salicylates < 5.0 L (15-30) mg/dL Urine Opiates Screen (Not Detect) Urine Fentanyl Screen (Not Detect) Acetaminophen < 1 (<30) mcg/mL Ur Barbiturates Screen (Not Detect) Ur Phencyclidine Scrn (Not Detect) Ur Amphetamines Screen (Not Detect) U Benzodiazepines Scrn (Not Detect) Urine Cocaine Screen (Not Detect) U Marijuana (THC) Screen (Not Detect) Ethyl Alcohol mg/dL COVID-19 ([facility]) Negative (Negative) COVID-19 Clin Com See Note 08/16/21 08/16/21 08/16/21 Range/Units 22:04 22:09 22:15 WBC (4.8-10.8) X10*3/uL RBC (4.60-5.80) X10*6/uL Hgb (14.0-18.0) g/dl Hct (42.0-52.0) % MCV (80.0-98.0) fL MCH (27.0-33.0) pg MCHC (31.0-36.0) g/dl RDW (11.0-16.0) % Plt Count (160-400) X10*3/uL MPV (9.4-12.4) fL Immature Gran % (Auto) (0.0-0.4) % Neut % (Auto) (45-73) % Lymph % (Auto) (20-40) % [place] % (Auto) (2-11) % Eos % (Auto) (0-4) % Baso % (Auto) (0-2) % Lymph # (Auto) (1.2-4.9) X10*3/uL [place] # (Auto) (0.1-1.2) X10*3/uL Eos # (Auto) (0.0-0.4) X10*3/uL Baso # (Auto) (0.0-0.2) X10*3/uL Abs Immat Gran (auto) (0.00-0.03) X10*3/uL Absolute Neuts (auto) (2.0-8.3) x10*3/uL Absolute Nucleated RBC (0.0-0.012) X10*3/uL Nucleated RBC % (auto) (0.0-0.2) /100WBC VBG pH 7.37 (7.32-7.43) VBG pCO2 34 mmHg VBG pO2 67 mmHg VBG HCO3 20 L (22-26) mmol/L VBG O2 Saturation 91.0 % VBG Base Excess -4.0 mmol/L Sodium (135-145) mmol/L Potassium (3.3-5.1) mmol/L Chloride (96-108) mmol/L Carbon Dioxide (22-29) mmol/L Anion Gap (12-20) BUN (9-16) mg/dL Creatinine (0.5-1.4) mg/dL Estim Creat Clear Calc Estimated GFR Random Glucose (60-115) mg/dL Lactic Acid (0.5-2.0) mmol/L Calcium (8.4-10.2) mg/dL Magnesium (1.6-2.6) mg/dL Total Bilirubin (0.0-1.0) mg/dL Direct Bilirubin (0.0-0.5) mg/dL AST (5-37) U/L ALT (0-40) U/L Alkaline Phosphatase (39-117) U/L Ammonia (13-55) umol/L Troponin I High Sens (<3.5-35.0) ng/L Total Protein (6.5-8.0) g/dL Albumin (3.5-5.0) g/dL Lipase (8-78) U/L Salicylates (15-30) mg/dL Urine Opiates Screen Not Detected (Not Detect) Urine Fentanyl Screen Not Detected (Not Detect) Acetaminophen (<30) mcg/mL Ur Barbiturates Screen Not Detected (Not Detect) Ur Phencyclidine Scrn Not Detected (Not Detect) Ur Amphetamines Screen Not Detected (Not Detect) U Benzodiazepines Scrn Not Detected (Not Detect) Urine Cocaine Screen Not Detected (Not Detect) U Marijuana (THC) Screen POSITIVE H (Not Detect) Ethyl Alcohol < 10 mg/dL COVID-19 ([facility]) (Negative) COVID-19 Clin Com Discharge Plan Discharge Clinical Impression: Major depression, Suicide attempt Patient Disposition: Still a Patient Prescriptions: No Action duloxetine 30 mg capsule,delayed release(DR/EC) 90 mg PO QAM olanzapine 5 mg tablet 5 mg PO QAM quetiapine 50 mg tablet 50 mg PO BEDTIME paliperidone 6 mg tablet extended release 24 hr 6 mg PO QAM
[2021-08-16] MEDS: 0.9 % Sodium Chloride 1,000 ML 999 ML IVCONT (22:05)
[2021-08-16 22:10] LABS: MANUAL DIFF FLAG NO
[2021-08-16 22:13] LABS: Venous Blood Gas Refer to POC result
[2021-08-16 22:13] LABS: Basophils Absolute Auto 0.1 X10*3/uL (0.0-0.2); Basophils Percent Auto 0.6 % (0-2); Eosinophils Percent Auto 0.2 % (0-4); Hematocrit 38.8 % (42.0-52.0); Imm Gran Abs Auto 0.02 X10*3/uL (0.00-0.03); Imm Gran Pct Auto 0.2 % (0.0-0.4); Lymphocytes Absolute Auto 2.1 X10*3/uL (1.2-4.9); Lymphocytes Percent Auto 23.1 % (20-40); Mean Corpuscular HGB Conc 33.5 g/dl (31.0-36.0); Mean Corpuscular Hemoglobin 29.7 pg (27.0-33.0); Mean Corpuscular Volume 88.8 fL (80.0-98.0); Mean Platelet Volume 10.7 fL (9.4-12.4); Monocytes Absolute Auto 0.7 X10*3/uL (0.1-1.2); Monocytes Percent Auto 7.3 % (2-11); Neutrophils Absolute Auto 6.2 x10*3/uL (2.0-8.3); Neutrophils Percent Auto 68.6 % (45-73); Platelet Count 280 X10*3/uL (160-400); Red Blood Count 4.37 X10*6/uL (4.60-5.80); Red Cell Distribution Width 12.5 % (11.0-16.0)
[2021-08-16] MEDS: Ondansetron ODT 4 MG TAB.RAPDIS TRANSLINGU (22:13)
[2021-08-16 22:14] LABS: VBG HCO3 20 mmol/L (22-26); VBG pCO2 34 mmHg; VBG pH 7.37 (7.32-7.43); VBG pO2 67 mmHg
[2021-08-16 22:24] LABS: Lactic Acid 0.9 mmol/L (0.5-2.0)
[2021-08-16 22:26] LABS: COVID-19 Test Negative (Negative); Ethanol < 10 mg/dL
[2021-08-16 22:31] LABS: Alanine Aminotransferase 14 U/L (0-40); Albumin Level 4.8 g/dL (3.5-5.0); Alkaline Phosphatase 58 U/L (39-117); Anion Gap 15 (12-20); Aspartate Amino Transferase 17 U/L (5-37); Bilirubin Direct 0.7 mg/dL (0.0-0.5); Bilirubin Total 2.2 mg/dL (0.0-1.0); Blood Urea Nitrogen 10 mg/dL (9-16); Calcium 9.4 mg/dL (8.4-10.2); Carbon Dioxide 22 mmol/L (22-29); Chloride 105 mmol/L (96-108); Creatinine Clr Calc Pharmacy 185.4; Estimated Glomerular Filt Rate > 60; Glucose Random 95 mg/dL (60-115); Lipase 7 U/L (8-78); Potassium 3.5 mmol/L (3.3-5.1); Sodium 138 mmol/L (135-145); Total Protein 7.6 g/dL (6.5-8.0)
[2021-08-16 22:33] LABS: Troponin-I High Sensitivity < 3.5 ng/L (<3.5-35.0)
[2021-08-16 22:45] LABS: Ammonia 25 umol/L (13-55)
[2021-08-16 22:58] LABS: Acetaminophen LAB < 1 mcg/mL (<30); Salicylate < 5.0 mg/dL (15-30)
[2021-08-16 23:21] LABS: Amphetamine Screen Urine Not Detected (Not Detect); Barbiturates, Urine Not Detected (Not Detect); Benzodiazepines Screen Urine Not Detected (Not Detect); Cannabinoid Screen Urine POSITIVE (Not Detect); Cocaine Screen Urine Not Detected (Not Detect); Fentanyl, urine Not Detected (Not Detect); Opiate Screen Urine Not Detected (Not Detect); Phencyclidine Screen Urine Not Detected (Not Detect)
[2021-08-17] VITALS: BP 133/65; PULSE 72; RESP 16; TEMP 37.1; O2SAT 97
[2021-08-17 00:42] LABS: Appearance Urine CLEAR; Color Urine YELLOW; Glucose Urine UA NEG (NEG); Leukocyte Esterase Urine NEG (NEG); Nitrite Urine NEG (NEG); Specific Gravity - Urine 1.025 (1.005-1.025); Urine Blood NEG (NEG); Urine Ketones 40 MG/DL (NEG); Urine Protein NEG (NEG-TRACE)
[2021-08-17 02:00] VITALS: BP 133/78; PULSE 72; RESP 16; TEMP 36.9; O2SAT 97
--- NOTE | 2021-08-17 06:03 | PC.NURSE ---
Med Rec and BHN eval complete.
[2021-08-17 06:20] VITALS: BP 124/63; PULSE 78; RESP 16; TEMP 37.1; O2SAT 97
--- NOTE | 2021-08-17 06:28 | PC.NURSE ---
IV line removed, patient transferred to POD room 3.
--- NOTE | 2021-08-17 06:41 | PC.NURSE ---
Patient just got transferred main ED, independent ambulation, BHN called spoke with Ahsan, confirmed receipt of referral, pending ETA at AM, med rec completed/pending ETA, VSS, behavior appropriate, medically cleared per report, will continue to monitor.
--- NOTE | 2021-08-17 07:30 | PC.NURSE ---
PT C/O NAUSEA. WILL GET ORDER FOR ZOFRAN
[2021-08-17] MEDS: Ondansetron ODT 4 MG TAB.RAPDIS TRANSLINGU (07:45)
--- NOTE | 2021-08-17 08:16 | PC.NURSE ---
PT SLEEPING. NAUSEA BETTER
== END 2021-08-17 11:14 ==
PROVIDERS: Emergency Provider Emergency Medicine; PCP Internal Medicine
DX: Z03.6 Encounter for observation for suspected toxic effect from ingested substance ruled out (principal); F33.9 Major depressive disorder, recurrent, unspecified; F41.9 Anxiety disorder, unspecified; F43.10 Post-traumatic stress disorder, unspecified; J45.909 Unspecified asthma, uncomplicated; Z20.822 Contact with and (suspected) exposure to COVID-19
CPT/HCPCS: 36415; 80048; 80076; 80143; 80179; 80307; 81003; 82077; 82140; 82803; 83605; 83690; 83735; 84484; 85025; 87635; 93005; 96360; 99285

== ENCOUNTER 2021-08-21 13:26 | Outpatient (REF) | payer OTHER, SELFPAY ==
[2021-08-21 14:42] LABS: Alanine Aminotransferase 12 U/L (0-40); Albumin Level 4.7 g/dL (3.5-5.0); Alkaline Phosphatase 51 U/L (39-117); Anion Gap 14 (12-20); Aspartate Amino Transferase 13 U/L (5-37); Bilirubin Total 1.5 mg/dL (0.0-1.0); Blood Urea Nitrogen 7 mg/dL (9-16); Calcium 9.3 mg/dL (8.4-10.2); Carbon Dioxide 22 mmol/L (22-29); Chloride 109 mmol/L (96-108); Estimated Glomerular Filt Rate > 60; Glucose Random 117 mg/dL (60-115); Potassium 4.5 mmol/L (3.3-5.1); Sodium 140 mmol/L (135-145); Total Protein 7.4 g/dL (6.5-8.0)
[2021-08-21 15:05] LABS: Thyroid Stimulating Hormone 0.28 uIU/mL (0.32-4.0)
== END 2021-08-21 13:27 | disposition home or self-care (01) ==
LOC: HO.LAB 13:26
PROVIDERS: PCP Physician Assistant; Visit Provider Nurse Practitioner Psychiatric/Mental Health
DX: Z79.899 Other long term (current) drug therapy (principal)
CPT/HCPCS: 36415; 80053; 84436; 84443

== ENCOUNTER 2021-09-07 09:26 | Outpatient (REF) | payer OTHER, SELFPAY ==
[2021-09-07 11:35] LABS: Lithium 0.43 mmol/L (0.60-1.20)
[2021-09-07 11:37] LABS: Alanine Aminotransferase 21 U/L (0-40); Albumin Level 4.6 g/dL (3.5-5.0); Alkaline Phosphatase 52 U/L (39-117); Anion Gap 14 (12-20); Aspartate Amino Transferase 15 U/L (5-37); Bilirubin Total 1.3 mg/dL (0.0-1.0); Blood Urea Nitrogen 13 mg/dL (9-16); Calcium 9.6 mg/dL (8.4-10.2); Carbon Dioxide 24 mmol/L (22-29); Chloride 106 mmol/L (96-108); Estimated Glomerular Filt Rate > 60; Glucose Random 73 mg/dL (60-115); Potassium 4.6 mmol/L (3.3-5.1); Sodium 139 mmol/L (135-145); Total Protein 7.2 g/dL (6.5-8.0)
[2021-09-07 11:40] LABS: Free T4 (Free Thyroxine) 0.91 ng/dL (0.71-1.85); Thyroid Stimulating Hormone 1.28 uIU/mL (0.32-4.0)
== END 2021-09-07 09:27 | disposition home or self-care (01) ==
LOC: HO.LAB 09:26
PROVIDERS: PCP Physician Assistant; Visit Provider Nurse Practitioner Psychiatric/Mental Health
DX: Z79.899 Other long term (current) drug therapy (principal)
CPT/HCPCS: 36415; 80053; 80178; 84439; 84443

== ENCOUNTER 2023-08-09 15:42 | Inpatient (IN) | payer OTHER, SELFPAY ==
--- NOTE | 2023-08-09 | ECG_ITS ---
Test Reason : CHEST PAIN Blood Pressure : / mmHG Vent. Rate : 105 BPM Atrial Rate : 105 BPM P-R Int : 196 ms QRS Dur : 082 ms QT Int : 328 ms P-R-T Axes : 033 043 014 degrees QTc Int : 433 ms Sinus tachycardia Possible Left atrial enlargement Borderline ECG When compared with ECG of 16-AUG-2021 22:01, No significant change was found Referred By: Generic ED Physician Electronically Signed By:KRISTI MAYORGA MD
[2023-08-09 15:48] VITALS: BP 122/78; PULSE 92; RESP 18; TEMP 36.1; O2SAT 97; BMI 33.1
--- NOTE | 2023-08-09 16:08 | ED_ITS ---
HPI - Psych General Chief Complaint: Psychiatric Symptoms Stated Complaint: SI Crisis Time Seen by Provider: 08/09/23 15:59 Source: patient Mode of arrival: ambulatory Limitations: no limitations History of Present Illness ED Provider: Dr. Edel Kinsey HPI Narrative: Patient comes to the emergency room complaining of hearing ?Piyush voices? telling him to hurt himself and calling him ?piece of shit , patient having suicidal thoughts. Patient states that he used to take Invega for his symptoms. Patient states that the intensity of the voices decreased but they never went away. Over last week, patient states that he has been having difficulty remembering his voice. Patient states that he came immediately to the emergency room and did not attempt hurting himself in any way. Patient denies any physical symptoms. Related Data Home Medications ?Medication ?Instructions ?Recorded ?Confirmed dextroamphetamine-amphetamine ER 1 cap PO QAM 08/09/23 08/09/23 25 mg 24hr capsule,extend release (Adderall XR) hydroxyzine pamoate 50 mg capsule 50 mg PO DAILY PRN Agitation 08/09/23 08/09/23 lithium carbonate 300 mg 300 mg PO BID 08/09/23 08/09/23 tablet,extended release paliperidone palmitate 156 mg/mL 156 mg IM DIRECTED 08/09/23 08/09/23 intramuscular syringe (Invega Sustenna) Allergies Allergy/AdvReac Type Severity Reaction Status Date / Time Albuterol Allergy Unknown Unknown Uncoded 08/09/23 15:51 Flovent HFA Allergy Unknown Unknown Uncoded 08/09/23 15:51 Review of Systems 2 Review of Systems: Constitutional : No Weight loss, No Fever, No Chills, No Night Sweats, No Fatigue, No Malaise ENT/Mouth : No Hearing loss, No Ear Pain, No Nasal Congestion, No Sinus Pain, No Hoarseness, No sore throat, No Rhinorrhea, No Swallowing Difficulty Eyes: No Eye Pain, No Swelling, No Redness, No Foreign Body, No Discharge, No Vision Changes Cardiovascular : No Chest Pain, No SOB, No Dyspnea on Exertion, No Orthopnea, No Edema, No Palpitations Respiratory : No Cough, No Sputum, No Wheezing, No Smoke Exposure, No Dyspnea Gastrointestinal : No Nausea, No Vomiting, No Diarrhea, No Constipation, No abdominal Pain, No Hematochezia, No Melena Genitourinary : no irregular bleeding, No Dysuria, No Urinary Frequency, No Hematuria, No Urinary Incontinence, No Urgency, No Flank Pain, No Urinary Flow Changes, No Hesitancy Musculoskeletal : No joint pain, No Myalgias, No Joint Swelling Skin : No Skin Lesions, No rash Neuro : No Weakness, No Numbness, No Paresthesias, No Loss of Consciousness, No Dizziness, No Headache Psych : Having frequent panic attacks, No SI/HI/AH/VH, complaining of suicidal ideation, complaining of hearing voices Heme/Lymph: No Bruising, No Bleeding,No Lymphadenopathy Endocrine : No Polyuria, No Polydipsia, No Temperature Intolerance [facility] Past Medical History Medical History Asthma Anxiety disorder, unspecified Suicide attempt by acetaminophen overdose ADHD Acetaminophen overdose Depression PTSD (post-traumatic stress disorder) Depression Anxiety Social History Social History Household Members: Foster Family Housing: House Do you presently have visiting nurse or other home services: No Alcohol intake: current Alcohol intake frequency: holidays/special occasions only Patient Tobacco Use Status: Never used Tobacco Smoked in Last 30 Days: Yes e-Cigarette/Vaping Use: Never Used Second Hand Smoke Exposure: Yes (as a child, mom smoked) Use of substances other than those prescribed or required for medical reasons: No Substance Use Type: Marijuana Advance Directives: No Advance Directives Information Provided: No service: No Current occupational status: unemployed Sexual orientation: Did not discuss. Physical Exam 2 Vital Signs: Vital Signs: Last Vital Signs Temp 97.6 F 08/10/23 05:47 Pulse 52 08/10/23 05:47 Resp 16 08/10/23 05:47 BP 121/69 08/10/23 05:47 Pulse Ox 97 08/10/23 05:47 O2 Del Method Room Air 08/10/23 05:47 BMI result Body Mass Index 33.1 Const: Other: Appearance: Alert. Oriented X3. No acute distress. Eyes: Pupils equal, round and reactive to light. ENT: Pharynx normal. Neck: Normal inspection. Neck supple. No lymph nodes noted. No crepitus CVS: Normal heart rate and rhythm. Pulses normal. Normal S1 and S2 Respiratory: No respiratory distress. Breath sounds normal. No Wheezing. No rales Abdomen: Soft and nontender. No rigidity. No distention. Skin: Skin warm and dry. Normal skin color. Normal skin turgor. Extremities: No lower extremity edema. No Lacerations. No Rash Neuro: Oriented X 3. No motor deficit. No sensory deficit. Moving all extremities. No slurred speech. CN 2 through 12 grossly intact Psych: calm, cooperative, normal affect Course Course Course Narrative: -all of patient's labs pending -care team consult pending -physician observation started at 16:11 -patient is here voluntarily, at this time, section 12 not indicated Medical Decision Making Medical Decision Making MDM Narrative: -my interpretation of labs, no acute results in hematology or chemistry, negative U tox -17:58, the care team evaluated the patient, patient has, and hallucinations, psychotic features, care team recommends inpatient bed search, now on a Section 12 08/10/2023 at 07:08 hours,Dr. Adolph Aquino's note, physician observation continued: Patient has been in the emergency department for 15 hours. There were no reported incidents on the patient by the overnight nursing staff. Patient has been evaluated by the care team and they are doing in-patient bed search for this patient.Patient will remain in the emergency department Behavioral Health Unit until disposition can be determined or until patient's symptoms improve over time. Lab Data 08/09/23 16:39 08/09/23 16:39 Labs: Lab Results 08/09/23 Range/Units 16:39 WBC 13.2 H (4.8-10.8) X10*3/uL RBC 4.25 L (4.60-5.80) X10*6/uL Hgb 12.3 L (14.0-18.0) g/dl Hct 36.1 L (42.0-52.0) % MCV 84.9 (80.0-98.0) fL MCH 28.9 (27.0-33.0) pg MCHC 34.1 (31.0-36.0) g/dl RDW 13.0 (11.0-16.0) % Plt Count 392 D (160-400) X10*3/uL MPV 10.0 (9.4-12.4) fL Immature Gran % (Auto) 0.3 (0.0-0.4) % Neut % (Auto) 75.2 H (45-73) % Lymph % (Auto) 17.5 L (20-40) % [place] % (Auto) 5.7 (2-11) % Eos % (Auto) 0.7 (0-4) % Baso % (Auto) 0.6 (0-2) % Lymph # (Auto) 2.3 (1.2-4.9) X10*3/uL [place] # (Auto) 0.8 (0.1-1.2) X10*3/uL Eos # (Auto) 0.1 (0.0-0.4) X10*3/uL Baso # (Auto) 0.1 (0.0-0.2) X10*3/uL Abs Immat Gran (auto) 0.04 H (0.00-0.03) X10*3/uL Absolute Neuts (auto) 9.9 H (2.0-8.3) x10*3/uL Absolute Nucleated RBC 0.000 (0.0-0.012) X10*3/uL Nucleated RBC % (auto) 0.0 (0.0-0.2) /100WBC Sodium 140 (135-145) mmol/L Potassium 4.0 (3.3-5.1) mmol/L Chloride 108 (96-108) mmol/L Carbon Dioxide 23 (22-29) mmol/L Anion Gap 13 (12-20) BUN 5 L (9-16) mg/dL Creatinine 0.63 (0.5-1.4) mg/dL Estim Creat Clear Calc 214.4 Estimated GFR > 60 Random Glucose 113 (60-115) mg/dL Calcium 9.1 (8.4-10.2) mg/dL Total Bilirubin 0.3 (0.0-1.0) mg/dL AST 13 (5-37) U/L ALT 14 (0-40) U/L Alkaline Phosphatase 99 (39-117) U/L Troponin I High Sens < 2.7 (<3.5-35.0) ng/L Total Protein 7.2 (6.5-8.0) g/dL Albumin 4.2 (3.5-5.0) g/dL Urine Color Yellow Urine Appearance Clear Urine pH 7.5 (5.0-9.0) Ur Specific [place] <= 1.005 (1.005-1.025) Urine Protein Negative (Neg-Trace) mg/dL Urine Glucose (UA) Negative (Negative) mg/dL Urine Ketones Negative (Negative) mg/dL Urine Blood Negative (Negative) Urine Nitrite Negative (Negative) Ur Leukocyte Esterase Negative (Negative) Salicylates < 5.0 L (15-30) mg/dL Urine Opiates Screen Not Detected (Not Detect) Ur Buprenorphine Scrn Not Detected (Not Detect) ng/mL Ur Oxycodone Screen Not Detected (Not Detect) ng/mL Urine Methadone Screen Not Detected (Not Detect) ng/mL Urine Fentanyl Screen Not Detected (Not Detect) Acetaminophen < 3 (<30) mcg/mL Ur Barbiturates Screen Not Detected (Not Detect) Ur Phencyclidine Scrn Not Detected (Not Detect) Ur Amphetamines Screen Not Detected (Not Detect) U Benzodiazepines Scrn Not Detected (Not Detect) Urine Cocaine Screen Not Detected (Not Detect) U Marijuana (THC) Screen Not Detected (Not Detect) Ethyl Alcohol < 10 mg/dL Discharge Plan Discharge Clinical Impression: Suicidal ideation, Auditory hallucination Patient Disposition: Still a Patient Prescriptions: No Action hydroxyzine pamoate 50 mg capsule 50 mg PO DAILY PRN (Reason: Agitation) lithium carbonate 300 mg tablet extended release 300 mg PO BID dextroamphetamine-amphetamine [Adderall XR] 25 mg capsule,extended release 24hr 1 cap PO QAM Invega Sustenna 156 mg/mL syringe 156 mg IM DIRECTED Rx Instructions: Once every 28 days Interventions: Kemper-Suicide Risk Severity Scale Last Done: 08/09/23 16:11 Print Language: Luxembourgish
[2023-08-09 16:11] VITALS: RESP 16
[2023-08-09 16:48] LABS: MANUAL DIFF FLAG NO
[2023-08-09 16:51] LABS: Basophils Absolute Auto 0.1 X10*3/uL (0.0-0.2); Basophils Percent Auto 0.6 % (0-2); Eosinophils Absolute Auto 0.1 X10*3/uL (0.0-0.4); Eosinophils Percent Auto 0.7 % (0-4); Hematocrit 36.1 % (42.0-52.0); Hemoglobin 12.3 g/dl (14.0-18.0); Imm Gran Abs Auto 0.04 X10*3/uL (0.00-0.03); Imm Gran Pct Auto 0.3 % (0.0-0.4); Lymphocytes Absolute Auto 2.3 X10*3/uL (1.2-4.9); Lymphocytes Percent Auto 17.5 % (20-40); Mean Corpuscular HGB Conc 34.1 g/dl (31.0-36.0); Mean Corpuscular Hemoglobin 28.9 pg (27.0-33.0); Mean Corpuscular Volume 84.9 fL (80.0-98.0); Monocytes Absolute Auto 0.8 X10*3/uL (0.1-1.2); Monocytes Percent Auto 5.7 % (2-11); Neutrophils Absolute Auto 9.9 x10*3/uL (2.0-8.3); Neutrophils Percent Auto 75.2 % (45-73); Platelet Count 392 X10*3/uL (160-400); Red Blood Count 4.25 X10*6/uL (4.60-5.80); White Blood Count 13.2 X10*3/uL (4.8-10.8)
[2023-08-09 16:55] LABS: Appearance Urine Clear; Color Urine Yellow; Glucose Urine UA Negative (Negative); Leukocyte Esterase Urine Negative (Negative); Nitrite Urine Negative (Negative); PH 7.5 (5.0-9.0); Specific Gravity - Urine <= 1.005 (1.005-1.025); Urine Blood Negative (Negative); Urine Ketones Negative (Negative); Urine Protein Negative (Neg-Trace)
[2023-08-09 17:08] LABS: Acetaminophen LAB < 3 mcg/mL (<30); Amphetamine Screen Urine Not Detected (Not Detect); Barbiturates, Urine Not Detected (Not Detect); Benzodiazepines Screen Urine Not Detected (Not Detect); Buprenorphine Scr Not Detected (Not Detect); Cannabinoid Screen Urine Not Detected (Not Detect); Cocaine Screen Urine Not Detected (Not Detect); Fentanyl, urine Not Detected (Not Detect); Methadone Screen, Urine Not Detected (Not Detect); Opiate Screen Urine Not Detected (Not Detect); Oxycodone Screen Urine Not Detected (Not Detect); Phencyclidine Screen Urine Not Detected (Not Detect); Salicylate < 5.0 mg/dL (15-30)
[2023-08-09 17:16] LABS: Alanine Aminotransferase 14 U/L (0-40); Albumin Level 4.2 g/dL (3.5-5.0); Alkaline Phosphatase 99 U/L (39-117); Anion Gap 13 (12-20); Aspartate Amino Transferase 13 U/L (5-37); Bilirubin Total 0.3 mg/dL (0.0-1.0); Blood Urea Nitrogen 5 mg/dL (9-16); Calcium 9.1 mg/dL (8.4-10.2); Carbon Dioxide 23 mmol/L (22-29); Chloride 108 mmol/L (96-108); Creatinine Clr Calc Pharmacy 214.4; Estimated Glomerular Filt Rate > 60; Ethanol < 10 mg/dL; Glucose Random 113 mg/dL (60-115); Sodium 140 mmol/L (135-145); Total Protein 7.2 g/dL (6.5-8.0)
[2023-08-09 18:35] LABS: Troponin-I High Sensitivity < 2.7 ng/L (<3.5-35.0)
[2023-08-10 05:47] VITALS: BP 121/69; PULSE 52; RESP 16; TEMP 36.4; O2SAT 97
--- NOTE | 2023-08-10 07:31 | PC.NURSE ---
Assumed care of patient at 0645, patient appears to be in no apparent distress this am, ambulating with steady gait to bathroom. Patient offers no complaints to this RN. Continue plan of care for inpatient bedsearch
[2023-08-10] MEDS: Dextroamphetamine/Amphetamine XR 5 MG CAP.ER.24H 25 MG PO (08:26)
[2023-08-10] MEDS: Lithium Carbonate ER 300 MG TABLET.ER PO ×2 (08:26→20:13)
--- NOTE | 2023-08-10 14:02 | MHC.CARE ---
CARE team completed reassessment, pt continues to meet criteria for inpatient psychiatric level of care and will remain in ER pending placement.
--- NOTE | 2023-08-10 19:04 | PC.NURSE ---
patient appears to remain at rest at present respirations are even and unlabored patient appears in no distress.
[2023-08-10 19:43] VITALS: BP 139/70; PULSE 86; RESP 16; TEMP 36.9; O2SAT 98
[2023-08-10 23:25] VITALS: BP 124/63; PULSE 100; RESP 16; TEMP 36.9; O2SAT 97
[2023-08-11 00:14] VITALS: BMI 32.8
--- NOTE | 2023-08-11 03:31 | PC.ADMIT ---
Ginger Moreira is a 22yo, single, female to male, admitted on CV from ED [facility] for treatment of psychosis and unspecified anxiety. Pt was presented to [facility] ED for evaluation due to command AH to harm himself, increase anxiety and poor sleep. He has previous assessment of suicide attempt due to intentional overdose of 30 tablets of Tylenol and 5 Ibuprofen secondary to command AH to harm self. Pt was admitted to [facility] M3 from 09/26/20 to 10/26/20. Upon unit admission, he is calm and pleasant, mood is anxious and affect is flat. Pt denies SI/HI/AV/VH. Pt signed some release of information forms, statement of understanding and complete menu sheet. He did not fill my contacts form, states he is tired and will continue tomorrow morning. Skin check done and v/s was stable. Treatment plan and safety tools initiated but yet to be signed. Pt was placed on 15 minutes safety check.
[2023-08-11 07:55] VITALS: BP 116/63; PULSE 112; RESP 18; TEMP 37.3; O2SAT 96
[2023-08-11] MEDS: Dextroamphetamine/Amphetamine XR 5 MG CAP.ER.24H 25 MG PO (08:25)
[2023-08-11] MEDS: Lithium Carbonate ER 300 MG TABLET.ER PO ×2 (08:26→20:36)
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
[2023-08-11 09:32] LABS: Cholesterol 159 mg/dL (<200); HDL Cholesterol 47 mg/dL (>40); LDL Cholesterol Calculated 92 mg/dL (<100); Triglycerides 101 mg/dL (<150)
[2023-08-11 09:41] LABS: Estimated Average Glucose 105 mg/dL; Hemoglobin A1c % 5.3 % (<6.0)
[2023-08-11 11:57] VITALS: BP 118/79; PULSE 122; RESP 16; TEMP 37.2; O2SAT 93
[2023-08-11 20:00] VITALS: BP 140/76; PULSE 95; RESP 16; TEMP 36.9; O2SAT 98
[2023-08-12 07:41] VITALS: BP 138/69; PULSE 108; RESP 16; TEMP 37.1; O2SAT 96
--- NOTE | 2023-08-12 08:50 | P.PNPSI_ITS ---
Subjective Subjective Date of Service: 08/12/23 Reason For Visit: psychosis Subjective Notes: 3 Day Interim History: Reviewed with Dr. Luna. Pt signed 3 day notice on 08/11/23. Active on unit, keeping to self, attending groups. Pt reports feeling good today; pt stated, I'm feeling a lot better. I think it was just having a panic attack that made me feel that way. I want to leave and follow up with my outpatient doctor. I feel like I can go back home and don't need to be here . Pt denies SI/HI/VH/AH. Pt reports he has an appointment set up with his outpatient psychiatric provider for 08/27/23; appointment was confirmed. Pt to be discharged home tomorrow on 3 day notice. Medication Compliance: Yes Side effects from medications: No Attending Groups: Yes Review of Systems Constitutional: Reports as per HPI Eyes: Reports as per HPI Reports as per HPI Cardiovascular: Reports as per HPI Respiratory: Reports as per HPI Gastrointestinal: Reports as per HPI Genitourinary: Reports as per HPI Musculoskeletal: Reports as per HPI Skin/Breast: Reports as per HPI Reports as per HPI Psychiatric: Reports as per HPI Endocrine: Reports as per HPI Hematologic/Lymphatic: Reports as per HPI Allergic/Immunologic: Reports as per HPI Mental Status Exam Mental Status Exam Narrative: Pt is alert and oriented; behavior is cooperative and calm; dressed in casual attire; mood is described as good ; eye contact appropriate; Speech is normal rate, volume and not pressured; thought process is organized; Thought content is on tx; otherwise pertinent to relevant topics and without any delusional content, paranoid ideations or grandiosity; denies SI/HI/VH/AH. Diagnostics Vital Signs (24Hr): Vital Signs - 24 hr 08/11/23 11:57 08/11/23 20:00 08/12/23 07:41 Temperature 98.9 F 98.5 F 98.7 F Pulse Rate 122 H 95 108 H Respiratory Rate 16 16 16 Blood Pressure 118/79 140/76 H 138/69 Pulse Oximetry 93 98 96 Oxygen Delivery Method Room Air Room Air Room Air BMI result Body Mass Index 32.8 Labs 08/12/23 09:02 08/12/23 09:02 Labs: Laboratory Results - last 48 hr 08/11/23 08:00 Estimat Average Glucose 105 Hemoglobin A1c % 5.3 Triglycerides 101 Cholesterol 159 LDL Cholesterol, Calc 92 HDL Cholesterol 47 Medications Medications Current Medications Acetaminophen (Acetaminophen 325 Mg Tablet) 650 mg PO Q6H PRN PRN Reason: Headache/Pain Mild Scale (1-3) Al Hydroxide/Mg Hydroxide (Magnesium Hydrox/Alum Hydrox 30 Ml Oral.Susp) 30 ml PO Q6H PRN PRN Reason: Heartburn/Nausea Amphetamine/Dextroamphetamine (Dextroamphetamine/Amphetamine Xr 5 Mg Cap.Er.24h) 25 mg PO DAILY [facility] Last Admin: 08/11/23 08:25 Dose: 25 mg Hydroxyzine HCl (Hydroxyzine Hcl 50 Mg Tablet) 50 mg PO DAILY PRN PRN Reason: Agitation Hydroxyzine HCl (Hydroxyzine Hcl 25 Mg Tablet) 25 mg PO Q6H PRN PRN Reason: Anxiety [place] Carbonate ([place] Carbonate Er 300 Mg Tablet.Er) 300 mg PO BID [facility] Last Admin: 08/11/23 20:36 Dose: 300 mg Magnesium Hydroxide (Milk Of Magnesia 30 Ml Oral.Susp) 30 ml PO DAILY PRN PRN Reason: Constipation Nicotine (Nicotine 21 Mg Patch.Td24) 21 mg TRANSDERMA DAILY PRN PRN Reason: smoking cessation Nicotine Polacrilex (Nicotine Polacrilex 2 Mg Gum) 4 mg BUCCAL Q2H PRN PRN Reason: Nicotine Cravings Olanzapine (Olanzapine 5 Mg Tablet) 5 mg PO TID PRN PRN Reason: agitation Paliperidone Palmitate (Paliperidone Palmitate 156 Mg/Ml Syringe) 156 mg IM Q28D [place] Trazodone HCl (Trazodone Hcl 50 Mg Tablet) 50 mg PO BEDTIME MRX1 PRN PRN Reason: Insomnia Allergies Allergies Allergy/AdvReac Type Severity Reaction Status Date / Time Albuterol Allergy Unknown Unknown Uncoded 08/09/23 15:51 Flovent HFA Allergy Unknown Unknown Uncoded 08/09/23 15:51 Assessment & Plan Assessment & Plan (1) Schizoaffective disorder, depressive type: Status: Acute Code(s): F25.1 - Schizoaffective disorder, depressive type (2) PTSD (post-traumatic stress disorder): Status: Acute Code(s): F43.10 - Post-traumatic stress disorder, unspecified (3) ADHD: Status: Acute Code(s): F90.9 - Attention-deficit hyperactivity disorder, unspecified type Plan Patient is a 22 year old male with hx of schizoaffective d/o, PTSD, and ADHD, who self presented to [facility] ER d/t command auditory hallucinations to harm himself, increased anxiety and poor sleep. Plan: CV 15 minute safety checks Continue home medications encourage groups educate regarding importance of mediation compliance discharge planning 08/11: Pt signed 3 day notice on 08/11/23. Active on unit, keeping to self, attending groups. Pt reports feeling good today; pt stated, I'm feeling a lot better. I think it was just having a panic attack that made me feel that way. I want to leave and follow up with my outpatient doctor. I feel like I can go back home and don't need to be here . Pt denies SI/HI/VH/AH. Pt reports he has an appointment set up with his outpatient psychiatric provider for 08/27/23; appointment was confirmed. Pt to be discharged home tomorrow on 3 day notice. Patient educated on: diagnosis, medication risk/benefits and therapeutic strategies Informed Consent: understands Reason for continued inpatient stay Substantial Risk for: stable for discharge Time Spent With Patient Time: Total time managing care of this patient today _20___ minutes.
[2023-08-12 09:19] LABS: MANUAL DIFF FLAG NO
[2023-08-12 09:25] LABS: Basophils Absolute Auto 0.1 X10*3/uL (0.0-0.2); Basophils Percent Auto 0.7 % (0-2); Eosinophils Absolute Auto 0.1 X10*3/uL (0.0-0.4); Eosinophils Percent Auto 0.8 % (0-4); Hematocrit 38.2 % (42.0-52.0); Imm Gran Abs Auto 0.03 X10*3/uL (0.00-0.03); Imm Gran Pct Auto 0.3 % (0.0-0.4); Lymphocytes Absolute Auto 2.3 X10*3/uL (1.2-4.9); Lymphocytes Percent Auto 23.9 % (20-40); Mean Corpuscular Volume 85.3 fL (80.0-98.0); Mean Platelet Volume 9.9 fL (9.4-12.4); Monocytes Absolute Auto 0.6 X10*3/uL (0.1-1.2); Monocytes Percent Auto 6.2 % (2-11); Neut%MD 68.1 %; Neutrophils Absolute Auto 6.6 x10*3/uL (2.0-8.3); Neutrophils Percent Auto 68.1 % (45-73); Platelet Count 395 X10*3/uL (160-400); Red Blood Count 4.48 X10*6/uL (4.60-5.80); Red Cell Distribution Width 13.1 % (11.0-16.0); WBCANC 9.7 X10*3/uL; White Blood Count 9.7 X10*3/uL (4.8-10.8)
[2023-08-12 09:30] LABS: Ammonia 37 umol/L (13-55)
[2023-08-12] MEDS: Lithium Carbonate ER 300 MG TABLET.ER PO ×2 (09:38→21:40)
[2023-08-12] MEDS: Dextroamphetamine/Amphetamine XR 5 MG CAP.ER.24H 25 MG PO (09:38)
[2023-08-12 09:40] LABS: Lithium 0.19 mmol/L (0.60-1.20)
[2023-08-12 09:47] LABS: Alanine Aminotransferase 12 U/L (0-40); Albumin Level 3.9 g/dL (3.5-5.0); Alkaline Phosphatase 88 U/L (39-117); Anion Gap 11 (12-20); Aspartate Amino Transferase 12 U/L (5-37); Bilirubin Direct 0.2 mg/dL (0.0-0.5); Bilirubin Total 0.6 mg/dL (0.0-1.0); Blood Urea Nitrogen 8 mg/dL (9-16); Calcium 9.1 mg/dL (8.4-10.2); Carbon Dioxide 22 mmol/L (22-29); Chloride 109 mmol/L (96-108); Creatinine Clr Calc Pharmacy 223.9; Estimated Glomerular Filt Rate > 60; Glucose Random 101 mg/dL (60-115); Potassium 4.3 mmol/L (3.3-5.1); Sodium 138 mmol/L (135-145)
[2023-08-12 19:45] VITALS: BP 119/66; PULSE 91; RESP 16; TEMP 37; O2SAT 97
[2023-08-12] MEDS: traZODone HCL 50 MG TABLET PO (21:40)
[2023-08-13 07:38] VITALS: BP 131/71; PULSE 103; RESP 16; TEMP 37.4; O2SAT 97
--- NOTE | 2023-08-13 08:20 | PM.PSYDC ---
DS: Providers Provider Date of Service: 08/13/23 Date of admission: 08/10/23 21:03 Date of discharge: 08/13/23 Primary care physician: Rigoberto Physician Admitting clinician: Linnette Noble Attending physician on admission: Adolfo Luna Attending physician on discharge: Adolfo Luna Discharging clinician: Linnette Noble DS: Diagnosis Discharge Diagnosis (1) Schizoaffective disorder, depressive type: Status: Acute (2) PTSD (post-traumatic stress disorder): Status: Acute (3) ADHD: Status: Acute DS: Medications Discharge Medications Home Medications: Home Medications ?Medication ?Instructions ?Recorded ?Confirmed dextroamphetamine-amphetamine ER 1 cap PO QAM 08/09/23 08/09/23 25 mg 24hr capsule,extend release (Adderall XR) hydroxyzine pamoate 50 mg capsule 50 mg PO DAILY PRN Agitation 08/09/23 08/09/23 lithium carbonate 300 mg 300 mg PO BID 08/09/23 08/09/23 tablet,extended release paliperidone palmitate 156 mg/mL 156 mg IM DIRECTED 08/09/23 08/09/23 intramuscular syringe (Invega Sustenna) Mental Status Exam Mental Status Exam Narrative: Pt is alert and oriented; behavior is cooperative and calm; dressed in casual attire; mood is described as good ; eye contact appropriate; Speech is normal rate, volume and not pressured; thought process is organized; Thought content is on tx; otherwise pertinent to relevant topics and without any delusional content, paranoid ideations or grandiosity; denies SI/HI/VH/AH. Data Data Completed and Pending Completed studies during hospitalization [Text1]: 08/09/23 08/11/23 08/12/23 16:39 08:00 09:02 WBC 13.2 H 9.7 RBC 4.25 L 4.48 L Hgb 12.3 L 13.0 L Hct 36.1 L 38.2 L MCV 84.9 85.3 MCH 28.9 29.0 MCHC 34.1 34.0 RDW 13.0 13.1 Plt Count 392 D 395 MPV 10.0 9.9 Immature Gran % (Auto) 0.3 0.3 Neut % (Auto) 75.2 H 68.1 Lymph % (Auto) 17.5 L 23.9 [place] % (Auto) 5.7 6.2 Eos % (Auto) 0.7 0.8 Baso % (Auto) 0.6 0.7 Lymph # (Auto) 2.3 2.3 [place] # (Auto) 0.8 0.6 Eos # (Auto) 0.1 0.1 Baso # (Auto) 0.1 0.1 Abs Immat Gran (auto) 0.04 H 0.03 Absolute Neuts (auto) 9.9 H 6.6 Absolute Nucleated RBC 0.000 0.000 Nucleated RBC % (auto) 0.0 0.0 Sodium 140 138 Potassium 4.0 4.3 Chloride 108 109 H Carbon Dioxide 23 22 Anion Gap 13 11 L BUN 5 L 8 L Creatinine 0.63 0.60 Estim Creat Clear Calc 214.4 223.9 Estimated GFR > 60 > 60 Random Glucose 113 101 Estimat Average Glucose 105 Hemoglobin A1c % 5.3 Calcium 9.1 9.1 Total Bilirubin 0.3 0.6 Direct Bilirubin 0.2 AST 13 12 ALT 14 12 Alkaline Phosphatase 99 88 Ammonia 37 Troponin I High Sens < 2.7 Total Protein 7.2 7.0 Albumin 4.2 3.9 Triglycerides 101 Cholesterol 159 LDL Cholesterol, Calc 92 HDL Cholesterol 47 TSH 1.20 Urine Color Yellow Urine Appearance Clear Urine pH 7.5 Ur Specific [place] <= 1.005 Urine Protein Negative Urine Glucose (UA) Negative Urine Ketones Negative Urine Blood Negative Urine Nitrite Negative Ur Leukocyte Esterase Negative Salicylates < 5.0 L Urine Opiates Screen Not Detected Ur Buprenorphine Scrn Not Detected Ur Oxycodone Screen Not Detected Urine Methadone Screen Not Detected Urine Fentanyl Screen Not Detected Acetaminophen < 3 Ur Barbiturates Screen Not Detected Ur Phencyclidine Scrn Not Detected Ur Amphetamines Screen Not Detected U Benzodiazepines Scrn Not Detected [place] 0.19 L Urine Cocaine Screen Not Detected U Marijuana (THC) Screen Not Detected Ethyl Alcohol < 10 DS: Summary Hospital Course Hospital Course: Patient is a 22 year old male with hx of schizoaffective d/o, PTSD, and ADHD, who self presented to [facility] ER d/t command auditory hallucinations to harm himself, increased anxiety and poor sleep. Per crisis report, pt reports hearing voices telling him to cut myself and kill myself . Pt reports AH has increased in passed two weeks. Pt also reports visual and tactile hallucinations for the past year. Pt stated, I see people and feel like I'm being stabbed or cut . Pt denies HI. Pt reports his Invega Sustenna injection dosage was lowered about two months ago and since there his AH has been increased. Pt reported poor sleep and appetite d/t intensity of his hallucinations. During admission assessment, pt presents alert, oriented, calm and cooperative. Pt reports feeling okay today; pt stated, a month ago they lowered my monthly Invega injections and I've been having panic attacks and voices telling me to hurt myself ever since. Since I've been here, the voices have stopped because I've been taking the meds more consistently . Pt reports he sometimes forgets to take my meds or I'm not home when they come to give me my meds so I miss some doses . Pt stated, there is something soothing about being here. I have an appointment set up with my outpatient psychiatrist. I was just having a stressful day thinking about getting disability and food stamps. I think I just needed a place to cool down . Pt denies SI/HI/VH/AH. During hospital course, CV/3 day notice 15 minute safety checks Continue home medications encourage groups educate regarding importance of mediation compliance discharge planning Pt signed 3 day notice on 08/11/23. Active on unit, keeping to self, attending groups. Pt reports feeling good today; pt stated, I'm feeling a lot better. I think it was just having a panic attack that made me feel that way. I want to leave and follow up with my outpatient doctor. I feel like I can go back home and don't need to be here . Pt denies SI/HI/VH/AH. Pt reports he has an appointment set up with his outpatient psychiatric provider for 08/27/23; appointment was confirmed. Pt to be discharged home tomorrow on 3 day notice. Pt reports feeling good and ready to return home. Pt reports he plans on following up with outpatient providers. Pt denies SI/HI/VH/AH. Time spent discussing smoking cessation with patient: 3 to 10 minutes Status at Discharge Cognitive/behavioral status at discharge: Patient was interviewed prior to discharge and found to be fully oriented and without SI or HI. Patient has insight and demonstrates good judgment in terms of wanting to pursue treatment. Patient has a safety plan that includes presenting to the closest ER or calling 911 if feeling unsafe. Functional status at discharge: independent ambulation Overall status at discharge: patient is back to baseline Time Spent with Patient Time attestation: Total time managing care of this patient today _20___ minutes. Time spent: Less than 30 minutes Discharge Plan Discharge Anticipated Discharge Date/Time: 08/13/23 10:30 Patient Disposition: Home, Self-Care Discharge Diagnosis: Schizoaffective d/o, PTSD, ADHD Referrals: Dr. Nir Rodriguez (Psychiatry) [Other] - 08/27/23 3:00 pm (IN OFFICE APPOINTMENT) Physician,None [Primary Care Provider] - 1 Week Discharge Medications: Continued hydroxyzine pamoate 50 mg capsule 50 mg PO DAILY PRN (Reason: Agitation) lithium carbonate 300 mg tablet extended release 300 mg PO BID dextroamphetamine-amphetamine [Adderall XR] 25 mg capsule,extended release 24hr 1 cap PO QAM Invega Sustenna 156 mg/mL syringe 156 mg IM DIRECTED Rx Instructions: Once every 28 days Discharge Orders: Discharge Order (Routine); Ordered 08/13/23 Ordered By: Linnette Noble Diet: Regular diet Activity on Discharge: As tolerated Stand Alone Forms: Patient Portal Discharge page Print Language: Faroese Care Plan Goals: Maintain mood and safe behaviors Take medications as prescribed Practice coping skills Continue with outpatient providers and reach out to them as needed Health Concerns: Mood stability and behaviors Plan of Treatment: Follow up with your PCP, psychiatric provider and other outpatient providers regarding above concerns Take medications as prescribed Assessment: Patient was interviewed prior to discharge and found to be fully oriented and without SI or HI. Patient has insight and demonstrates good judgment in terms of wanting to pursue treatment. Patient has a safety plan that includes presenting to the closest ER or calling 911 if feeling unsafe.
[2023-08-13] MEDS: Dextroamphetamine/Amphetamine XR 5 MG CAP.ER.24H 25 MG PO (08:49)
[2023-08-13] MEDS: Lithium Carbonate ER 300 MG TABLET.ER PO (08:50)
== END 2023-08-13 11:18 | disposition home or self-care (01) | DRG 750 ==
LOC: HO.ED 08-10 07:09 → HO.PADLT16 08-10 21:22
PROVIDERS: Emergency Medicine; Admitting Provider Psychiatry & Neurology Psychiatry; Emergency Provider Emergency Medicine Emergency Medical Services; Responsible Provider Registered Nurse; Visit Provider Psychiatry & Neurology Psychiatry
DX: F25.1 Schizoaffective disorder, depressive type (principal); R45.851 Suicidal ideations; F17.210 Nicotine dependence, cigarettes, uncomplicated; F90.9 Attention-deficit hyperactivity disorder, unspecified type; F43.10 Post-traumatic stress disorder, unspecified; Z71.6 Tobacco abuse counseling; Z79.899 Other long term (current) drug therapy
CPT/HCPCS: 36415; 80048; 80053; 80061; 80076; 80143; 80178; 80179; 80307; 81003; 82140; 83036; 84443; 84484; 85025; 93005; 99285; S9485

== ENCOUNTER → 2023-08-09 15:55 | Outpatient (BNV) | payer OTHER, SELFPAY | PROVIDERS: Admitting Provider Psychiatry & Neurology Psychiatry; Emergency Provider Emergency Medicine Emergency Medical Services; Visit Provider Internal Medicine Cardiovascular Disease | DX: R00.0 Tachycardia, unspecified (principal) | CPT/HCPCS: 93010 ==

== ENCOUNTER → 2023-08-10 21:03 | Outpatient (BNV) | payer OTHER, SELFPAY | PROVIDERS: Admitting Provider Psychiatry & Neurology Psychiatry; Emergency Provider Emergency Medicine Emergency Medical Services; Responsible Provider Registered Nurse; Visit Provider Registered Nurse | DX: F25.1 Schizoaffective disorder, depressive type (principal); F43.11 Post-traumatic stress disorder, acute; F90.9 Attention-deficit hyperactivity disorder, unspecified type | CPT/HCPCS: 90792; 99231 ==

== ENCOUNTER 2024-10-29 13:41 | Outpatient (REF) | payer OTHER, SELFPAY ==
[2024-10-29 15:38] LABS: Lithium 0.32 mmol/L (0.60-1.20)
== END 2024-10-29 13:42 | disposition home or self-care (01) ==
LOC: HO.LAB 13:41
DX: F25.1 Schizoaffective disorder, depressive type (principal); F43.10 Post-traumatic stress disorder, unspecified
CPT/HCPCS: 36415; 80178